=== PATIENT | female | born 1960 | race Caucasian/White ===

== ENCOUNTER 2025-04-26 12:29 | Emergency (ER) | payer MEDICARE, SELFPAY ==
[2025-04-26 12:43] VITALS: BP 111/76
--- NOTE | 2025-04-26 12:55 | ED.GENMED ---
History of Present Illness
General
Chief Complaint: Fall
Time Seen by Provider: 04/26/25 12:55
History of Present Illness
History of Present Illness:
REVIEW OF OLD RECORDS
The patient has a history of multiple sclerosis, A-fib, CHF, former smoker who denies COPD diagnosis despite what is listed in the chart and was admitted here in 2016 with MICHEAL
Note:
CHIEF COMPLAINT(S)
Fall with left arm pain and potential head injury.
HISTORY OF PRESENT ILLNESS
The patient is a 65-year-old female who presented to the emergency department following a fall at her residence in [facility]. Her reports she was found sitting on the bathroom floor after the safety rails outside the toilet gave way while
she was attempting to use them. At the time of discovery, she complained of left arm pain, specifically in the forearm and wrist area, and mentioned she may have hit her head. She denies current headache and shortness of breath and is on the
anticoagulant apixaban (Eliquis). Notably, the patient reports tenderness and mild swelling in the distal forearm. There was no mention of abdominal pain or pelvic injuries, and the patient did not sustain injuries to other parts of the body.
ADDITIONAL HISTORY OBTAINED FROM SOURCES OTHER THAN THE PATIENT
Per the patients , the patient was indeed found in the bathroom after returning from the grocery store. He notes the patient did not experience any headaches post-fall but expressed concern about a potential wrist fracture.
CHRONIC MEDICAL CONDITIONS SIGNIFICANTLY AFFECTING CARE
The patient has a notable history of multiple sclerosis (MS), for which she takes baclofen.
SOCIAL DETERMINANTS AFFECTING HEALTH
The patient resides in [facility] since December, with a potential mention of housing adjustment challenges.
SOCIAL HISTORY
The patient has a history of smoking but has since ceased. There is no current use of tobacco products.
REVIEW OF SYSTEMS
- Musculoskeletal: Left forearm and wrist pain with tenderness and mild swelling.
- Neurological: No current headaches; history of MS.
- Respiratory: Decreased breath sounds noted, but denies shortness of breath.
- Genitourinary: Reports feeling pressure or need to urinate, but no new abdominal pain.
- Integumentary: Physical exam reveals skin checks are implemented, and the patient currently uses a Purewick device for urinary collection.
PHYSICAL EXAM
- General: Appears somewhat generally weak and debilitated
- HEENT: Moist oral mucosa
- Cardiovascular: No chest wall tenderness
- Abdomen: Soft with no peritoneal signs, very mild diffuse tenderness however the patient states she has a sensation that she needs to void and denies abdominal trauma
- Neurologic: Excellent strength all extremities, no coordination deficits
- Psychiatric: Appropriate mental status, normal insight and judgement
- Extremities: Right BKA, no loss of range of motion of either hip
- Skin: No rash, no lesions
- Neurological: No acute neurological deficits noted.
- Respiratory: Slightly decreased breath sounds upon auscultation; related to past smoking history.
- Abdominal: No tenderness upon palpation.
Nursing notes reviewed and vital signs reviewed.
PROBLEM LIST
Acute:
- Fall with potential head injury.
- Left distal forearm and wrist pain with tenderness and mild swelling.
Chronic:
- Multiple Sclerosis (MS)
PLAN
- Obtain imaging: X-ray of the left wrist, chest X-ray, and computed tomography scan of the brain.
- Administer pain management: Offer acetaminophen or possible single dose of Percocet based on patients pain management preference.
- Discussed potential discharge from the emergency department, contingent upon normal imaging results.
DIFFERENTIAL DIAGNOSIS
The Differential Diagnosis includes, in no particular order and is not limited to:
- Wrist fracture
- Head injury with intracranial bleed
- Soft tissue injury of the left wrist
- Exacerbation of multiple sclerosis
- Neuronal injury due to fall
- Contusion from trauma
- Osteoporosis-related fracture
- Peripheral neuropathy due to fall
- Tendinitis of the wrist
- Subdural hematoma
RADIOLOGY
- Minimally displaced left distal radius fracture noted and no evidence for pneumonia
EKG
- Sinus 55, left axis deviation, poor R wave progression, no significant change from 10/18/2016
LABS
- None needed
UPDATE
The patient was given Percocet for pain. She was found to have a distal radius fracture but I do not feel that there is any significant amount of displacement to attempt reduction at this time. She was splinted. CT imaging also obtained.
04/26/25 - 16:[address] scan shows no evidence of intracranial bleeding. The patient has a confirmed broken wrist with a slight angulation, but there is no immediate need for reduction. The patient will be discharged with a prescription for Percocet for pain
management for a few days and is advised to follow up with an marketing operations specialist. Discharge paperwork is being prepared, and the prescription will be sent to the patients pharmacy. The patient�s will provide transportation.
Past History
Past History
ED Past Medical History: CVA, HTN, Hypercholesterolemia, NIDDM and Other (brain lesion, Fournge's gangrene)
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
Social History
Tobacco: Non-smoker
Alcohol: None
Drug: None
Personal:
Living: with family
Employment: Other
Family History
Family History: Other
Phy Exam
Physical Exam
Physical Exam:
See HPI
Course
Orders/Labs/Results
Orders:
Orders
04/26/25 13:05
Oxycodone/Acetaminophen [Percocet 5/325] 1 tablet PO NOW STA
CR Chest - 2 Views Urgent
Comment:
Reason For Exam: 90% RA former smoker
CR Forearm - Left 2 View Urgent
Comment:
Reason For Exam: distal trauma
04/26/25 13:07
CT Head W/o Iv Contrast Urgent
Comment:
Reason For Exam: head injury eliquis
04/26/25 13:09
Electrocardiogram (*1) Urgent
Reason for Study: Syncope
EKG- Treatment ONCE
04/26/25 13:58
Splints/Slings/Crut- Treatment ONCE
Location: Left
Type of Splint: Volar
Vital Signs
Initial and Last Documented VS:
Initial Vital Signs
Temp Pulse Resp BP Pulse Ox
36.8 C 54 16 111/76 92
04/26/25 12:43 04/26/25 12:43 04/26/25 12:43 04/26/25 12:43 04/26/25 12:43
Last Documented Vital Signs
Temp Pulse Resp BP Pulse Ox
36.8 C 81 16 125/78 91
04/26/25 12:43 04/26/25 16:05 04/26/25 16:05 04/26/25 16:05 04/26/25 16:05
*Pulse Oximetry
Patient hypoxic: yes (Borderline hypoxic at 92% on room air however the patient does have history of COPD)
*Critical Care Note
Total Time (30-74mins, 75-104mins- exclusive of procedures): Not Applicable
ED Attending Note
-
Portions of this chart may have been created with voice recognition software.� Occasional wrong word or��sound alike� substitutions may have occurred due to the inherent limitations of voice recognition software.
Discharge Plan
Departure
Patient Disposition: Home (Routine Discharge)
Date of Disposition: 04/26/25
Time of Disposition: 16:02
Patient with high blood pressure during this ER visit?: Yes
Discharge Problem:
Distal radius fracture, left
Instructions: Wrist fracture, BLOOD PRESSURE
Prescriptions:
New
oxycodone-acetaminophen [Percocet] 5-325 mg tablet
1 tab PO Q8H PRN (Reason: Pain) Qty: 14 0RF
No Action
amitriptyline 25 MG tablet
25 mg PO HS
glimepiride 2 MG tablet
2 mg PO DAILY
baclofen 10 MG tablet
10 mg PO BID
levothyroxine 150 MCG tablet
150 mcg PO DAILY
sertraline 50 MG tablet
50 mg PO DAILY
hydrochlorothiazide 12.5 MG tablet
12.5 mg PO DAILY
ranitidine HCl [Zantac] 150 MG tablet
150 mg PO DAILY
aspirin 81 MG tablet,delayed release (DR/EC)
81 mg PO DAILY
tramadol 50 MG tablet
100 mg PO Q6HPRN PRN (Reason: moderate pain)
metformin 1,000 MG tablet
1,000 mg PO BID@0800,1700
gabapentin 300 MG capsule
300 mg PO BID
ergocalciferol (vitamin D2) 50,000 UNITS capsule
50,000 units PO .EVERY TWO WEEKS
multivitamin with folic acid [Tab-A-Cata] 1 TABLET tablet
1 tab PO DAILY
glatiramer [Copaxone] 40 MG/ML syringe
40 mg SQ MOWEFR@0800
carvedilol 12.5 MG tablet
12.5 mg PO BID
lisinopril 20 MG tablet
20 mg PO DAILY
levocetirizine [Xyzal] 5 MG tablet
5 mg PO DAILY
Referrals:
Tera Perez DO [Family Provider, Internal Medicine]
Yosi Brannon MD [Active, Orthopedics]
Activity Restrictions/Additional Instructions:
You have a distal radius fracture at the left wrist. Follow-up Dr. Brannon or any orthopedic doctor that you would like. CAT scan of the brain shows no bleeding. CAT scan of the chest shows no sign of pneumonia. I am sending a prescription for
Percocet to your pharmacy. If you use Percocet, I recommend taking something like MiraLAX to prevent constipation.
Interventions
Interventions:
*Risk Screen - Suicide Last Done: 04/26/25 12:46
*General Assessment Last Done: 04/26/25 12:46
*Neglect/Abuse Screening Last Done: 04/26/25 12:46
*ED- Fall Risk Assessment Last Done: 04/26/25 12:43
*ED COVID-19 Vaccine History Last Done: 04/26/25 12:43
ED-Musculoskeletal Assessment Last Done: 04/26/25 12:46
ED- Neurological Assessment Last Done: 04/26/25 12:46
ED-Skin Assessment Last Done: 04/26/25 12:46
Discharge Date and Time
Print Language: BHUTANESE
[2025-04-26 13:00] VITALS: BP 119/74
[2025-04-26] MEDS: PERCOCET 5/325 1 TABLET PO (13:11)
[2025-04-26 14:00] VITALS: BP 106/71
[2025-04-26 14:24] VITALS: BP 121/71
[2025-04-26 16:05] VITALS: BP 125/78
== END 2025-04-26 16:39 | disposition home or self-care (01) ==
LOC: EMR 12:29
PROVIDERS: EMERGENCY PHYSICIAN Emergency Medicine; FAMILY PHYSICIAN Internal Medicine
DX: S52.572A Other intraarticular fracture of lower end of left radius, initial encounter for closed fracture (principal); W18.11XA Fall from or off toilet without subsequent striking against object, initial encounter; I11.0 Hypertensive heart disease with heart failure; I50.9 Heart failure, unspecified; Z87.891 Personal history of nicotine dependence; G35 Multiple sclerosis; I48.91 Unspecified atrial fibrillation
CPT/HCPCS: 99285; 29125; 70450; 71046; 73090; 93005

== ENCOUNTER 2025-05-21 15:42 | Inpatient (IN) | payer MEDICARE, SELFPAY ==
[2025-05-21] VITALS (33 sets, daily range): BP systolic 93–134; BP diastolic 50–101; BMI 32.3; BMI 32.2
--- NOTE | 2025-05-21 11:23 | CON.NEURO ---
Addendum entered and electronically signed by Damian Wilcox MD 05/21/25 14:22:
Studies reviewed.
I have personally examined the patient. I reviewed and agree with the [employer]ER's Note.
My addenda:
Awake, not alert, intermittently interactive. No acute distress.
Speech markedly reduced output with single words and stuttering.
Unable to follow single-step requests w/o difficulty. No tremor.
Extra-ocular movements grossly intact.
Facial movements full and symmetric. Hearing intact to normal conversational volume.
Normal UE movements bilaterally.
Neck: full ROM.
Chest: no dyspnea
Heart: no JVD
Ext: (-) Clubbing, (-) Cyanosis, (-) Edema
IMPRESSIONS/RECOMMENDATIONS:
Abrupt onset of change in mental status
Most likely metabolic in nature. Differential diagnosis includes acute ischemic stroke, the likelihood of an exacerbation of underlying previously diagnosed multiple sclerosis is unlikely as the patient's had a change in mental status
Seizure is a risk for this patient with a previously diagnosed temporal lesion and cystic encephalomalacia
Provided midazolam 2 mg IV x 1 without significant improvement of the patient's mentation, in fact the patient became more somnolent
Check MRI of brain with and without contrast
Check EEG
No clear indication patient would benefit from antiplatelet agents at this time
Would continue patient's usual anti-MS medications if utilizing same currently
Check for metabolic abnormalities producing symptomatology
Not clear patient would benefit from antiseizure medication this time
D/W patient / family / nursing
All questions answered.
Will continue to follow patient.
Original Note:
Documented by User: Anu Gonzalez NP 05/21/25 14:01
Neuro Assessment/Plan
Assessment
Patient is a right-handed 65 year old female with a past medical history of CVA, HTN, HLD, NIDDM, s/p L parietal brain resection who presents to [facility] on 05/21/2025 secondary to sudden onset of shaking behavior followed by confusion.
CT head 05/21/2025: No acute findings.
Brain MRI 09/07/2019:
1. Chronic connor and white matter abnormality, likely multifactorial etiology. Elements include:
-Moderate generalized brain volume loss.
-Focal encephalomalacia in the left parietal vertex and subjacent white matter, likely related to old ventriculostomy as there is an overlying sundeep hole.
-Linear hemosiderin-stained small focus in the left basal ganglia, pattern compatible with sequela of remote putaminal hemorrhage.
-Periventrical supratentorial white matter signal abnormality compatible with the provided history of multiple sclerosis, moderate in degree.
-Brainstem and cerebellum T2 hyperintensity and cystic encephalomalacia compatible with multiple sclerosis.
2. No new or enhancing foci. No change in the brain in the just over one year interval since the most recent comparison.
Brain MRI 06/14/2018:
Increased signal intensity seen previously in the posteromedial left cerebellum is not reproduced on the current examination. Otherwise, the volume and distribution of leukoaraiosis is stable compared to prior examination. No abnormal enhancement.
No new lesion or existing lesion progression.
Brain MRI 10/19/2016:
1. New 8mm focus of restricted diffusion high in the posterior LEFT parietal lobe with no evidence of T2 shine through and very minimal decreased signal intensity on the ADC map, findings are highly suspicious for an active/new MS plaque.
Differential includes possibility of a new area of nonhemorrhagic infarct. Contrast enhanced exam is recommended
2. Area of encephalomalacia posterior LEFT parietal lobe unchanged. Previous biopsy site.
3. Scattered foci of increased T2 signal intensity consistent with history of multiple sclerosis.
4. Previous lacunar infarct RIGHT parietal and LEFT cindy.
Brain MRI 12/03/2015:
New enhancing mass in the left occipital lobe. This is worrisome for neoplasm. Another possibility would be actively demyelinating plaque related to multiple sclerosis (particularly given the other white matter abnormalities). Further evaluation
recommended. This might include MR spectroscopy or biopsy.
Postsurgical findings in the left parietal white matter.
Redemonstration of scattered nonenhancing foci of increased inversion recovery signal in the parietal white matter bilaterally. One of the lesions on the right side is new. Redemonstration of left anterior pontine nonenhancing lesion. New
nonenhancing lesion of increased inversion recovery signal in the posterior left temporal white matter. Possible etiologies for these white matter abnormalities include demyelinating process such as multiple sclerosis, Lyme disease, vasculitis.
Please correlate with clinical and laboratory data.
Plan
Impressions: abrupt onset of shaking followed by confusion due to seizure vs CVA vs metabolic encephalopathy
-obtain EEG to monitor for seizure activity
-seizure precautions
-obtain brain MRI to look for stroke and/or new demyelinating lesions
-obtain blood work to rule out metabolic causes
-obtain previous records from [facility]
-DVT prophylaxis
-follow up with outpatient neurologist from [facility]
-continue anticoagulation and statin therapy for secondary stroke prevention
All questions encouraged and answered, plan of care discussed with Dr. Wilcox, hospitalist, nurse and family
Consultation
Order
Date of Consultation: 05/21/25
Requesting Provider: hospitalist
Reason for Consult: change in mental status
Subjective/Objective
Subjective Data
Date of Service: May 21, 2025
Patient is a right-handed 65 year old female with a past medical history of CVA, HTN, HLD, NIDDM, s/p L parietal brain resection who presents to [facility] on 05/21/2025 secondary to sudden onset of shaking behavior followed by confusion. Patient awake
but not responding to commands and mostly nonverbal, not able to contribute to history. History obtained by and chart. Per , she fell out of bed last night and he was able to put her back in bed. She then fell out of bed again this
morning after rocking back and forth around 11am. states he thinks she had a seizure and so he called EMS. Per paramedics, when arrived at patient's house, patient was found to be awake but not responsive to any commands. Upon arrival to ED,
patient is alert and awake, and able to provide her first name only.
Per , she recently was found to have UTI at [facility] and was hospitalized for 3 days. She was sent to rehab and discharged last . Of note, she had a stroke in December of 2009 when she was unable to move her limbs and received tPA at
[place]. Sees a neurologist at [facility] and is being treated for MS which was diagnosed in 2015 at [facility] by Dr. Tamayo. She was taking Copaxone as a disease modifying therapy, but states she is no longer taking this and does not know
what she is on.
She was recently seen here in April following a fall at her residence in [facility]. Head CT at that time was negative for acute intracranial abnormalities. She was found to have a left wrist fracture and was splinted.
She had her first episode of ataxia in 2013 was seen here and transferred to [facility] for brain biopsy due to new enhancing lesion in left parietal lobe. Her biopsy results were non-specific. She was seen here in November of 2015 for
abrupt change in gait with ataxia. She was transferred to [facility] for neurosurgical intervention given a new left temporal lesion.
In ED, she was hypotensive and bradycardic. She was afebrile. Labs so far unrevealing. She was awake but only stating her first name and no other information was obtained. She was not following commands. Her NIHSS was 4. She was not a candidate for
TNK given she is on Eliquis and onset of symptoms unknown. Her head CT showed no evidence of acute intracranial abnormality. Given minimal verbal output, minimal movement and blank stare, suspected seizure activity and was given 2mg Midazolam IV.
EEG was ordered.
Objective Data
Patient Allergies
Penicillins Allergy (Verified 10/18/16 12:14)
Hives
CVA Assessment
Onset of Stroke Symptoms
Onset of symptoms known: No
Date of onset of symptoms: 05/20/25
Time pt last seen normal is known: No
Date last time pt seen normal: 05/20/25
NIH Stroke Score
Level of Consciousness: 1 - Arousable
LOC Questions: 1-Answers one correctly
LOC Commands: 1-Performs one correctly
Best Horizontal Gaze: 1-Partial gaze palsy
Visual Cruz: 0=Normal, no visual loss
Facial Palsy: 0=Normal, symmetrical
Motor - Right Arm: UN=Amputation/jointfusion (STEPHEN, uncooperative)
Motor - Left Arm: UN=Amputation/jointfusion (cast to LUE)
Motor - Right Leg: UN-Amputation/jointfusion
Explanation of amputation/joint fusion: right BKA
Motor - Left Leg: UN-Amputation/jointfusion (uncooperative)
Limb Ataxia: UN-Amputation/jointfusion
Sensation: 0-Normal
Best Language: 0-No aphasia
Dysarthria: 0-Normal
Extinction and Inattention: 0-No abnormality
NIH Total Score:: 4
Tenecteplase Contraindications
Inclusion and Exclusion criteria reviewed: Yes
Reasons for NON-Tx with Thrombolytics ABSOLUTE Exclusions: Patient taking oral anticoagulant and last dose within 48 hours
IAT Contraindications: >6 hrs from onset/last seen normal and NIHSS < 6
Modified Gillespie Score (MRS)
-
Modified Gillespie Scale (mRS): Severe disability. Requires constant nursing care.
Score: 5
Review of Systems
-
Unable to obtain full review of systems at this time due to: Acuity
Physical Exam
-
General: Older than Stated Age
HEENT: Normocephalic, Atraumatic and Anicteric
Cardiac: JVD
GI: Non-distended
Skin: Other (cast to LUE)
Extremities: Other (R BKA)
Psych: Confused
Extended Neurological Exam
Attention Span & Concentration: Awake and Lethargic (Able to tell us her first name but nothing else)
Memory: Unable to Recall Personal History
Speech: Severely Reduced Output
Cranial Nerve II: Left Eye: Unable to Assess
Cranial Nerve II: Right Eye: Unable to Assess
Cranial Nerves III, IV, : Extraocular Movement: Unable to Assess
Cranial Nerve VII: Facial Symmetry: Normal Facial Symmetry
Cranial Nerve VIII: Hearing: Unable to Assess
Muscle Strength, Overall: Spontaneously Moves
Pronator Drift: Unable to Assess
Coordination: Unable to Assess
Data Reviewed
-
CT Head: Image Reviewed
EEG: Ordered
Labs: Ordered
Reviewed with: Physician, Nurse, Patient and Family
Old Records: Summarized
Medications
-
Home Medications
�Medication �Instructions �Recorded
amitriptyline 25 mg tablet 25 mg PO HS 12/27/15
baclofen 10 mg tablet 10 mg PO BID 03/05/16
glimepiride 2 mg tablet 2 mg PO DAILY 03/05/16
hydrochlorothiazide 12.5 mg tablet 12.5 mg PO DAILY 03/05/16
levothyroxine 150 mcg tablet 150 mcg PO DAILY 03/05/16
ranitidine HCl 150 mg tablet 150 mg PO DAILY 03/05/16
(Zantac)
sertraline 50 mg tablet 50 mg PO DAILY 03/05/16
aspirin 81 mg tablet,delayed 81 mg PO DAILY 10/18/16
release
carvedilol 12.5 mg tablet 12.5 mg PO BID 10/18/16
ergocalciferol (vitamin D2) 1,250 50,000 units PO .EVERY TWO WEEKS 10/18/16
mcg (50,000 unit) capsule
gabapentin 300 mg capsule 300 mg PO BID 10/18/16
glatiramer 40 mg/mL subcutaneous 40 mg SQ MOWEFR@0800 10/18/16
syringe (Copaxone)
levocetirizine 5 mg tablet (Xyzal) 5 mg PO DAILY 10/18/16
lisinopril 20 mg tablet 20 mg PO DAILY 10/18/16
metformin 1,000 mg tablet 1,000 mg PO BID@0800,1700 10/18/16
multivitamin with folic acid 400 1 tab PO DAILY 10/18/16
mcg tablet (Tab-A-Cata)
tramadol 50 mg tablet 100 mg PO Q6HPRN PRN moderate pain 10/18/16
oxycodone-acetaminophen 5 mg-325 1 tab PO Q8H PRN Pain #14 tabs 04/26/25
mg tablet (Percocet)
Past History
Past History
ED Past Medical History: CVA, HTN, Hypercholesterolemia, NIDDM and Other (brain lesion, Fournge's gangrene)
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
Family/Social History
Tobacco: Non-smoker
Alcohol: None
Drug: None
Personal:
Living: with family
Employment: Other
Family History: Other

Documented by User: Damian Wilcox MD 05/21/25 14:11
Neuro Assessment/Plan
Assessment
Patient is a right-handed 65 year old female with a past medical history of CVA, HTN, HLD, NIDDM, s/p L parietal brain resection who presents to [facility] on 05/21/2025 secondary to sudden onset of shaking behavior followed by confusion.
CT head 05/21/2025: No acute findings.
Brain MRI 09/07/2019:
1. Chronic connor and white matter abnormality, likely multifactorial etiology. Elements include:
-Moderate generalized brain volume loss.
-Focal encephalomalacia in the left parietal vertex and subjacent white matter, likely related to old ventriculostomy as there is an overlying sundeep hole.
-Linear hemosiderin-stained small focus in the left basal ganglia, pattern compatible with sequela of remote putaminal hemorrhage.
-Periventrical supratentorial white matter signal abnormality compatible with the provided history of multiple sclerosis, moderate in degree.
-Brainstem and cerebellum T2 hyperintensity and cystic encephalomalacia compatible with multiple sclerosis.
2. No new or enhancing foci. No change in the brain in the just over one year interval since the most recent comparison.
Brain MRI 06/14/2018:
Increased signal intensity seen previously in the posteromedial left cerebellum is not reproduced on the current examination. Otherwise, the volume and distribution of leukoaraiosis is stable compared to prior examination. No abnormal enhancement.
No new lesion or existing lesion progression.
Brain MRI 10/19/2016:
1. New 8mm focus of restricted diffusion high in the posterior LEFT parietal lobe with no evidence of T2 shine through and very minimal decreased signal intensity on the ADC map, findings are highly suspicious for an active/new MS plaque.
Differential includes possibility of a new area of nonhemorrhagic infarct. Contrast enhanced exam is recommended
2. Area of encephalomalacia posterior LEFT parietal lobe unchanged. Previous biopsy site.
3. Scattered foci of increased T2 signal intensity consistent with history of multiple sclerosis.
4. Previous lacunar infarct RIGHT parietal and LEFT cindy.
Brain MRI 12/03/2015:
New enhancing mass in the left occipital lobe. This is worrisome for neoplasm. Another possibility would be actively demyelinating plaque related to multiple sclerosis (particularly given the other white matter abnormalities). Further evaluation
recommended. This might include MR spectroscopy or biopsy.
Postsurgical findings in the left parietal white matter.
Redemonstration of scattered nonenhancing foci of increased inversion recovery signal in the parietal white matter bilaterally. One of the lesions on the right side is new. Redemonstration of left anterior pontine nonenhancing lesion. New
nonenhancing lesion of increased inversion recovery signal in the posterior left temporal white matter. Possible etiologies for these white matter abnormalities include demyelinating process such as multiple sclerosis, Lyme disease, vasculitis.
Please correlate with clinical and laboratory data.
Impressions: abrupt onset of shaking followed by confusion due to seizure vs CVA vs metabolic encephalopathy
Plan
-obtain EEG to monitor for seizure activity
-seizure precautions
-obtain brain MRI to look for stroke and/or new demyelinating lesions
-obtain blood work to rule out metabolic causes
-obtain previous records from [facility]
-DVT prophylaxis
-follow up with outpatient neurologist from [facility]
-continue anticoagulation and statin therapy for secondary stroke prevention
All questions encouraged and answered, plan of care discussed with Dr. Wilcox, hospitalist, nurse and family
CVA Assessment
NIH Stroke Score
NIH Total Score:: 4
Modified Gillespie Score (MRS)
-
Score: 5
--- NOTE | 2025-05-21 11:29 | ED.CVA ---
History of Present Illness
General
Chief Complaint: CVA/TIA Symptoms
Source: patient and ambulance crew
Exam Limitations: altered mental status
Time Seen by Provider: 05/21/25 11:26
Nursing documentation reviewed up to this point in time: agreed with
Onset of Stroke Symptoms
Onset of symptoms known: Yes
Date of onset of symptoms: 05/21/25
History of Present Illness
History of Present Illness:
Patient presents to ED secondary to sudden onset of shaking behavior followed by confusion. Per paramedics, when arrived at patient's house, patient was found to be awake but not responsive to any commands. Upon arrival to ED, patient is alert and
awake, and able to provide her name. However, patient unable to provide any further information at this time.
Past History
Past History
ED Past Medical History: CVA, HTN, Hypercholesterolemia, NIDDM and Other (brain lesion, Fournge's gangrene)
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
Social History
Tobacco: Non-smoker
Alcohol: None
Drug: None
Personal:
Living: with family
Employment: Other
Family History
Family History: Other
Review of Systems
Review of Systems
Allergies reviewed?: Yes
Unable to obtain full review of systems at this time due to: due to acuity
All Other Systems: Not applicable
Phy Exam
Physical Exam
Physical Exam:
Physical Exam
General: no apparent distress, not acutely ill. afebrile
Head: nc/at
Neck: supple. no jvd.
Heart: s1/s2 regular rate and rhythm,
Lungs: no acute respiratory distress. clear bilaterally
Abdomen: normal bowel sounds. not tender. no CVAT
Neuro: alert and awake. moving extremities spontaneously
Skin: cast noted over left forearm.
Extremities: no edema. R BKA
Course
Orders/Labs/Results
Orders:
Orders
05/21/25 11:23
Electrocardiogram (*1) Urgent
Reason for Study: Other
Other Reason for Exam: Possible Stroke
Cardiac Monitoring- Treatment ONCE
IV Insert/Care/Rem.- Treatment PRN
Vital Signs As Directed
Frequency: Other
Weight As Directed
Frequency: Once
Comment: ZERO STRETCHER SCALE FOR ACCURATE WEIGHT
O2 Therapy [RESP] Urgent
Titrate/Wean O2 to maintain O2 sat greater than (%): 93
Special Instructions: MAINTAIN CONTINUOUS O2 SATS > OR = 93%
05/21/25 11:24
EKG- Treatment ONCE
05/21/25 11:25
EEG Routine Routine
Reason for Exam: ? CPS
Neurology Consult:: DR. VOGEL
05/21/25 11:27
NEUROLOGY CONSULT Urgent
Consulting Provider: Damian Vogel
Was physician already notified: Yes
Reason for consult: mental status change
05/21/25 11:28
CT HEAD STROKE ALERT W/o Cont Stat
Comment:
Reason For Exam: stroke
05/21/25 11:29
Midazolam HCl [Versed] 2 mg IV NOW STA
05/21/25 11:40
Cardiovascular Evaluation Urgent
Complete Blood Count/With Diff Urgent
Comprehensive Metabolic Panel Urgent
Free T4 Urgent
Comment: ADD ON
Glycohemoglobin (HgbA1c) Urgent
PTT Urgent
Prothrombin Time Urgent
TSH Urgent
Comment: ADD ON
Troponin I Urgent
Vitamin B12 Urgent
Comment: ADD ON
Vitamin D, 25-Oh Urgent
05/21/25 13:47
Add On- LAB Routine
Tests Added?: TSH, free t4, B12, vitamin D, hgb A1C, lipid panel
05/21/25 15:13
Ammonia Routine
Comment: May add to blood in lab
05/21/25 15:25
Admit/Transfer Patient As Directed
Co-Sign Provider:
Level of Care: Inpatient admission
Assign to:: Telemetry
Physician / Group: Hospitalist
Diagnosis: TME
Reason for Telemetry: Medication for Arrhythmia
Date to Stop Telemetry: 05/23/25
Time to Stop Telemetry: 11:00
Reason for Hospitalization: Further workup and management of possible CVA vs. Seizure vs. TME
Expected length of stay greater than two midnights?: Yes
ELOS- Estimated Length of Stay in days: 3
I certify the patient meets the requirements for IP care: Yes
PRN Pain Medication Management As Directed
May give lesser potent ordered pain med per pt: Yes
preference::
Protocol:: Medication orders for pain may be administered in a
manner that supports deferring to patient preference
when the pt is:
- Requesting an ordered lesser potent pain medication.
Least to most potent pain medications are defined
as: acetaminophen < NSAID < tramadol < opioids
(morphine, oxycodone, hydromorphone).
- Requesting a lesser dose of the same medication IF
ORDERED.
- Requesting a less intrusive route of administration
if both routes are prescribed by the provider (PO <
IV).
05/21/25 16:31
Acetaminophen [Tylenol] 975 mg PO Q8HPRN PRN mild pain
Albuterol [ProAIR HFA INHALER] 2 puff INH R Q4HPRN PRN sob
Baclofen [Lioresal] 20 mg PO BIDPRN PRN spasms
Ferrous Sulfate [Feosol] 325 mg PO TID
Sennosides [Senokot] 17.2 mg PO DAILYPRN PRN constipation
05/21/25 18:00
Insulin Aspart Pen [Novolog Flexpen] 12 units SC QPM
05/21/25 20:00
Apixaban [Eliquis] 2.5 mg PO BID
Gabapentin [Neurontin] 300 mg PO BID
05/21/25 22:00
Atorvastatin [Lipitor] 20 mg PO HS
05/22/25 06:00
Levothyroxine [Synthroid] 150 mcg PO DAILY @ 0600
05/22/25 08:00
Amiodarone [Pacerone] 200 mg PO DAILY
Aspirin Low Dose EC [Aspir Low (Enteric Coated)] 81 mg PO DAILY
Bumetanide [Bumex] 2 mg PO DAILY
Insulin Aspart Pen [Novolog Flexpen] 14 units SC DAILY
Metoprolol Xl [Toprol Xl] 25 mg PO DAILY
Sertraline HCl [Zoloft] 50 mg PO DAILY
insulin glargine [Lantus Solostar U-100 Insulin] 8 unit SC DAILY
05/22/25 13:42
MR Brain W/o & With Contrast Routine
Reason For Exam: change in mental status, history of MS
Recent pill cam endoscopy?: No
05/23/25 11:00
DC Protocol for Telemetry ONCE
Abnormal Lab Results
05/21/25 05/21/25
11:40 15:13
MCHC 32.1 L g/dL
(33.0-37.0)
RDW 16.5 H %
(11.5-14.5)
Absolute Monos (auto) 0.7 H 10^3/uL
(0.1-0.6)
PT 14.7 H Sec
(11.4-14.6)
Chloride 110 H mmol/L
(98-107)
BUN 26 H mg/dl
(7-17)
Creatinine 1.5 H mg/dL
(0.6-1.0)
Glucose 138 H mg/dl
(70-99)
Hemoglobin A1c 7.7 H %
(4.0-5.6)
Ammonia < 9 L umol/L
(9-30)
Triglycerides 181 H mg/dl
(10-149)
VLDL Cholesterol, Calc 36 H mg/dl
(0-30)
TSH 6.64 H uIU/ml
(0.47-4.68)
05/21/25 11:40
05/21/25 11:40
Vital Signs
Initial and Last Documented VS:
Initial Vital Signs
BP
93/65
05/21/25 11:45
Last Documented Vital Signs
Temp Pulse Resp BP Pulse Ox
97.8 F 50 17 166/72 94
05/22/25 07:26 05/22/25 07:26 05/22/25 07:26 05/22/25 07:26 05/22/25 07:26
MDM/Problems Addressed
MDM/Problems Addressed:
Stroke alert activated upon arrival. Patient evaluated at bedside by Dr. Vogel, neurology. CT head without contrast ordered.
CT head: No acute findings.
Due to persistent mental status change, patient was admitted for further evaluation treatment. Seizure versus CVA versus toxic encephalopathy
*Pulse Oximetry
Patient hypoxic: no
*Critical Care Note
Total Time (30-74mins, 75-104mins- exclusive of procedures): Not Applicable
ED Attending Note
-
Portions of this chart may have been created with voice recognition software.� Occasional wrong word or��sound alike� substitutions may have occurred due to the inherent limitations of voice recognition software.
Discharge Plan
Departure
Patient Disposition: Admit
Date of Disposition: 05/21/25
Time of Disposition: 12:39
Admit to: Telemetry
Presentation/result/management discussed w/ accepting MD/DO: Hospitalist
Discharge Problem:
Altered mental status
Interventions
Interventions:
*Risk Screen - Suicide Last Done: 05/21/25 11:46
*General Assessment Last Done: 05/21/25 11:46
*Neglect/Abuse Screening Last Done: 05/21/25 11:46
*ED- Fall Risk Assessment Last Done: 05/21/25 11:46
*ED COVID-19 Vaccine History Last Done: 05/21/25 11:46
*Nursing Disposition Last Done: 05/21/25 19:26
ED- Pulmonary Assessment Last Done: 05/21/25 11:53
ED- Neurological Assessment Last Done: 05/21/25 11:53
ED- Cardiac Assessment Last Done: 05/21/25 11:53
ED Swallowing Screen Last Done: 05/21/25 16:46
Discharge Date and Time
Discharge Date/Time: 05/21/25 19:28
[2025-05-21] MEDS: VERSED 2 MG IV (11:30)
[2025-05-21 11:57] LABS: Hematocrit 40.5 % (37.0-47.0); Hemoglobin 13.0 g/dL (12.0-16.0); Mean Corp Hgb Conc. 32.1 g/dL (33.0-37.0); Mean Corpuscular Volume 84.2 fL (81.0-99.0); Nucleated Red Blood Cells % 0 %; Platelet Count 191 10^3/uL (130-400); Red Cell Dist. Width 16.5 % (11.5-14.5)
[2025-05-21 12:10] LABS: INR 1.12; PT 14.7 Sec (11.4-14.6)
[2025-05-21 12:11] LABS: ALT (SGPT) 16 U/L (0-35); APTT 32.0 Sec (23.4-35.0); AST (SGOT) 21 U/L (14-36); Albumin 4.4 g/dl (3.5-5.0); Alkaline Phosphatase 107 U/L (38-126); Blood Urea Nitrogen 26 mg/dl (7-17); Calcium 9.9 mg/dl (8.4-10.2); Carbon Dioxide 24 mmol/L (22-30); Chloride 110 mmol/L (98-107); Estimated Creatinine Clearance 43 ml/min; Glucose 138 mg/dl (70-99); Potassium 3.9 mmol/L (3.5-5.1); Sodium 144 mmol/L (135-145); Total Protein 7.6 g/dl (6.3-8.2); eGFR 37.96
--- NOTE | 2025-05-21 12:15 | PHANOTE ---
med rec note- patient just discharge from a shelter on 05/16/25 and sent home with those medication. spouse does not know patient medications, spouse also stated she took her evening medication at 4:30am today 05/21/25
[2025-05-21 12:19] LABS: Troponin I 0.012 ng/ml
[2025-05-21 14:26] LABS: HDL Cholesterol 49 mg/dl; LDL Cholesterol, Calculated 67 mg/dl; Very Low Density Lipoprotein 36 mg/dl (0-30)
[2025-05-21 14:36] LABS: Glycohemoglobin (HgbA1c) 7.7 % (4.0-5.6)
--- NOTE | 2025-05-21 14:42 | EEG.RPT ---
Electroencephalogram Report
Recording
Date of EE05/21/25
Type of EEG: Routine
Length of EEG recordin minutes
Done with Video Recording: Yes
Patient Status: Emergency Room
Recording Conditions: Awake and Drowsy
Hyperventilation Performed: No
Photic Stimulation Performed: Yes
Report
LESS THAN 1 HOUR EEG REPORT
EEG INTERPRETATION:
Moderately abnormal EEG for age in wakefulness through drowsiness due to diffuse bihemispheric slowing and occipitally-predominant triphasic waves.
CLINICAL CORRELATION:
This study was suggestive of diffuse cortical dysfunction without focal abnormality which may be metabolic in origin. No clear seizure activity was recorded.
Clinical correlation is advised.
METHODS:
A 21 channel digitized electroencephalogram (EEG) was performed in the emergency department. The 10/20 international system of electrode placement was used with ECG and lateral/vertical eye movements recorded. Video was recorded.
QUALITY OF STUDY:
Fair, limited by muscle artifact
ELECTROENCEPHALOGRAPHER IMPRESSION(S):
Background
There was a medium amplitude poorly organized anterior-posterior voltage gradient of theta activity at maximum
There were no significant asymmetries of background activity noted.
Sleep
Drowsiness present
Photic Stimulation
Failed to activate the record.
Abnormal EEG Activity
Intermittently seen were individual occipitally-predominant generalizing triphasic waves.
ECG
Normal sinus rhythm
[2025-05-21 15:04] LABS: Vitamin D, 25-OH*** 30.5 ng/mL (30-80)
[2025-05-21 15:18] LABS: TSH 6.64 uIU/ml (0.47-4.68)
--- NOTE | 2025-05-21 15:35 | HPS.HSE ---
Addendum entered and electronically signed by Galdino Quick MD 05/22/25 09:17:
Attending Addendum- seen and examined- 05/21/25
I performed a history and physical exam of the patient and discussed his management with the resident. I reviewed the resident's note and agree with the documented findings and plan of care CC/HPI- Patient presented from home with due to
unresponsive episode ?shaking and slurring speech after being found on ground last PM. Patient unable to provide history h/o records and bernabe. Full 12 point ROS unable to obtain. Patient had stroke alert due to unresponsive episode which
was called in ED and seen promptly bu neuro Versed given with no significant change except increased lethargy. Exam- vitals reviewed in EMR GEN-NAD heart RRR no MRG lungs clear abd soft Neuro intermittently following commands, slurred speech and
speaks in one word statements, MS 5/5 AAO x 1 Ext- LUE casted Right AKA
Plan:
# CIMS
- admit to tele
- r/o CVA vs seizure
- neuro c/s in ed
- check MRI, EEG
- unclear etiology- per not too far from baseline
- r/o infection
- repeat eletrolytes
# Recent left distal rad fx
- casted
- f/u with ortho as OP
# H/O MS
- PT OT f/u neuro
# IDDM
- cont lantus 8, novolog am 14/ pm 12
- check HBa1c
- accuchecks and SSI
# Paroxysmal A fib- cont amiodarone metoprolol and Eliquis
# Depression- cont sertraline
# CKD3b- avoid NT agents
# Hypothyroid- tsh mildly elevated - cont levothyroxine repeat in 4-6 weeks
# CHF- cont Lasix- no recent echo in system- t/c repeat during this hospitalization if warranted
# PN- cont gabapentin
# HLD- cont atorvastatin
DVTp- Eliquis
Code- Full d/w
Dispo Eventual DC to SNF likely
ACP
Patient unable to consent to discuss, was with , time spent explanation of advance directives, changes in health status, patient�s health care wishes if the patient becomes unable to make health decisions, goals of care, code status, and
prognosis- 16 minutes
Time spent coordinating care, review of plan of care with resident, personally reviewed previous records in EMR, med rec, labs, radiology, d/w nursing, family total time documented is exclusive of any additional time listed that was spent in advance
care planning discussion -� 75 minutes
Original Note:
Family Physician
-
Family Physician: Tera Perez
Chief Complaint
-
Shaking episode
History of Present Illness
Patient seen at the bedside in the ED, with her , Bernabe Malu, also at the bedside. Patient is unable to provide a history, so the history is taken via Bernabe. Patient was found by to be lying on the ground in her bedroom
around 11 PM last night. Patient was conscious, but she was not conversant. The patient remained laying on the floor until 4 AM, when the lifted her into her bed. Patient's found her shaking in bed and slurring her words around 10
AM today. describes the shaking as 'rolling [id number]', without rhythmic shaking. states patient did not lose consciousness during the episode. states the patient was 'sleepy' both before and after the shaking
episode. denies seeing urination during the episode. denies patient having recent alcohol consumption, drug use, or changes in medications.
Medical History
Past Medical History
Past Medical History: Reports Arrhythmia (Atrial fibrillation), CHF, CVA, HTN, Hypercholesterolemia, Hypothyroidism, IDDM and Other (CKD, Multiple sclerosis)
Past Surgical History: Reports Brain (Unspecified resection) and Other (R BKA; x1; Shoulder (unspecified))
Social History
Tobacco: Former Smoker (45 pack-years)
Alcohol: Former (No alcohol in 20+ years)
Drug: None
Personal:
Living: With Family
Family History
Family History: Cancer (unspecified) and Diabetes
Allergies / Home Medications
Allergies reflects when Allergies were last updated in [facility].
Home Medications with original date entered in [facility]
Allergy/Medication List:
Penicillins - Hives
Review of Systems
-
Constitutional: Denies Fever, Fatigue or Chills
EENT: Reports No Symptoms
Respiratory: Denies Cough or Trouble Breathing
Cardiac: Denies Chest Pain or Palpitations
Abdomen/GI: Denies Abdominal Pain, Nausea, Vomiting or Diarrhea
: Reports No Symptoms
Musculoskeletal: Denies Edema
Skin: Reports No Symptoms
Neurological: Denies Headache, Weakness or Numbness
Psych: Reports Other (Somnolent)
Physical Exam
Vital Signs
Vital Signs
Temp Pulse Resp BP Pulse Ox
98.2 F 52 20 133/84 92
05/21/25 15:23 05/21/25 15:23 05/21/25 15:23 05/21/25 15:00 05/21/25 15:23
Physical Exam
General: No Apparent Distress
HEENT: NormoCephalic and Atraumatic
Respiratory: Clear and Non Labored Respirations; No Wheezes or Crackles
Cardiac: S1/S2 and Bradycardia; No Murmur, Rub, Gallop or Peripheral Edema
GI: Soft, Non Tender and Normal Bowel Sounds
Musculoskeletal: No Edema
Skin: Warm and Dry
Neuro: Awake, Alert, Oriented (Oriented to person only), No Motor Deficits, Nonfocal/grossly intact and No Sensory Deficits
Psych: Other (Somnolent)
Laboratory Results
-
05/21/25 11:40
05/21/25 11:40
Laboratory Results
PT 14.7 Sec (11.4-14.6) H 05/21/25 11:40
INR 1.12 05/21/25 11:40
APTT 32.0 Sec (23.4-35.0) 05/21/25 11:40
Total Bilirubin 1.0 mg/dl (0.2-1.3) 05/21/25 11:40
AST 21 U/L (14-36) 05/21/25 11:40
ALT 16 U/L (0-35) 05/21/25 11:40
Alkaline Phosphatase 107 U/L (38-126) 05/21/25 11:40
Troponin I 0.012 ng/ml 05/21/25 11:40
Impression/Plan
-
#Shaking w/ confusion
- Etiology unclear�seizure vs CVA vs TME
- CTA head: NAIA
- Brain MRI pending
- EEG pending
- Trend CBC, BMP
- Urinalysis with reflex to culture pending
- Patient given midazolam 2 mg IV, no clinical improvement
- Per neuro, at this time there is no clear benefit for antiseizure or antiplatelet medications
# CKD stage IIIb
-Trend BMP
# Hypertension
� C/W amlodipine
#IDDM
� C/W home insulin regimen
# A-fib
-C/W apixaban, metoprolol
#HLD
� C/W atorvastatin
# Left distal radius fracture
-Currently in cast, monitor clinically
#DVT PPx
� C/W apixaban
CODE STATUS: Full code
[2025-05-21 15:37] LABS: Vitamin B12 242 pg/ml (239-931)
[2025-05-21 15:37] LABS: Ammonia < 9 umol/L (9-30)
[2025-05-21] MEDS: FEOSOL 325 MG PO ×2 (17:45→21:02)
[2025-05-21] MEDS: NOVOLOG FLEXPEN 6 UNITS SC (18:11)
[2025-05-21 18:12] LABS: Glucose - Point of Care 153 mg/dl (70-99)
--- NOTE | 2025-05-21 18:56 | PTCARENOTE ---
Rn clinic coordinator- admission completed with on the phone. Patient's Bernabe requesting patient not sign anything without him here. passed on to primary nurse.
[2025-05-21] MEDS: ELIQUIS 2.5 MG PO (21:01)
[2025-05-21] MEDS: NEURONTIN 300 MG PO (21:02)
[2025-05-21] MEDS: LIPITOR 20 MG PO (21:02)
[2025-05-21 21:05] LABS: Glucose - Point of Care 128 mg/dl (70-99)
--- NOTE | 2025-05-21 22:00 | PTCARENOTE ---
Patient received from ED via stretcher. Patient unable to stand r/t weakness and not having her prosthetic leg for a right BKA. Spouse at bedside and states he will bring in prosthetic tomorrow. Patient oriented to self only, pleasantly confused.
Call cazares left within reach, will continue to monitor.
[2025-05-22] VITALS (7 sets, daily range): BP systolic 104–170; BP diastolic 11–76; BMI 32.2; BMI 31.3
[2025-05-22 04:21] LABS: Urine Character Cloudy (Clear)
[2025-05-22 04:29] LABS: Urine Red Blood Cell 0-2 /HPF (0-2); Urine White Cell 16-20 /HPF (0-5)
[2025-05-22] MEDS: SYNTHROID PO (05:15)
[2025-05-22 07:02] LABS: Hematocrit 39.9 % (37.0-47.0); Hemoglobin 12.8 g/dL (12.0-16.0); Mean Corp Hgb Conc. 32.1 g/dL (33.0-37.0); Mean Corpuscular Volume 83.5 fL (81.0-99.0); Nucleated Red Blood Cells % 0 %; Platelet Count 166 10^3/uL (130-400); Red Cell Dist. Width 16.7 % (11.5-14.5)
[2025-05-22 07:26] LABS: Blood Urea Nitrogen 20 mg/dl (7-17); Calcium 9.6 mg/dl (8.4-10.2); Carbon Dioxide 24 mmol/L (22-30); Chloride 112 mmol/L (98-107); Estimated Creatinine Clearance 52 ml/min; Glucose 136 mg/dl (70-99); Potassium 3.7 mmol/L (3.5-5.1); Sodium 143 mmol/L (135-145); eGFR 49.61
[2025-05-22 07:51] LABS: Glucose - Point of Care 152 mg/dl (70-99)
[2025-05-22] MEDS: PACERONE 200 MG PO (08:34)
[2025-05-22] MEDS: FEOSOL 325 MG PO ×3 (08:34→20:46)
[2025-05-22] MEDS: ELIQUIS 2.5 MG PO ×2 (08:36→20:56)
[2025-05-22] MEDS: TYLENOL 975 MG PO ×2 (08:36→17:15)
[2025-05-22] MEDS: ASPIR LOW (ENTERIC COATED) 81 MG PO (08:37)
[2025-05-22] MEDS: ZOLOFT 50 MG PO (08:37)
[2025-05-22] MEDS: TOPROL XL 25 MG PO (08:37)
[2025-05-22] MEDS: BUMEX 2 MG PO (08:37)
[2025-05-22] MEDS: CYANOCOBALAMIN 1000 MCG IM (09:26)
[2025-05-22] MEDS: ROCEPHIN 1000 MG IV (09:32)
[2025-05-22] MEDS: STERILE WATER FOR INJECTION 10 ML IV (09:32)
[2025-05-22] MEDS: FLUSH (NSS) 2 FLUSH IV (09:32)
--- NOTE | 2025-05-22 10:08 | CM ---
Patient seen at bedside
IA completed
Dx: TME
PMH: R BKA, Arrhythmia (Atrial fibrillation), CHF, CVA, HTN, Hypercholesterolemia, Hypothyroidism, IDDM and Other CKD, Multiple sclerosis
Left distal radial fx 04/26/25
Lives at [facility] apartment with , elevator access
PLOF: walker, wheelchair
DME: Walker, wheelchair, commode, glucometer, home 02 states 2L HS (does not recall vendor)
Denies VN, states has been at [facility]
PCP: Tera Perez
Pharmacy: [facility]
PLAN: TBD, continue to follow hospital progress, CM to follow for needs
--- NOTE | 2025-05-22 10:12 | W.PN.NEURO.1 ---
Today's Communication / Plan
-
Continue to treat newly discovered urinary tract infection which may be the source of the patient's transient cognitive difficulties with a low threshold for developing same
Neuro Assessment/Plan
Assessment
Patient is a right-handed 65 year old female with a past medical history of CVA, HTN, HLD, NIDDM, s/p L parietal brain resection who presents to [facility] on 05/21/2025 secondary to sudden onset of shaking behavior followed by confusion.
CT head 05/21/2025: No acute findings.
Brain MRI 09/07/2019:
1. Chronic connor and white matter abnormality, likely multifactorial etiology. Elements include:
-Moderate generalized brain volume loss.
-Focal encephalomalacia in the left parietal vertex and subjacent white matter, likely related to old ventriculostomy as there is an overlying sundeep hole.
-Linear hemosiderin-stained small focus in the left basal ganglia, pattern compatible with sequela of remote putaminal hemorrhage.
-Periventrical supratentorial white matter signal abnormality compatible with the provided history of multiple sclerosis, moderate in degree.
-Brainstem and cerebellum T2 hyperintensity and cystic encephalomalacia compatible with multiple sclerosis.
2. No new or enhancing foci. No change in the brain in the just over one year interval since the most recent comparison.
Brain MRI 06/14/2018:
Increased signal intensity seen previously in the posteromedial left cerebellum is not reproduced on the current examination. Otherwise, the volume and distribution of leukoaraiosis is stable compared to prior examination. No abnormal enhancement.
No new lesion or existing lesion progression.
Brain MRI 10/19/2016:
1. New 8mm focus of restricted diffusion high in the posterior LEFT parietal lobe with no evidence of T2 shine through and very minimal decreased signal intensity on the ADC map, findings are highly suspicious for an active/new MS plaque.
Differential includes possibility of a new area of nonhemorrhagic infarct. Contrast enhanced exam is recommended
2. Area of encephalomalacia posterior LEFT parietal lobe unchanged. Previous biopsy site.
3. Scattered foci of increased T2 signal intensity consistent with history of multiple sclerosis.
4. Previous lacunar infarct RIGHT parietal and LEFT cindy.
Brain MRI 12/03/2015:
New enhancing mass in the left occipital lobe. This is worrisome for neoplasm. Another possibility would be actively demyelinating plaque related to multiple sclerosis (particularly given the other white matter abnormalities). Further evaluation
recommended. This might include MR spectroscopy or biopsy.
Postsurgical findings in the left parietal white matter.
Redemonstration of scattered nonenhancing foci of increased inversion recovery signal in the parietal white matter bilaterally. One of the lesions on the right side is new. Redemonstration of left anterior pontine nonenhancing lesion. New
nonenhancing lesion of increased inversion recovery signal in the posterior left temporal white matter. Possible etiologies for these white matter abnormalities include demyelinating process such as multiple sclerosis, Lyme disease, vasculitis.
Please correlate with clinical and laboratory data.
EEG was suggestive of metabolic abnormality producing symptoms
Impressions: abrupt onset of shaking followed by confusion due to metabolic encephalopathy
Plan
Continue to treat newly discovered urinary tract infection which may be the source of the patient's transient cognitive difficulties with a low threshold for developing same
continue anticoagulation and statin therapy for secondary stroke prevention
follow up with outpatient neurologist from [facility]
Subjective/Objective
Subjective Data
Date of Service: May 22, 2025
'My arm hurts.'
Objective Data
Vital Signs
Temp Pulse Resp BP Pulse Ox
36.6 C 50 17 166/72 94
05/22/25 07:26 05/22/25 08:34 05/22/25 07:26 05/22/25 08:34 05/22/25 07:26
Lab Results
05/22/25 06:27
05/22/25 06:27
PT 14.7 Sec (11.4-14.6) H 05/21/25 11:40
INR 1.12 05/21/25 11:40
APTT 32.0 Sec (23.4-35.0) 05/21/25 11:40
Sodium 143 mmol/L (135-145) 05/22/25 06:27
Potassium 3.7 mmol/L (3.5-5.1) 05/22/25 06:27
BUN 20 mg/dl (7-17) H 05/22/25 06:27
Glucose 136 mg/dl (70-99) H 05/22/25 06:27
Calcium 9.6 mg/dl (8.4-10.2) 05/22/25 06:27
LDL Cholesterol, Calc 67 mg/dl 05/21/25 11:40
Vitamin B12 242 pg/ml (239-931) 05/21/25 11:40
Patient Allergies
Penicillins Allergy (Verified 10/18/16 12:14)
Hives
Review of Systems
-
History Source: Patient
All other systems: Reviewed and negative
EENT: Negative Swallowing Difficulty
Respiratory: Negative Trouble Breathing
Cardiac: Negative Chest Pain
Abdomen/GI: Negative Incontinence of Stool
Genitourinary: Negative Incontinence
Musculoskeletal: Back Pain; Negative Neck Pain
Neuro: Negative Dizzy or Headache
Physical Exam
-
General: Older than Stated Age
Eyes: Round OU, [place] Conjunctivae and No Ptosis
HEENT: Normocephalic, Atraumatic and Anicteric
Neck: Full Range of Motion
Respiratory: No Dyspnea
Cardiac: JVD
GI: Non-distended
Skin: Other (cast to LUE)
Extremities: Other (R BKA)
Psych: Negative Intact Judgement/Insight
Extended Neurological Exam
Mood & Affect: Mood Unremarkable and Affect Unremarkable
Attention Span & Concentration: Awake, Alert, Interactive and Mild Difficulty with 2 Step Request
Tremor: Hand Tremor Absent and Head Tremor Absent
Speech: Quality Unremarkable and Quantity Unremarkable
Cranial Nerve II: Left Eye: Pupillary Size Unremarkable and Visual Cruz Grossly Intact
Cranial Nerve II: Right Eye: Pupillary Size Unremarkable and Visual Cruz Grossly Intact
Cranial Nerves III, IV, : Extraocular Movement: Extraocular Movement Full in all Directions
Cranial Nerve VII: Facial Symmetry: Normal Facial Symmetry
Cranial Nerve VIII: Hearing: Unremarkable Hearing to Normal Conversational Volume
Cranial Nerve XI: Shoulder Shrug: Unremarkable
Muscle Strength, Overall: Full in Upper Extremities
Muscle Bulk & Tone: Bulk Unremarkable and Tone Unremarkable
Pronator Drift: No Drift in Upper Extremities
Touch Sensation: Unremarkable
Coordination: Tvmngw-[id number]-[id number] Testing Unremarkable
Past History
Past History
ED Past Medical History: CVA, HTN, Hypercholesterolemia, NIDDM and Other (brain lesion, Fournge's gangrene)
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
Social History
Tobacco: Non-smoker
Alcohol: None
Drug: None
Personal:
Living: with family
Employment: Other
Family History
Family History: Other
Medications
-
Medications:
Generic Name Dose Route Start Last Admin
Trade Name Freq PRN Reason Stop Dose Admin
Acetaminophen 975 mg 05/21/25 16:31 05/22/25 08:36
Acetaminophen 325 Mg Tablet PO 06/18/25 16:30 975 mg
Q8HPRN PRN Administration
mild pain
Albuterol 2 puff 05/21/25 16:31
Albuterol Hfa [90 Mcg/Dose] Inhaler INH
R Q4HPRN PRN
sob
Protocol
Amiodarone HCl 200 mg 05/22/25 08:00 05/22/25 08:34
Amiodarone 200 Mg Tablet PO 06/19/25 07:59 200 mg
DAILY OH Administration
Apixaban 2.5 mg 05/21/25 20:00 05/22/25 08:36
Apixaban (Eliquis) 2.5 Mg Tablet PO 06/18/25 19:59 2.5 mg
BID OH Administration
Aspirin 81 mg 05/22/25 08:00 05/22/25 08:37
Aspirin 81 Mg (Enteric Coated) Tablet PO 06/19/25 07:59 81 mg
DAILY OH Administration
Atorvastatin Calcium 20 mg 05/21/25 22:00 05/21/25 21:02
Atorvastatin (Lipitor) 20 Mg Tablet PO 06/18/25 21:59 20 mg
HS OH Administration
Baclofen 20 mg 05/21/25 16:31
Baclofen 10 Mg Tablet PO 06/18/25 16:30
BIDPRN PRN
spasms
Bumetanide 2 mg 05/22/25 08:00 05/22/25 08:37
Bumetanide 2 Mg Tablet PO 06/19/25 07:59 2 mg
DAILY OH Administration
Ceftriaxone Sodium 1,000 mg 05/22/25 10:00 05/22/25 09:32
Ceftriaxone 1000 Mg / 10 Ml Vial IV 1,000 mg
Q24H OH Administration
Cyanocobalamin 1,000 mcg 05/22/25 09:00 05/22/25 09:26
Cyanocobalamin (1000 Mcg/Ml) 1 Ml Vial IM 06/19/25 08:59 1,000 mcg
DAILY OH Administration
Diphenhydramine HCl 6.25 mg 05/22/25 08:48
Diphenhydramine 50 Mg/Ml 1 Ml Vial IV 06/19/25 08:47
Q4HPRN PRN
Allergy
Ferrous Sulfate 325 mg 05/21/25 16:31 05/22/25 08:34
Ferrous Sulfate 325 Mg Tablet PO 06/18/25 16:30 325 mg
TID OH Administration
Gabapentin 300 mg 05/21/25 20:00 05/21/25 21:02
Gabapentin 300 Mg Capsule PO 06/18/25 19:59 300 mg
On Hold: 05/22/25 08:00 BID OH Administration
Resume: 05/23/25 08:00
Insulin Glargine 8 units/ 0.08 mls @ 0 mls/hr 05/22/25 08:00 05/22/25 09:23
Device SC 06/19/25 07:59 Not Given
On Hold: 05/22/25 08:48 DAILY OH
As Directed
Insulin Aspart 14 units 05/22/25 08:00 05/22/25 09:24
Insulin Aspart (Novolog) 100 Units/Ml 3 Ml Flexpen SC 06/19/25 07:59 Not Given
On Hold: 05/22/25 08:48 DAILY OH
Insulin Aspart 6 units 05/21/25 18:00 05/21/25 18:11
Insulin Aspart (Novolog) 100 Units/Ml 3 Ml Flexpen SC 06/18/25 17:59 6 units
QPM OH Administration
Levothyroxine Sodium 150 mcg 05/22/25 06:00 05/22/25 05:15
Levothyroxine 150 Mcg Tablet PO 06/19/25 05:59 Not Given
DAILY @ 0600 OH
Metoprolol Succinate 25 mg 05/22/25 08:00 05/22/25 08:37
Metoprolol 25 Mg Extended Release Tablet PO 06/19/25 07:59 25 mg
DAILY OH Administration
Sennosides 17.2 mg 05/21/25 16:31
Sennosides (Senokot) 8.6 Mg Tablet PO 06/18/25 16:30
DAILYPRN PRN
constipation
Sertraline HCl 50 mg 05/22/25 08:00 05/22/25 08:37
Sertraline 50 Mg Tablet PO 06/19/25 07:59 50 mg
DAILY HO Administration
Sodium Chloride 0 flush 05/21/25 17:00 05/22/25 09:32
Sodium Chloride 0.9% (Flush) Syringe IV 06/18/25 16:59 2 flush
PER PROTOCOL OH Administration
Sterile Water 10 ml 05/22/25 10:00 05/22/25 09:32
Sterile Water For Injection 10 Ml Vial IV 06/19/25 09:59 10 ml
Q24H OH Administration
[2025-05-22 12:02] LABS: Glucose - Point of Care 182 mg/dl (70-99)
[2025-05-22] MEDS: DESENEX/MITRAZOL/ZEASORB 1 APPLIC TOPICAL ×2 (12:06→20:59)
[2025-05-22] MEDS: LIDOCAINE 4% PATCH 1 PATCH TOPICAL (16:18)
[2025-05-22 16:52] LABS: Glucose - Point of Care 152 mg/dl (70-99)
--- NOTE | 2025-05-22 17:18 | W.PN.HOSP.TC ---
Addendum entered and electronically signed by Galdino Quick MD 05/22/25 21:28:
Attending Addendum-I saw and evaluated the patient. I reviewed the resident�s note and agree with findings and plan as documented in the resident�s note. Sub: Patient much more alert today. Answering questions freely. 'I have no idea what happened
yesterday!' States he left shoulder and arm hurts. No denies urniary sxs fevers chills NV abd pain cough. Full 12 point ROS reviewed and negative except as documented. Exam- vitals reviewed in EMR GEN-NAD heart RRR no MRG lungs clear abd soft Neuro
AAO x 3 following commands,MS 5 Ext- LUE casted pain to abduction > 90 degrees Right AKA
Plan:
# CIMS
- resolved- unclear etiology
- from seizure?
- CT head no acute abnormality
- neuro input appreciated
- EEG- no seizure activity noted
- MRI cancelled by neuro
- per not too far from baseline
- r/o infection
- PT OT speech
# Recent left distal rad fx
- casted
- f/u with ortho as OP in 4 weeks
# Left Arm/shoulder Pain
- r/o DVT - neg
- check x ray arm/shoulder
- start pain control and Lidoderm patch
# H/O MS
- PT OT speech
- f/u neuro as OP
# IDDM
- cont home lantus/novolog dosing
- [id number]
- accuchecks and SSI
# Asymptomatic Bacteruria
- sxs resolved prior to abx
- hold on abx for now
- follow cx
# Paroxysmal A fib- cont amiodarone metoprolol and Eliquis
# Depression- cont sertraline
# CKD3b- avoid NT agents
# Hypothyroid- tsh mildly elevated - cont levothyroxine repeat in 4-6 weeks
# CHF- cont Lasix- no recent echo in system- t/c repeat during this hospitalization if warranted
# PN- cont gabapentin
# HLD- cont atorvastatin
DVTp- Eliquis
Code- Full d/w
Dispo Eventual DC to SNF likely
Time spent coordinating care, review of plan of care with resident, personally reviewed records in EMR, med rec, consults, notes, labs, radiology, d/w nursing � 51 mins
Original Note:
Today's Communication/Plan
-
Patient improving clinically compared to yesterday. Continue to monitor clinical status.
Monitor urine culture and urinary symptoms. Administer antibiotics if cultures positive or symptoms develop.
Follow imaging studies related to left arm pain.
Assessment / Plan
Assessment / Plan
#Shaking w/ confusion
- Etiology unclear�seizure vs CVA vs TME
- CTA head: NAIA
- EEG: No seizure activity.
- Trend CBC, BMP
- UA: Sayda, + LE, + WBCs, + bacteria (many)
- UCX Pending
- Patient given midazolam 2 mg IV, no clinical improvement
- Per neuro, at this time there is no clear benefit for antiseizure or antiplatelet medications. Symptoms likely due to metabolic abnormality.
- Per neuro, follow-up outpatient with patient's neurologist at [facility]
#Bacteriuria
- Patient clinically improving today prior to antibiotic administration
- Patient given 1 dose of ceftriaxone, however these were subsequently discontinued due to unlikely urinary infection based on UA alone
- Monitor urine culture and clinical status to determine if antibiotic treatment is necessary
- Patient reports no current urinary symptoms
- Urine culture: Pending
#Left arm pain
- Patient reports progressive, constant, nonradiating pain in her left arm from forearm shoulder
- Left arm ultrasound: No evidence of LUE DVT
- Left elbow x-ray: Pending
- Left shoulder x-ray: Pending
# CKD stage IIIb
-Trend BMP
# Hypertension
� C/W amlodipine
#IDDM
-Currently n.p.o. pending speech eval
� C/W home insulin regimen if speech clears for eating
# A-fib
-C/W apixaban, metoprolol
#HLD
� C/W atorvastatin
# Left distal radius fracture
-Currently in cast, monitor clinically
- Per Ortho, immobilization for an additional 4 weeks. Follow-up outpatient with Dr. Bee
#DVT PPx
� C/W apixaban
CODE STATUS: Full code
Anticipated Discharge: > 48 hours
Subjective/Interval History
-
Date of Service: May 22, 2025
Patient seen at the bedside on hospital day #2. Patient is feeling a little better overall today. However she does report progressive, constant, nonradiating left arm and shoulder pain.
Objective Data
-
Labs:
Laboratory Results
05/22/25
06:27
WBC 6.5
Hgb 12.8
Hct 39.9
Plt Count 166
Sodium 143
Potassium 3.7
Chloride 112 H
Carbon Dioxide 24
BUN 20 H
Creatinine 1.2 H
Glucose 136 H
Calcium 9.6
Vital Signs:
Vital Signs
Temp Pulse Resp BP Pulse Ox
98.5 F 53 12 158/73 94
05/22/25 15:15 05/22/25 15:15 05/22/25 15:15 05/22/25 15:15 05/22/25 15:15
I&O
05/21/25 05/22/25 05/23/25
06:59 06:59 06:59
Output Total 450 / 450 700 / 700
Balance -450 / -450 -700 / -700
Review of Systems
-
History Source: Patient
Constitutional: Denies Fever, Fatigue or Chills
EENT: Reports No Symptoms Reported
Respiratory: Denies Trouble Breathing
Cardiac: Denies Chest Pain, Palpitations or Syncope
Abdomen/GI: Denies Abdominal Pain
Genitourinary: Denies Dysuria, Frequency, Difficulty Voiding or Urgency
Musculoskeletal: Reports Other (Left arm pain from forearm to shoulder)
Neuro: Denies Headache, Weakness or Numbness
Physical Exam
-
General: No Apparent Distress and Comfortable
HEENT: Normocephalic and Atraumatic
Respiratory: Clear to Auscultation and Non Labored Respirations; Negative Wheezes or Crackles
Cardiac: Regular Rhythm and S1/S2; Negative Murmur, Rub or Gallop
GI: Soft, Nontender and Normal Bowel Sounds
Musculoskeletal: No Edema
Skin: Warm and Dry
Neuro: AO x 3
Psych: Calm
[2025-05-22] MEDS: NOVOLOG FLEXPEN SC (17:45)
[2025-05-22] MEDS: REMOVE LIDOCAINE PATCH 1 PATCH REMOVE (20:56)
[2025-05-22] MEDS: LIPITOR 20 MG PO (20:59)
[2025-05-22 21:11] LABS: Glucose - Point of Care 165 mg/dl (70-99)
[2025-05-23] VITALS (7 sets, daily range): BP systolic 97–144; BP diastolic 62–76; PULSE 59; O2SAT 94
[2025-05-23] MEDS: SYNTHROID 150 MCG PO (05:52)
[2025-05-23 07:37] LABS: Glucose - Point of Care 155 mg/dl (70-99)
[2025-05-23 07:54] LABS: Hematocrit 43.1 % (37.0-47.0); Hemoglobin 13.8 g/dL (12.0-16.0); Mean Corp Hgb Conc. 32.0 g/dL (33.0-37.0); Mean Corpuscular Volume 83.5 fL (81.0-99.0); Nucleated Red Blood Cells % 0 %; Platelet Count 187 10^3/uL (130-400); Red Cell Dist. Width 16.7 % (11.5-14.5)
[2025-05-23 08:27] LABS: Blood Urea Nitrogen 23 mg/dl (7-17); Calcium 9.6 mg/dl (8.4-10.2); Carbon Dioxide 25 mmol/L (22-30); Chloride 107 mmol/L (98-107); Estimated Creatinine Clearance 47 ml/min; Glucose 165 mg/dl (70-99); Potassium 3.7 mmol/L (3.5-5.1); Sodium 141 mmol/L (135-145); eGFR 45.07
[2025-05-23] MEDS: DESENEX/MITRAZOL/ZEASORB 1 APPLIC TOPICAL ×2 (08:52→21:32)
[2025-05-23] MEDS: TOPROL XL 25 MG PO (08:53)
[2025-05-23] MEDS: TYLENOL 975 MG PO (08:53)
[2025-05-23] MEDS: CYANOCOBALAMIN 1000 MCG IM (08:53)
[2025-05-23] MEDS: BUMEX 2 MG PO (08:54)
[2025-05-23] MEDS: NEURONTIN 300 MG PO ×2 (08:54→21:18)
[2025-05-23] MEDS: ELIQUIS 2.5 MG PO ×2 (08:54→21:19)
[2025-05-23] MEDS: LIDOCAINE 4% PATCH 1 PATCH TOPICAL (08:54)
[2025-05-23] MEDS: ASPIR LOW (ENTERIC COATED) 81 MG PO (08:54)
[2025-05-23] MEDS: ZOLOFT 50 MG PO (08:54)
[2025-05-23] MEDS: PACERONE 200 MG PO (08:54)
[2025-05-23] MEDS: FEOSOL 325 MG PO (08:55)
--- NOTE | 2025-05-23 10:06 | CM ---
Patient seen at bedside
stated brought in prosthesis
PT/OT to eval
states does not wish to go to rehab
states she just was dc from [facility] 05/16 d/t her wist fx
PLAN: TBD, PT/OT to eval
[2025-05-23 11:34] LABS: Glucose - Point of Care 187 mg/dl (70-99)
--- NOTE | 2025-05-23 11:55 | W.PN.HOSP.TC ---
Addendum entered and electronically signed by Galdino Quick MD 05/24/25 08:14:
05/23/25
Attending Addendum-I saw and evaluated the patient. I reviewed the resident�s note and agree with findings and plan as documented in the resident�s note. Sub: seen with present. reported as having episodes of asymptomatic bradycardia. Pain
in left shoulder and arm greatly improved. No denies urinary sxs fevers chills NV abd pain cough. Full 12 point ROS reviewed and negative except as documented. Exam- vitals reviewed in EMR GEN-NAD heart RRR no MRG lungs clear abd soft Neuro AAO x 3
following commands,MS 5/ Ext- LUE casted, arm abduction > 90 degrees improved Right AKA
Plan:
# CIMS
- resolved- unclear etiology
- from seizure?
- CT head no acute abnormality
- neuro input appreciated
- EEG- no seizure activity noted
- MRI cancelled by neuro
- per @ baseline
- PT OT speech
# Recent left distal rad fx
- casted, cont pain control
- f/u with ortho as OP in 4 weeks
# Left Arm/shoulder Pain
- resolving
- r/o DVT - US neg
- x ray arm/shoulder-neg for fx shows djd
- contpain control and Lidoderm patch
# H/O MS
- PT OT speech
- f/u neuro as OP
# IDDM
- cont home lantus/novolog dosing
- TNi5w-4.7
- accuchecks and SSI
# Asymptomatic Bacteruria
- sxs resolved prior to abx
- hold on abx for now
- follow cx
- tx based on sxs
# Paroxysmal A fib- cont amiodarone metoprolol and Eliquis
# Depression- cont sertraline
# CKD3b- avoid NT agents
# Hypothyroid- tsh mildly elevated - cont levothyroxine repeat in 4-6 weeks
# CHF- cont Lasix- no recent echo in system- t/c repeat during this hospitalization if warranted
# PN- cont gabapentin
# HLD- cont atorvastatin
DVTp- Eliquis
Code- Full d/w
Dispo-Patient refusing SNF adamant about going home. DC in am
Time spent coordinating care, review of plan of care with resident, personally reviewed records in EMR, med rec, consults, notes, labs, radiology, d/w nursing and POA � 52 mins
Original Note:
Today's Communication/Plan
-
Monitor clinical status.
Mental status and left arm pain improved from yesterday.
Metoprolol holding parameters for HR <60 bpm due to bradycardia.
Assessment / Plan
Assessment / Plan
#Shaking w/ confusion
- Etiology unclear�seizure vs CVA vs TME
- Patient clinically improving relative to presentation
- CTA head: NAIA
- EEG: No seizure activity.
- Trend CBC, BMP
- UA: Sayda, + LE, + WBCs, + bacteria (many)
- UCX: Gram-negative bacilli (asymptomatic)
- Patient given midazolam 2 mg IV, no clinical improvement
- Per neuro, at this time there is no clear benefit for antiseizure or antiplatelet medications. Symptoms likely due to metabolic abnormality.
- Per neuro, follow-up outpatient with patient's neurologist at [facility]
# Asymptomatic bacteriuria
- UA: Sayda, + LE, + WBCs, + bacteria (many)
- Urine culture: Gram-negative bacilli
- Patient reports no current urinary symptoms
- At this point, we will hold off on antibiotics as patient reports no urinary symptoms
#Left arm pain
- Patient reports no pain in her left arm today, significantly improved from yesterday
- Left arm ultrasound: No evidence of LUE DVT
- Left elbow x-ray: No evidence of arthritis or joint effusion in L elbow
- Left shoulder x-ray: Tendinosis of L rotator cuff, mild OA of L AC joint
#Bradycardia
- Patient's heart rate in the high 40s this morning
- Metoprolol holding parameters for HR <60 bpm
# CKD stage IIIb
-Trend BMP
# Hypertension
� C/W metoprolol with holding parameters for HR <60 bpm due to bradycardia
#IDDM
� C/W home insulin regimen
# A-fib
-C/W apixaban, metoprolol with holding parameters for HR <60 bpm due to bradycardia
#HLD
� C/W atorvastatin
# Left distal radius fracture
- Currently in cast, monitor clinically
- Per Ortho, immobilization for an additional 4 weeks. Follow-up outpatient with Dr. Bee
#DVT PPx
� C/W apixaban
Disposition:
-PT: Home Health
-OT: Home Health
-CM: Placing referral for [facility] tomorrow (05/24)
CODE STATUS: Full code
Anticipated Discharge: Within 24 hours
Subjective/Interval History
-
Date of Service: May 23, 2025
Patient seen at the bedside on hospital day #3. Nursing reports no acute events overnight. Patient states she is feeling 'not that great.' Patient states she has not been eating, as she does not have her normal appetite.
Objective Data
-
Labs:
Laboratory Results
05/23/25
07:10
WBC 8.2
Hgb 13.8
Hct 43.1
Plt Count 187
Sodium 141
Potassium 3.7
Chloride 107
Carbon Dioxide 25
BUN 23 H
Creatinine 1.3 H
Glucose 165 H
Calcium 9.6
Vital Signs:
Vital Signs
Temp Pulse Resp BP Pulse Ox
97.5 F 54 14 102/64 96
05/23/25 11:05 05/23/25 11:05 05/23/25 11:05 05/23/25 11:05 05/23/25 11:05
I&O
05/22/25 05/23/25 05/24/25
06:59 06:59 06:59
Intake Total 480 / 480
Output Total 450 / 450 700 / 700
Balance -450 / -450 -220 / -220
Review of Systems
-
History Source: Patient
Constitutional: Denies Fever, Fatigue or Chills
EENT: Reports No Symptoms Reported
Respiratory: Denies Cough or Trouble Breathing
Cardiac: Denies Chest Pain, Syncope or Other (Denies lightheadedness)
Abdomen/GI: Reports Nausea; Denies Abdominal Pain, Vomiting or Diarrhea
Genitourinary: Reports No Symptoms
Musculoskeletal: Denies Edema or Other (Denies left arm pain today, improved from yesterday)
Neuro: Denies Headache
Physical Exam
-
General: No Apparent Distress and Comfortable
HEENT: Normocephalic and Atraumatic
Respiratory: Clear to Auscultation and Non Labored Respirations; Negative Wheezes or Crackles
Cardiac: Regular Rhythm and Bradycardic
GI: Soft, Nontender and Normal Bowel Sounds
Skin: Warm and Dry
Neuro: AO x 3, No Motor Deficits and No Sensory Deficits
Psych: Calm
[2025-05-23 17:20] LABS: Glucose - Point of Care 179 mg/dl (70-99)
[2025-05-23] MEDS: NOVOLOG FLEXPEN 6 UNITS SC (17:47)
[2025-05-23 21:12] LABS: Glucose - Point of Care 159 mg/dl (70-99)
[2025-05-23] MEDS: LIPITOR 20 MG PO (21:18)
[2025-05-23] MEDS: REMOVE LIDOCAINE PATCH 1 PATCH REMOVE (21:20)
[2025-05-23] MEDS: MELATONIN 5 MG PO (21:36)
[2025-05-24] MEDS: SYNTHROID 150 MCG PO (05:55)
[2025-05-24 06:46] LABS: Hematocrit 41.1 % (37.0-47.0); Hemoglobin 13.7 g/dL (12.0-16.0); Mean Corp Hgb Conc. 33.3 g/dL (33.0-37.0); Mean Corpuscular Volume 81.9 fL (81.0-99.0); Nucleated Red Blood Cells % 0 %; Platelet Count 169 10^3/uL (130-400); Red Cell Dist. Width 16.2 % (11.5-14.5)
[2025-05-24 07:16] LABS: Blood Urea Nitrogen 29 mg/dl (7-17); Calcium 9.0 mg/dl (8.4-10.2); Carbon Dioxide 25 mmol/L (22-30); Chloride 106 mmol/L (98-107); Estimated Creatinine Clearance 47 ml/min; Glucose 158 mg/dl (70-99); Potassium 3.4 mmol/L (3.5-5.1); Sodium 138 mmol/L (135-145); eGFR 45.07
[2025-05-24] MEDS: LIDOCAINE 4% PATCH 1 PATCH TOPICAL (07:35)
[2025-05-24] MEDS: ZOLOFT 50 MG PO (07:35)
[2025-05-24] MEDS: BUMEX 2 MG PO (07:35)
[2025-05-24] MEDS: ASPIR LOW (ENTERIC COATED) 81 MG PO (07:35)
[2025-05-24] MEDS: NEURONTIN 300 MG PO (07:36)
[2025-05-24] MEDS: CYANOCOBALAMIN 1000 MCG IM (07:36)
[2025-05-24] MEDS: PACERONE 200 MG PO (07:36)
[2025-05-24] MEDS: TOPROL XL PO (07:37)
[2025-05-24] MEDS: DESENEX/MITRAZOL/ZEASORB 1 APPLIC TOPICAL (07:37)
[2025-05-24] MEDS: ELIQUIS 2.5 MG PO (07:37)
[2025-05-24 07:47] VITALS: BP 117/66
[2025-05-24 07:56] LABS: Glucose - Point of Care 155 mg/dl (70-99)
--- NOTE | 2025-05-24 10:16 | CM ---
Patient seen at bedside
PT rec Home Health
CM consult completed for VN
patient declines VN, states she does outpatient therapy
IMM explained & signed
PLAN: Home, declines VN
to transport
[2025-05-24] MEDS: KCL 40 MEQ PO (10:42)
[2025-05-24 12:00] LABS: Glucose - Point of Care 213 mg/dl (70-99)
[2025-05-24] MEDS: KCL 20 MEQ PO (13:39)
[2025-05-24 15:41] VITALS: BP 94/66
--- NOTE | 2025-05-24 16:33 | W.PN.HOSP.TC ---
Addendum entered and electronically signed by Galdino Quick MD 05/24/25 22:33:
Attending Addendum-I saw and evaluated the patient. I reviewed the resident�s note and agree with findings and plan as documented in the resident�s note. Sub: seen with present. 'Im going home today' Pain in left shoulder and arm greatly
improved. No denies urinary sxs fevers chills NV abd pain cough. Full 12 point ROS reviewed and negative except as documented. Exam- vitals reviewed in EMR GEN-NAD heart RRR no MRG lungs clear abd soft Neuro AAO x 3 following commands,MS 5/ Ext-
LUE casted, arm abduction > 90 degrees improved Right AKA
Plan:
# TME
- resolved- unclear etiology
- CT head no acute abnormality
- neuro input appreciated
- EEG- no seizure activity noted
- MRI cancelled by neuro
- per @ baseline
# Recent left distal rad fx
- casted, cont pain control
- f/u with ortho as OP in 4 weeks
# Left Arm/shoulder Pain
- resolving
- r/o DVT - US neg
- x ray arm/shoulder-neg for fx shows djd
- cont pain control and Lidoderm patch
# H/O MS
- PT OT speech
- f/u neuro as OP
# IDDM
- cont home lantus/novolog dosing
- JPe8d-9.7
- accuchecks and SSI
# Asymptomatic Bacteruria
- sxs resolved prior to abx
- hold off abx
- tx based on sxs
# Paroxysmal A fib- cont amiodarone metoprolol and Eliquis
# Depression- cont sertraline
# CKD3b- avoid NT agents
# Hypothyroid- tsh mildly elevated - cont levothyroxine repeat in 4-6 weeks
# CHF- cont Lasix- no recent echo in system- t/c repeat during this hospitalization if warranted
# PN- cont gabapentin
# HLD- cont atorvastatin
DVTp- Eliquis
Code- Full d/w
Dispo-Patient refusing SNF adamant about going home. DC home with
Time spent coordinating care, DC planning, review of DC plan of care with resident, transition of care, review of records, med rec/scripts sent electronically, consults, notes, d/w consultants, nursing, family, and CM� 32 mins >50% of this time was
devoted to counseling and coordination of care
Original Note:
Today's Communication/Plan
-
Patient's metoprolol dosage reduced from 25 mg p.o. daily to 12.5 mg p.o. daily due to bradycardia.
Monitor patient clinically. Mental status and arm pain improved. Plan to discharge to home later today.
Assessment / Plan
Assessment / Plan
# Toxic metabolic encephalopathy
-Etiology unclear
- Patient clinically improving relative to presentation
- CTA head: NAIA
- EEG: No seizure activity.
- Trend CBC, BMP
- UA: Sayda, + LE, + WBCs, + bacteria (many)
- UCX: Gram-negative bacilli (asymptomatic)
- Per neuro, no clear benefit for antiseizure or antiplatelet medications. Symptoms likely due to metabolic abnormality.
- Per neuro, follow-up outpatient with patient's neurologist at [facility]
# Asymptomatic bacteriuria
- UA: Sayda, + LE, + WBCs, + bacteria (many)
- Urine culture: Gram-negative bacilli, Enterococcus
- Patient reports no current urinary symptoms
- At this point, we will hold off on antibiotics in the absence of urinary symptoms
#Left arm pain
- Resolved, patient reports no pain in her left arm today
- Left arm ultrasound: No evidence of LUE DVT
- Left elbow x-ray: No evidence of arthritis or joint effusion in L elbow
- Left shoulder x-ray: Tendinosis of L rotator cuff, mild OA of L AC joint
#Bradycardia
- Patient's heart rate in the high 40s this morning
- Metoprolol dosage decreased from 25 mg p.o. daily to 12.5 mg p.o. daily
- Metoprolol holding parameters for HR <60 bpm
#Hypokalemia
- K 3.4 this morning
- Repeated with 60 mEq KCl
- Follow-up BMP in 1 week and follow-up with PCP thereafter
# CKD stage IIIb
-Creatinine stable
-Trend BMP
# Hypertension
� C/W metoprolol with holding parameters for HR <60 bpm due to bradycardia
#IDDM
� C/W home insulin regimen
# A-fib
-C/W apixaban, metoprolol with holding parameters for HR <60 bpm due to bradycardia
#HLD
� C/W atorvastatin
# Left distal radius fracture
- Currently in cast, monitor clinically
- Per Ortho, immobilization for an additional 4 weeks. Follow-up outpatient with Dr. Bee
#DVT PPx
� C/W apixaban
Disposition:
-PT: Home Health
-OT: Home Health
-CM: Home; patient refused visiting nurse
CODE STATUS: Full code
Anticipated Discharge: Today
Subjective/Interval History
-
Date of Service: May 24, 2025
Patient seen at the bedside Hospital day #4. Nursing reports SANDRO patient states she is feeling 'better'. The pain in her left arm has improved since yesterday. She had a good night sleep no current complaints.
Objective Data
-
Labs:
Laboratory Results
05/24/25
06:08
WBC 7.3
Hgb 13.7
Hct 41.1
Plt Count 169
Sodium 138
Potassium 3.4 L
Chloride 106
Carbon Dioxide 25
BUN 29 H
Creatinine 1.3 H
Glucose 158 H
Calcium 9.0
Vital Signs:
Vital Signs
Temp Pulse Resp BP Pulse Ox
97 F 63 16 94/66 97
05/24/25 15:41 05/24/25 15:41 05/24/25 15:41 05/24/25 15:41 05/24/25 15:41
I&O
05/23/25 05/24/25 05/25/25
06:59 06:59 06:59
Intake Total 480 / 480 480 / 480
Output Total 700 / 700
Balance -220 / -220 480 / 480
Review of Systems
-
History Source: Patient
Constitutional: Denies Fever, Fatigue or Chills
EENT: Reports No Symptoms Reported
Respiratory: Denies Cough or Trouble Breathing
Cardiac: Denies Chest Pain, Palpitations or Syncope
Abdomen/GI: Denies Abdominal Pain, Nausea, Vomiting or Diarrhea
Genitourinary: Denies Dysuria, Frequency, Difficulty Voiding or Urgency
Musculoskeletal: Reports Other (Left arm pain improved since yesterday)
Skin: Reports No Symptoms
Neuro: Denies Headache, Weakness or Numbness
Physical Exam
-
General: No Apparent Distress, Comfortable and Conversant (Improved since yesterday)
HEENT: Normocephalic and Atraumatic
Respiratory: Clear to Auscultation and Non Labored Respirations; Negative Wheezes or Crackles
Cardiac: Regular Rhythm, S1/S2 and Bradycardic
GI: Soft, Nontender and Normal Bowel Sounds
Musculoskeletal: No Cyanosis and No Edema
Skin: Warm and Dry
Neuro: AO x 3, No Motor Deficits and No Sensory Deficits
--- NOTE | 2025-05-25 15:21 | W.DCSUMMARY ---
Addendum entered and electronically signed by Galdino Quick MD 05/25/25 19:10:
Read, reviewed, and agree.
Aristeo Quick MD
Original Note:
Documented by User: Chepe Choi MD, Resident 05/25/25 16:23
Discharge Summary
Discharge Data
Date of Admission: 05/21/25
Date of Discharge: 05/24/25
-
Pending Results: No
Hospital Course
Discharging Physician : Chepe Choi MD; Galdino Quick MD
Disposition : Home
Primary care physician : Tera Perez DO
Principal Discharge diagnosis : Toxic metabolic encephalopathy; left arm/shoulder pain; asymptomatic bacteriuria; bradycardia
Chronic Discharge diagnosis : Left distal radius fracture; multiple sclerosis; insulin-dependent diabetes mellitus; paroxysmal atrial fibrillation; depression; chronic kidney disease stage IIIb; hypothyroidism; congestive heart failure; peripheral
neuropathy; hyperlipidemia
Hospital Course : �
Ms. Toribio presented to the [facility] emergency department via EMS on May 21, 2025 after a shaking episode. Patient was found by while shaking in bed and slurring her words. Patient's described the shaking is
'rolling [id number]'. According to the , the patient was confused and 'sleepy' both before and after the shaking episode. In the ED, the patient was awake and oriented to person only. She was also bradycardic and hypotensive. Given
her altered state, minimal verbal output, minimal movement and blank stare, the patient was administered midazolam 2 mg IV for suspected seizure activity without significant improvement of the patient's mentation. The patient underwent a head CT,
which showed no evidence of acute intracranial abnormality. The patient did not require any antiplatelet or any additional antiseizure medications. The patient underwent an EEG, which lacked seizure activity and was suggestive of a metabolic
abnormality. The patient underwent a urinalysis and urine culture as part of the workup for her altered mental status and suspected metabolic abnormality. The patient's urine culture did grow Klebsiella pneumonia and Enterococcus faecalis, but the
patient remained without any urinary symptoms. The patient was administered 1 dose of ceftriaxone for the suspected UTI, but the antibiotics were subsequently discontinued, as the patient was asymptomatic and had improving mentation prior to the
administration of the antibiotic. The patient also experienced left arm pain during her hospital course, which was evaluated with an upper extremity venous ultrasound, elbow x-ray, and shoulder x-ray. None of the studies revealed an acute cause of
the left arm pain. The left arm pain subsided without intervention over the following days. Patient also experienced intermittent bradycardia into the 40s, which was managed with a decrease in her metoprolol dose from 25 p.o. daily to 12.5 mg p.o.
daily. A specific etiology for the patient's toxic metabolic encephalopathy was not identified during hospital stay. The patient improved clinically with supportive care, with greatly improved mental status over the course of 3 days. The patient
was cleared medical and discharged home.
In addition to the above, the patient's chronic conditions were managed as follows:
Left distal radius fracture: Arm is casted and patient received pain control as needed. Follow-up with orthopedics (Dr. Bee) in 4 weeks.
Multiple sclerosis: Patient was evaluated by physical therapy, occupational therapy, and speech therapy. Follow-up with patient's neurologist at [facility] as outpatient.
Insulin-dependent diabetes mellitus: Managed with home medications of Lantus and NovoLog, as well as insulin sliding scale with Accu-Cheks.
Paroxysmal atrial fibrillation: Managed with home medications of amiodarone, apixaban, and metoprolol. As mentioned above, patient's metoprolol dose was decreased from 25 p.o. daily to 12.5 mg p.o. daily due to bradycardia into the 40s.
Depression: Managed with home medication of sertraline.
Chronic kidney disease stage IIIb: Avoidance of nephrotoxic medications. Patient's kidney function remained stable during the hospital course.
Hypothyroidism: Managed with home medication of levothyroxine. Mild TSH elevation (6.64). Follow-up with PCP after repeat TSH in 4 to 6 weeks.
Congestive heart failure: Managed with Lasix. No clinical signs or symptoms of heart failure.
Peripheral neuropathy: Managed with home medication of gabapentin.
Hyperlipidemia: Managed with home medication of atorvastatin.
Important imaging findings : �
Head CT - Impression:
1. No evidence of acute intracranial abnormality.
Left upper extremity venous ultrasound - Impression:
1. No sonographic evidence for LEFT upper extremity deep venous thrombosis.
Left Elbow X-Ray - Impression:
1. Tiny medial and lateral epicondylar enthesophytes.
2. No radiographic evidence for arthritis or joint effusion in the left elbow.
3. Diffuse bone demineralization.
Left shoulder x-ray - Impression:
1. Chronic insertional tendinosis of the left rotator cuff.
2. Mild osteoarthritis of the left acromioclavicular joint.
3. Diffuse bone demineralization.
4. Severe elevation of the left hemidiaphragm.
Procedure findings : N/A
Discharge Plan
-
Patient Disposition: Home (Routine Discharge)
Discharge Diagnosis/Procedures: Toxic Metabolic Encephalopathy
Condition: Fair
Diet: As tolerated and Diabetic, Carb Controlled
Activity: As tolerated
Driving Restrictions: As prior to admission
Bathing Restrictions: None
Blood Work: Follow-up BMP in 1 week
Activity Restrictions/Additional Instructions:
Follow-up with primary care provider in 1 to 2 weeks following BMP
Follow-up with patient's neurologist at [facility]
Follow-up outpatient with orthopedic (Dr. Bee) for reassessment and removal of cast following left distal radius fracture
Referrals:
Tera Perez DO [Family Provider, Internal Medicine]
Prescriptions:
New
metoprolol succinate 25 mg Tablet Extended Release 24 Hr
12.5 mg PO DAILY 90 Days Qty: 45 2RF
Continued
baclofen 10 MG tablet
20 mg PO BIDPRN PRN (Reason: spasms)
levothyroxine 150 MCG tablet
150 mcg PO DAILY
sertraline 50 MG tablet
50 mg PO DAILY
aspirin 81 MG tablet,delayed release (DR/EC)
81 mg PO DAILY
gabapentin 300 MG capsule
300 mg PO BID
sennosides [senna] 8.6 mg Tablet
17.2 mg PO DAILYPRN PRN (Reason: constipation)
acetaminophen [Tylenol] 325 mg Tablet
975 mg PO Q8HPRN PRN (Reason: mild pain)
atorvastatin [Lipitor] 20 mg Tablet
20 mg PO HS
bumetanide 2 mg Tablet
2 mg PO DAILY
amiodarone 200 mg Tablet
200 mg PO DAILY
ferrous sulfate 325 mg (65 mg iron) Tablet
325 mg PO TID
albuterol sulfate 90 mcg/actuation Hfa Aerosol Inhaler
2 puff INHALATION R Q4HPRN PRN (Reason: sob)
insulin lispro [Humalog KwikPen Insulin] 100 unit/mL Insulin Pen
12 unit SC QPM
insulin lispro [Humalog KwikPen Insulin] 100 unit/mL Insulin Pen
14 unit SC DAILY
cholecalciferol (vitamin D3) [Vitamin D3] 25 mcg (1,000 unit) Tablet
25 mcg PO DAILY
insulin glargine [Lantus Solostar U-100 Insulin] 100 unit/mL (3 mL) Insulin Pen
8 unit SC DAILY
Eliquis 2.5 mg Tablet
2.5 mg PO BID
Discontinued
metoprolol succinate [Toprol XL] 25 mg Tablet Extended Release 24 Hr
25 mg PO DAILY
Discharge Orders:
Discharge Patient (As Directed); Ordered 05/24/25
Ordered By: Diaz Diaz
Discharge Date and Time
Discharge Date/Time: 05/24/25 19:56
Print Language: PORTUGUESE

Documented by User: Galdino Quick MD 05/25/25 19:09
Discharge Summary
Discharge Data
Date of Admission: 05/21/25
Date of Discharge: 05/25/25
Discharge Plan
-
Patient Disposition: Home (Routine Discharge)
Discharge Diagnosis/Procedures: Toxic Metabolic Encephalopathy
Condition: Fair
Diet: As tolerated and Diabetic, Carb Controlled
Activity: As tolerated
Driving Restrictions: As prior to admission
Bathing Restrictions: None
Blood Work: Follow-up BMP in 1 week
Activity Restrictions/Additional Instructions:
Follow-up with primary care provider in 1 to 2 weeks following BMP
Follow-up with patient's neurologist at [facility]
Follow-up outpatient with orthopedic (Dr. Bee) for reassessment and removal of cast following left distal radius fracture
Referrals:
Tera Perez DO [Family Provider, Internal Medicine]
Prescriptions:
New
metoprolol succinate 25 mg Tablet Extended Release 24 Hr
12.5 mg PO DAILY 90 Days Qty: 45 2RF
Continued
baclofen 10 MG tablet
20 mg PO BIDPRN PRN (Reason: spasms)
levothyroxine 150 MCG tablet
150 mcg PO DAILY
sertraline 50 MG tablet
50 mg PO DAILY
aspirin 81 MG tablet,delayed release (/EC)
81 mg PO DAILY
gabapentin 300 MG capsule
300 mg PO BID
sennosides [senna] 8.6 mg Tablet
17.2 mg PO DAILYPRN PRN (Reason: constipation)
acetaminophen [Tylenol] 325 mg Tablet
975 mg PO Q8HPRN PRN (Reason: mild pain)
atorvastatin [Lipitor] 20 mg Tablet
20 mg PO HS
bumetanide 2 mg Tablet
2 mg PO DAILY
amiodarone 200 mg Tablet
200 mg PO DAILY
ferrous sulfate 325 mg (65 mg iron) Tablet
325 mg PO TID
albuterol sulfate 90 mcg/actuation Hfa Aerosol Inhaler
2 puff INHALATION R Q4HPRN PRN (Reason: sob)
insulin lispro [Humalog KwikPen Insulin] 100 unit/mL Insulin Pen
12 unit SC QPM
insulin lispro [Humalog KwikPen Insulin] 100 unit/mL Insulin Pen
14 unit SC DAILY
cholecalciferol (vitamin D3) [Vitamin D3] 25 mcg (1,000 unit) Tablet
25 mcg PO DAILY
insulin glargine [Lantus Solostar U-100 Insulin] 100 unit/mL (3 mL) Insulin Pen
8 unit SC DAILY
Eliquis 2.5 mg Tablet
2.5 mg PO BID
Discontinued
metoprolol succinate [Toprol XL] 25 mg Tablet Extended Release 24 Hr
25 mg PO DAILY
Discharge Orders:
Discharge Patient (As Directed); Ordered 05/24/25
Ordered By: Diaz Diaz
Discharge Date and Time
Discharge Date/Time: 05/24/25 19:56
Print Language: PORTUGUESE
== END 2025-05-24 19:56 | disposition home or self-care (01) | DRG 92 ==
LOC: 3 WEST ACU 15:42
PROVIDERS: ADMITTING PHYSICIAN Family Medicine; CONSULT PHYSICIAN Psychiatry & Neurology Neurology; EMERGENCY PHYSICIAN Emergency Medicine; FAMILY PHYSICIAN Internal Medicine
DX: G92.8 Other toxic encephalopathy (principal); E11.52 Type 2 diabetes mellitus with diabetic peripheral angiopathy with gangrene; I13.0 Hypertensive heart and chronic kidney disease with heart failure and stage 1 through stage 4 chronic kidney disease, or unspecified chronic kidney disease; N18.32 Chronic kidney disease, stage 3b; E11.22 Type 2 diabetes mellitus with diabetic chronic kidney disease; Z79.4 Long term (current) use of insulin; E11.40 Type 2 diabetes mellitus with diabetic neuropathy, unspecified; F32.A Depression, unspecified; I48.0 Paroxysmal atrial fibrillation; E03.9 Hypothyroidism, unspecified; G35 Multiple sclerosis; R56.9 Unspecified convulsions
CPT/HCPCS: 51798; 70450; 73030; 73070; 80048; 80053; 80061; 81003; 81015; 82140; 82306; 82607; 82962; 83036; 84439; 84443; 84484; 85025; 85610; 85730; 87077; 87086; 87186; 93005; 93971; 95816; 96372; 97162; 97166; 99285

== ENCOUNTER 2025-06-13 19:49 | Inpatient (IN) | payer MEDICARE, SELFPAY ==
[2025-06-13] VITALS (9 sets, daily range): BP systolic 76–156; BP diastolic 46–105; BMI 32.3
[2025-06-13 15:27] LABS: Glucose - Point of Care 177 mg/dl (70-99)
--- NOTE | 2025-06-13 15:48 | ED.GENMED ---
History of Present Illness
<SCOT Walton Last Filed: 06/14/25 08:42>
General
Chief Complaint: Change in Mental Status
Source: patient
Exam Limitations: none
Time Seen by Provider: 06/13/25 15:39
History of Present Illness
History of Present Illness:
65-year-old female brought here by from home with generalized weakness and increased confusion. She was admitted 2 weeks ago for toxic metabolic encephalopathy. She has known bradycardia. Patient is a difficult historian but she does feel
short of breath. She denies specific pain. She is anticoagulated secondary to history of atrial fibrillation. She is an insulin-dependent diabetic.
Past History
<SCOT Walton Last Filed: 06/14/25 08:42>
Past History
ED Past Medical History: CVA, HTN, Hypercholesterolemia, NIDDM and Other (brain lesion, Fournge's gangrene)
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
Social History
Tobacco: Non-smoker
Alcohol: None
Drug: None
Personal:
Living: with family
Employment: Other
Family History
Family History: Other
Phy Exam
<SCOT Walton Last Filed: 06/14/25 08:42>
Physical Exam
Physical Exam:
General: Chronically ill-appearing female no acute respiratory distress
HEENT: Normocephalic mucosa dry neck is supple
Heart: Regular rate and rhythm
Lungs: Slight inspiratory wheeze
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
Neurologic exam: Alert and oriented to person and place no facial asymmetry
Course
<SCOT Walton Last Filed: 06/14/25 08:42>
Orders/Labs/Results
Orders:
Orders
06/13/25 Dinner
1800 calorie (15 carb) Diabetic
At Your Request: Non-Participating
06/13/25 15:31
CT Head W/o Iv Contrast Urgent
Comment:
Reason For Exam: confusion
06/13/25 15:42
Electrocardiogram (*1) Urgent
Reason for Study: Shortness of Breath
EKG- Treatment ONCE
06/13/25 15:43
O2 Therapy [RESP] Urgent
Titrate/Wean O2 to maintain O2 sat greater than (%): 94
06/13/25 15:52
CR Chest - 2 Views Urgent
Comment:
Reason For Exam: sob
06/13/25 15:53
Complete Blood Count/With Diff Urgent
Comprehensive Metabolic Panel Urgent
NT-proBNP Urgent
Troponin I Urgent
0.9% Sodium Chloride 1000 ml [Nss] 1,000 ml IV BOLUS
06/13/25 16:15
Lactic Acid Q4H
Comment: CANCEL 2nd LACTIC ACID IF 1st LACTIC ACID IS LESS THAN 2
Blood Culture Q30M
LIZZY Source: Blood/Venous
Specimen Description:
Blood Culture Q30M
LIZZY Source: Blood/Venous
Specimen Description:
06/13/25 16:25
Urine Culture Reflexed from UA [Urinalysis Reflex To Culture] Urgent
Date Specimen was Collected: 06/13/25
Time Specimen was Collected: 15:30
Urine Microscopic Reflex Cult Urgent
Urine Culture Urgent
LIZZY Source: U
Specimen Description:
Date Specimen was Collected: 06/13/25
Time Specimen was Collected: 15:30
06/13/25 16:58
Venous Blood Gas Urgent
%Oxygen/Room Air: 93
06/13/25 18:23
0.9% Sodium Chloride 500 ml [Nss] 500 ml IV BOLUS
CefTRIAXone [Rocephin] 1,000 mg IV NOW STA
06/13/25 19:14
Admit/Transfer Patient As Directed
Co-Sign Provider:
Level of Care: Inpatient admission
Assign to:: IMU- Intermediate Care
Physician / Group: Kana
Diagnosis: Altered mental status
Reason for Hospitalization: Altered mental status
Expected length of stay greater than two midnights?: Yes
ELOS- Estimated Length of Stay in days: 2
I certify the patient meets the requirements for IP care: Yes
PRN Pain Medication Management As Directed
May give lesser potent ordered pain med per pt: Yes
preference::
Protocol:: Medication orders for pain may be administered in a
manner that supports deferring to patient preference
when the pt is:
- Requesting an ordered lesser potent pain medication.
Least to most potent pain medications are defined
as: acetaminophen < NSAID < tramadol < opioids
(morphine, oxycodone, hydromorphone).
- Requesting a lesser dose of the same medication IF
ORDERED.
- Requesting a less intrusive route of administration
if both routes are prescribed by the provider (PO <
IV).
06/13/25 19:16
Code Status As Directed
Resuscitation Status: Full Code
06/13/25 21:37
Urine Creatinine Routine
Date Specimen was Collected: 06/13/25
Time Specimen was Collected: 23:17
Urine Sodium Routine
Date Specimen was Collected: 06/13/25
Time Specimen was Collected: 23:17
Acetaminophen [Tylenol] 975 mg PO Q8HPRN PRN mild pain
Albuterol [ProAIR HFA INHALER] 2 puff INH R Q4HPRN PRN sob
Apixaban [Eliquis] 2.5 mg PO BID
Bisacodyl [Dulcolax] 10 mg RECTAL [id number] PRN
Docusate W/Senna [Senokot-S] 1 tablet PO BIDPRN PRN
Gabapentin [Neurontin] 300 mg PO BID
NORepinephrine 4 MG/250 ML [Levophed] 4 mg in 250 ml IV PER PROTOCOL
Initial dose in mcg/min, then titrate:: 2
Titrate to keep:: MAP > 65 mmHg
Titrate by mcg/min:: 1-2 mcg/min
Frequency of titrations (minutes):: 5
Maximum dose in ICU in mcg/min:: 30
Maximum dose in IMU in mcg/min:: 8
Maximum dose in IVU in mcg/min:: 4
Begin to taper infusion when:: Remained at goal for 4hrs
Taper by mcg/min:: 1-2 mcg/min
Frequency of taper (minutes) if patient maintains goal:: 30
Taper to off?: Yes
If infusion off & no longer maintaining goal:: Contact Provider
Ondansetron Injectable [Zofran] 4 mg IV Q6HPRN PRN
Polyethylene Glycol Powder [Miralax] 17 grams PO DAILYPRN PRN
Sennosides [Senokot] 17.2 mg PO DAILYPRN PRN constipation
06/13/25 21:37
CARDIOLOGY CONSULT Routine
Consulting Provider: Edward Evans
Was physician already notified: Yes
Reason for consult: bradycardia, afib on amio
VTE Contraindication Routine
VTE Mechanical Device Contraindication: Medical Contraindication
Pharmocologic Contraindication: Medical Contraindication
Activity As Directed
Activity Level: With Assistance
Bedside Glucose Monitoring As Directed
Frequency: AC&HS
Bladder Scan As Directed
Follow Bladder Retention/Intermittent Cath Algorithm?: Yes
PRN if no void in __ hours: 6
Frequency: Per Retention Algorithm
If Bladder Scan Result >: 400
then:: Straight cath
Straight Cath As Directed
Frequency: Per Retention Algorithm
Additional Instructions: straight cath as needed per acute urinary retention algorithm for 24 hrs
Additional Instructions: for bladder scan greater than 400 mL
Vital Signs As Directed
Frequency: Per unit guidelines
Weight As Directed
Frequency: Daily
Oxygen Therapy [O2 Therapy] [RESP] Routine
Nasal Cannula Liter Flow: 2 LPM
Titrate/Wean O2 to maintain O2 sat greater than (%): 95
Pulse Ox/cont/shift [RESP] Routine
Quantity: 1
06/13/25 22:00
Atorvastatin [Lipitor] 20 mg PO HS
Ferrous Sulfate [Feosol] 325 mg PO TID
06/14/25 04:42
Basic Metabolic Panel IN AM
Cardiovascular Evaluation IN AM
Complete Blood Count/No Diff IN AM
Magnesium IN AM
TSH Reflex To Free T4 IN AM
Troponin I IN AM
06/14/25 06:00
Levothyroxine [Synthroid] 150 mcg PO DAILY @ 0600
06/14/25 07:30
Insulin Aspart Corrective Low [Novolog Flexpen-Low Resistance] See Protocol SC AC
06/14/25 08:00
Amiodarone [Pacerone] 200 mg PO DAILY
Aspirin Low Dose EC [Aspir Low (Enteric Coated)] 81 mg PO DAILY
Sertraline HCl [Zoloft] 50 mg PO DAILY
insulin glargine [Lantus Solostar U-100 Insulin] 8 unit SC DAILY
Abnormal Lab Results
06/13/25 06/13/25 06/13/25
15:25 15:53 16:25
Hgb 11.7 L g/dL
(12.0-16.0)
Hct 36.9 L %
(37.0-47.0)
MCHC 31.7 L g/dL
(33.0-37.0)
RDW 17.9 H %
(11.5-14.5)
Neutrophils % 76.2 H %
(42.2-75.2)
Lymphocytes % 14.6 L %
(20.5-51.1)
VBG pCO2
VBG pO2
VBG HCO3
Chloride 108 H mmol/L
(98-107)
BUN 28 H mg/dl
(7-17)
Creatinine 1.7 H mg/dL
(0.6-1.0)
Glucose 181 H mg/dl
(70-99)
Leukocyte Esterase Rfl 2+ A
(Negative)
Urine WBC (Reflex) 26-30 A /HPF
(0-5)
Urine Bacteria (Reflex) Moderate A
(Negative)
POC Glucose 177 H mg/dl
(70-99)
06/13/25
16:58
Hgb
Hct
MCHC
RDW
Neutrophils %
Lymphocytes %
VBG pCO2 49 H mmHg
(35-48)
VBG pO2 164 H mmHg
(30-50)
VBG HCO3 29.0 H mmol/L
(22-27)
Chloride
BUN
Creatinine
Glucose
Leukocyte Esterase Rfl
Urine WBC (Reflex)
Urine Bacteria (Reflex)
POC Glucose
06/13/25 15:53
06/13/25 15:53
Vital Signs
Initial and Last Documented VS:
Initial Vital Signs
Temp Pulse Resp BP Pulse Ox
98.4 F 55 16 76/56 93
06/13/25 15:19 06/13/25 15:19 06/13/25 15:19 06/13/25 15:19 06/13/25 15:19
Last Documented Vital Signs
Temp Pulse Resp BP Pulse Ox
98.0 F 49 13 116/74 94
06/14/25 06:39 06/14/25 08:30 06/14/25 08:30 06/14/25 08:00 06/14/25 08:30
<Dalton Britt MD - Last Filed: 06/13/25 18:27>
Orders/Labs/Results
Orders:
Orders
06/13/25 Dinner
1800 calorie (15 carb) Diabetic
At Your Request: Non-Participating
06/13/25 15:31
CT Head W/o Iv Contrast Urgent
Comment:
Reason For Exam: confusion
06/13/25 15:42
Electrocardiogram (*1) Urgent
Reason for Study: Shortness of Breath
EKG- Treatment ONCE
06/13/25 15:43
O2 Therapy [RESP] Urgent
Titrate/Wean O2 to maintain O2 sat greater than (%): 94
06/13/25 15:52
CR Chest - 2 Views Urgent
Comment:
Reason For Exam: sob
06/13/25 15:53
Complete Blood Count/With Diff Urgent
Comprehensive Metabolic Panel Urgent
NT-proBNP Urgent
Troponin I Urgent
0.9% Sodium Chloride 1000 ml [Nss] 1,000 ml IV BOLUS
06/13/25 16:15
Lactic Acid Q4H
Comment: CANCEL 2nd LACTIC ACID IF 1st LACTIC ACID IS LESS THAN 2
Blood Culture Q30M
LIZZY Source: Blood/Venous
Specimen Description:
Blood Culture Q30M
LIZZY Source: Blood/Venous
Specimen Description:
06/13/25 16:25
Urine Culture Reflexed from UA [Urinalysis Reflex To Culture] Urgent
Date Specimen was Collected: 06/13/25
Time Specimen was Collected: 15:30
Urine Microscopic Reflex Cult Urgent
Urine Culture Urgent
LIZZY Source: U
Specimen Description:
Date Specimen was Collected: 06/13/25
Time Specimen was Collected: 15:30
06/13/25 16:58
Venous Blood Gas Urgent
%Oxygen/Room Air: 93
06/13/25 18:23
0.9% Sodium Chloride 500 ml [Nss] 500 ml IV BOLUS
CefTRIAXone [Rocephin] 1,000 mg IV NOW STA
06/13/25 19:14
Admit/Transfer Patient As Directed
Co-Sign Provider:
Level of Care: Inpatient admission
Assign to:: IMU- Intermediate Care
Physician / Group: Kana
Diagnosis: Altered mental status
Reason for Hospitalization: Altered mental status
Expected length of stay greater than two midnights?: Yes
ELOS- Estimated Length of Stay in days: 2
I certify the patient meets the requirements for IP care: Yes
PRN Pain Medication Management As Directed
May give lesser potent ordered pain med per pt: Yes
preference::
Protocol:: Medication orders for pain may be administered in a
manner that supports deferring to patient preference
when the pt is:
- Requesting an ordered lesser potent pain medication.
Least to most potent pain medications are defined
as: acetaminophen < NSAID < tramadol < opioids
(morphine, oxycodone, hydromorphone).
- Requesting a lesser dose of the same medication IF
ORDERED.
- Requesting a less intrusive route of administration
if both routes are prescribed by the provider (PO <
IV).
06/13/25 19:16
Code Status As Directed
Resuscitation Status: Full Code
06/13/25 21:37
Urine Creatinine Routine
Date Specimen was Collected: 06/13/25
Time Specimen was Collected: 23:17
Urine Sodium Routine
Date Specimen was Collected: 06/13/25
Time Specimen was Collected: 23:17
Acetaminophen [Tylenol] 975 mg PO Q8HPRN PRN mild pain
Albuterol [ProAIR HFA INHALER] 2 puff INH R Q4HPRN PRN sob
Apixaban [Eliquis] 2.5 mg PO BID
Bisacodyl [Dulcolax] 10 mg RECTAL [id number] PRN
Docusate W/Senna [Senokot-S] 1 tablet PO BIDPRN PRN
Gabapentin [Neurontin] 300 mg PO BID
NORepinephrine 4 MG/250 ML [Levophed] 4 mg in 250 ml IV PER PROTOCOL
Initial dose in mcg/min, then titrate:: 2
Titrate to keep:: MAP > 65 mmHg
Titrate by mcg/min:: 1-2 mcg/min
Frequency of titrations (minutes):: 5
Maximum dose in ICU in mcg/min:: 30
Maximum dose in IMU in mcg/min:: 8
Maximum dose in IVU in mcg/min:: 4
Begin to taper infusion when:: Remained at goal for 4hrs
Taper by mcg/min:: 1-2 mcg/min
Frequency of taper (minutes) if patient maintains goal:: 30
Taper to off?: Yes
If infusion off & no longer maintaining goal:: Contact Provider
Ondansetron Injectable [Zofran] 4 mg IV Q6HPRN PRN
Polyethylene Glycol Powder [Miralax] 17 grams PO DAILYPRN PRN
Sennosides [Senokot] 17.2 mg PO DAILYPRN PRN constipation
06/13/25 21:37
CARDIOLOGY CONSULT Routine
Consulting Provider: Edward Evans
Was physician already notified: Yes
Reason for consult: bradycardia, afib on amio
VTE Contraindication Routine
VTE Mechanical Device Contraindication: Medical Contraindication
Pharmocologic Contraindication: Medical Contraindication
Activity As Directed
Activity Level: With Assistance
Bedside Glucose Monitoring As Directed
Frequency: AC&HS
Bladder Scan As Directed
Follow Bladder Retention/Intermittent Cath Algorithm?: Yes
PRN if no void in __ hours: 6
Frequency: Per Retention Algorithm
If Bladder Scan Result >: 400
then:: Straight cath
Straight Cath As Directed
Frequency: Per Retention Algorithm
Additional Instructions: straight cath as needed per acute urinary retention algorithm for 24 hrs
Additional Instructions: for bladder scan greater than 400 mL
Vital Signs As Directed
Frequency: Per unit guidelines
Weight As Directed
Frequency: Daily
Oxygen Therapy [O2 Therapy] [RESP] Routine
Nasal Cannula Liter Flow: 2 LPM
Titrate/Wean O2 to maintain O2 sat greater than (%): 95
Pulse Ox/cont/shift [RESP] Routine
Quantity: 1
06/13/25 22:00
Atorvastatin [Lipitor] 20 mg PO HS
Ferrous Sulfate [Feosol] 325 mg PO TID
06/14/25 04:42
Basic Metabolic Panel IN AM
Cardiovascular Evaluation IN AM
Complete Blood Count/No Diff IN AM
Magnesium IN AM
TSH Reflex To Free T4 IN AM
Troponin I IN AM
06/14/25 06:00
Levothyroxine [Synthroid] 150 mcg PO DAILY @ 0600
06/14/25 07:30
Insulin Aspart Corrective Low [Novolog Flexpen-Low Resistance] See Protocol SC AC
06/14/25 08:00
Amiodarone [Pacerone] 200 mg PO DAILY
Aspirin Low Dose EC [Aspir Low (Enteric Coated)] 81 mg PO DAILY
Sertraline HCl [Zoloft] 50 mg PO DAILY
insulin glargine [Lantus Solostar U-100 Insulin] 8 unit SC DAILY
Abnormal Lab Results
06/13/25 06/13/25 06/13/25
15:25 15:53 16:25
Hgb 11.7 L g/dL
(12.0-16.0)
Hct 36.9 L %
(37.0-47.0)
MCHC 31.7 L g/dL
(33.0-37.0)
RDW 17.9 H %
(11.5-14.5)
Neutrophils % 76.2 H %
(42.2-75.2)
Lymphocytes % 14.6 L %
(20.5-51.1)
VBG pCO2
VBG pO2
VBG HCO3
Chloride 108 H mmol/L
(98-107)
BUN 28 H mg/dl
(7-17)
Creatinine 1.7 H mg/dL
(0.6-1.0)
Glucose 181 H mg/dl
(70-99)
Leukocyte Esterase Rfl 2+ A
(Negative)
Urine WBC (Reflex) 26-30 A /HPF
(0-5)
Urine Bacteria (Reflex) Moderate A
(Negative)
POC Glucose 177 H mg/dl
(70-99)
06/13/25
16:58
Hgb
Hct
MCHC
RDW
Neutrophils %
Lymphocytes %
VBG pCO2 49 H mmHg
(35-48)
VBG pO2 164 H mmHg
(30-50)
VBG HCO3 29.0 H mmol/L
(22-27)
Chloride
BUN
Creatinine
Glucose
Leukocyte Esterase Rfl
Urine WBC (Reflex)
Urine Bacteria (Reflex)
POC Glucose
06/13/25 15:53
06/13/25 15:53
Vital Signs
Initial and Last Documented VS:
Initial Vital Signs
Temp Pulse Resp BP Pulse Ox
98.4 F 55 16 76/56 93
06/13/25 15:19 06/13/25 15:19 06/13/25 15:19 06/13/25 15:19 06/13/25 15:19
Last Documented Vital Signs
Temp Pulse Resp BP Pulse Ox
98.0 F 49 13 116/74 94
06/14/25 06:39 06/14/25 08:30 06/14/25 08:30 06/14/25 08:00 06/14/25 08:30
<Rigoberto Cid PA-C - Last Filed: 06/14/25 08:42>
MDM/Problems Addressed
Differential Diagnosis Includes:
Weakness, reported increased confusion. Recent admission for confusion. Blood sugar checked out front and is not low. Will check labs including blood cultures and lactic acid and urinalysis
<Rigoberto Cid PA-C - Last Filed: 06/14/25 08:42>
*Pulse Oximetry
SaO2: 93
Oxygen Mode of Delivery: Room air
Patient hypoxic: no
*Critical Care Note
Total Time (30-74mins, 75-104mins- exclusive of procedures): Not Applicable
ED Attending Note
<Rigoberto Cid PA-C - Last Filed: 06/14/25 08:42>
-
Portions of this chart may have been created with voice recognition software.� Occasional wrong word or��sound alike� substitutions may have occurred due to the inherent limitations of voice recognition software.
<Dalton Britt MD - Last Filed: 06/13/25 18:27>
ED Attending Note
Patient seen and examined by attending physician: Yes
I performed a history and physical exam of patient and discussed management with resident, I reviewed resident's note and agree with documented findings and plan of care.: Yes
ED Attending Note:
I have seen and evaluated the patient with a [id number] encounter. I have spoken to the advance practicer provider and involved in the medical history, the physical exam, medical decision making.
Evaluation and management service: agree unless noted differently below.
Results interpretation: agree unless noted differently below.
Focused HPI: 65-year-old female with extensive medical history including COPD, chronic respiratory failure on 2 L of home oxygen, hypertension, hyperlipidemia, atrial fibrillation on amiodarone and Eliquis, congestive heart failure, diabetes who
presents to the emergency room with for evaluation of change in mental status. reports that she was confused and restless all day today, became increasingly lethargic throughout the day. She was having trouble urinating. He
brought him to the emergency room for evaluation. Has not noticed any cough or respiratory issues. No fever noted. No vomiting or diarrhea. No recent falls although she did have a fall a little over a month ago and has a cast on her left wrist.
Physical exam: Patient is lethargic but arousable. She is hypotensive and bradycardic�bradycardia known and chronic. No tachypnea or hypoxia�she is currently on her normal 2 L of oxygen. She is afebrile. She has scattered wheezing on lung
auscultation. Abdomen nontender. She is status post right BKA. She has trace edema in the left ankle.
Medical Decision Makin-year-old female presents with change in mental status today as described above. Vitals and exam as above. Her initial bladder scan showed a 50 cc retained urine requiring straight cath. Labs were sent off including a
CBC which shows stable mild anemia. CMP showed mild MICHEAL with a creatinine of 1.7. Urinalysis was positive for infection. Chest x-ray showed some pulmonary vascular congestion. CT head negative for any acute pathology. She was given some IV
fluids slowly given her history of CHF and vascular congestion noted on chest x-ray�blood pressure slightly improved. Will continue cautious fluid resuscitation. Cover with antibiotics for UTI. Case discussed with hospitalist for admission.
Discharge Plan
Departure
Patient Disposition: Admit
Date of Disposition: 06/13/25
Time of Disposition: 18:26
Admit to doctor: Ovidio
Presentation/result/management discussed w/ accepting MD/DO: Hospitalist
Discharge Problem:
Altered mental status, Acute UTI
Interventions
Interventions:
*Risk Screen - Suicide Last Done: 06/13/25 15:19
*General Assessment Last Done: 06/13/25 15:19
*Neglect/Abuse Screening Last Done: 06/13/25 15:19
*ED- Fall Risk Assessment Last Done: 06/13/25 15:19
*ED COVID-19 Vaccine History Last Done: 06/13/25 15:19
*Nursing Disposition Last Done: 06/13/25 21:28
ED- Pulmonary Assessment Last Done: 06/13/25 21:28
ED-Psychological Assessment Last Done: 06/13/25 21:28
ED- Neurological Assessment Last Done: 06/13/25 15:51
ED- Cardiac Assessment Last Done: 06/13/25 21:28
ED Swallowing Screen Last Done: 06/13/25 17:10
Discharge Date and Time
Discharge Date/Time: 06/13/25 21:29
[2025-06-13] MEDS: NSS 1000 IV (16:13)
[2025-06-13 16:25] LABS: Hematocrit 36.9 % (37.0-47.0); Hemoglobin 11.7 g/dL (12.0-16.0); Mean Corp Hgb Conc. 31.7 g/dL (33.0-37.0); Mean Corpuscular Volume 85.4 fL (81.0-99.0); Nucleated Red Blood Cells % 0 %; Platelet Count 197 10^3/uL (130-400); Red Cell Dist. Width 17.9 % (11.5-14.5)
[2025-06-13 16:34] LABS: Urine Character Clear (Clear)
[2025-06-13 16:37] LABS: ALT (SGPT) 13 U/L (0-35); AST (SGOT) 18 U/L (14-36); Albumin 3.9 g/dl (3.5-5.0); Alkaline Phosphatase 92 U/L (38-126); Blood Urea Nitrogen 28 mg/dl (7-17); Calcium 9.4 mg/dl (8.4-10.2); Carbon Dioxide 29 mmol/L (22-30); Chloride 108 mmol/L (98-107); Glucose 181 mg/dl (70-99); Potassium 3.5 mmol/L (3.5-5.1); Sodium 144 mmol/L (135-145); Total Protein 7.1 g/dl (6.3-8.2); eGFR 32.66
[2025-06-13 16:49] LABS: Troponin I < 0.012 ng/ml
[2025-06-13 16:59] LABS: Urine Red Blood Cell 0-2 /HPF (0-2)
[2025-06-13 17:00] LABS: Urine White Cell 26-30 /HPF (0-5)
[2025-06-13 17:14] LABS: Venous Blood Gas B.E. 3.1 mmol/L (-4 to +4); Venous Blood Gas O2 Sat % 100.0 %
[2025-06-13] MEDS: ROCEPHIN 1000 MG IV (18:32)
[2025-06-13] MEDS: NSS 500 IV (18:32)
--- NOTE | 2025-06-13 18:37 | PHANOTE ---
med rec note- called spouse on file to go over patient med list and last dose. also 4 medication were filled after patient discharge 05/25/25 but were not mention in her paperwork
--- NOTE | 2025-06-13 18:51 | HPS.HSE ---
Family Physician
-
Family Physician: Tera Perez
Chief Complaint
-
Altered mental status
History of Present Illness
Patient is a 65-year-old with past medical history significant for atrial fibrillation on anticoagulation, CHF, insulin-dependent diabetes, anxiety/depression who presents to the emergency department today via her for generalized weakness
and confusion.
Patient was also admitted 2 weeks ago for toxic metabolic encephalopathy. He is a very poor historian but she denies any specific complaints. She denies any chest pain palpitations lightheadedness or dizziness. She denies any recurrent
hypoglycemic episodes at home. She denies dysuria hematuria or flank pain. She denies having any fevers or chills. It has been no known sick contacts at home. She denies orthopnea or PND. She is on 2 L home O2 and that has not changed recently.
She denies any lower extremity swelling or weight gain. She denies have any chest pain.
She was admitted a few weeks ago in May for toxic metabolic encephalopathy. At that time she reported confusion as well as sleepiness. Workup was notable for suspected UTI which also eventually ruled out. She was ruled out for a seizure with EEG
as well as a negative CT. She was found to have intermittent bradycardia to the mid to low 40s. Metoprolol was reduced to 12.5 mg daily. No other medication changes.
In the emergency department the patient remained afebrile with temp of 98.4, however her initial blood pressure was in the 70s systolic. After 1 L normal saline she had a blood pressure of 100/71, pulse rate was 41, respiratory rate was 11, pulse
ox was 95% on [address] of the head was unremarkable. ECG shows sinus bradycardia rate of 43 without any acute changes compared to prior. X-ray shows slight pulmonary edema. ABG was unremarkable at 7.3 .
CBC was unremarkable, electrolytes were in the normal range. BUN/creatinine slightly elevated at 28 and 1.7 compared to baseline creatinine of 1.3. Leukos was 181. UA was positive for leukocyte esterase WBCs and bacteria but no nitrites.
Medical History
Past Medical History
Past Medical History: Reports Arrhythmia (Atrial fibrillation), CHF, CVA, HTN, Hypercholesterolemia, Hypothyroidism, IDDM and Other (CKD, Multiple sclerosis)
Past Surgical History: Reports Brain (Unspecified resection) and Other (R BKA; x1; Shoulder (unspecified))
Social History
Tobacco: Former Smoker (45 pack-years)
Alcohol: Former (No alcohol in 20+ years)
Drug: None
Personal:
Living: With Family
Family History
Family History: Cancer (unspecified) and Diabetes
Allergies / Home Medications
Allergies reflects when Allergies were last updated in [facility].
Home Medications with original date entered in [facility]
Allergy/Medication List:
Penicillins - Hives
Review of Systems
-
Constitutional: Denies Fever, Fatigue or Chills
EENT: Reports No Symptoms
Respiratory: Denies Cough or Trouble Breathing
Cardiac: Denies Chest Pain or Palpitations
Abdomen/GI: Denies Abdominal Pain, Nausea, Vomiting or Diarrhea
: Reports No Symptoms
Musculoskeletal: Denies Edema
Skin: Reports No Symptoms
Neurological: Denies Headache, Weakness or Numbness
Psych: Reports Other (Somnolent)
Physical Exam
Vital Signs
Vital Signs
Temp Pulse Resp BP Pulse Ox
98.4 F 41 11 100/71 95
06/13/25 15:19 06/13/25 17:15 06/13/25 17:15 06/13/25 17:49 06/13/25 17:49
Physical Exam
General: No Apparent Distress
HEENT: NormoCephalic and Atraumatic
Respiratory: Clear and Non Labored Respirations; No Wheezes or Crackles
Cardiac: S1/S2 and Bradycardia; No Murmur, Rub, Gallop or Peripheral Edema
GI: Soft, Non Tender and Normal Bowel Sounds
Rectal: Deferred by Provider
Genito-urinary: No costovertebral tender
Musculoskeletal: No Edema
Skin: Warm and Dry
Neuro: Awake, Alert, Oriented (Oriented to person only), No Motor Deficits, Nonfocal/grossly intact and No Sensory Deficits
Psych: Other (Somnolent)
Laboratory Results
-
06/13/25 15:53
06/13/25 15:53
Laboratory Results
Lactic Acid Cancelled 06/13/25 20:00
Total Bilirubin 0.8 mg/dl (0.2-1.3) 06/13/25 15:53
AST 18 U/L (14-36) 06/13/25 15:53
ALT 13 U/L (0-35) 06/13/25 15:53
Alkaline Phosphatase 92 U/L (38-126) 06/13/25 15:53
Troponin I < 0.012 ng/ml 06/13/25 15:53
Data Reviewed
-
Diagnostic Radiology: Image Personally Visualized and interpreted
CT Scan: Report Reviewed by me
Medical Tests (Nuc Med, Echo, EKG etc): Image Personally Visualized and interpreted
Lab Data: Labs Reviewed by me
Old Records: Reviewed
Impression/Plan
-
IMPRESSION:
Clearly failure for history above patient presents confused and sleepy similar to prior presentation, found to be hypotensive and bradycardic. Patient has minimal pulmonary edema on x-ray, CT of the head was similarly negative. Rest of the labs
shows normal CBC normal electrolytes with a slight elevation in BUN and creatinine, UA was equivocal with positive leukocyte esterase WBCs and bacteria and can of similar to prior with negative nitrites. Prior culture was positive for Enterococcus
faecalis as well as Klebsiella that is resistant. Blood gas is unremarkable. Overall picture is consistent with toxic metabolic encephalopathy however cannot rule out symptomatic bradycardia. When patient is asleep bradycardia is down to the 30s
although when aroused heart rate improved to the mid 40s. Troponin negative. Lactate 1.8.
PLAN:
Toxic metabolic encephalopathy - Suspect UTI but given prior admission not entirely convinced. Cannot rule out hypothyroid entirely.
- admit to IMU
- blood cultures sent
- start meropenem for now
- ID consultation
- check tsh
Bradycardia - On amio 200 and metoprolol 12.5 daily. Sinus arden, no heart block. Suspect symptomatic arden to the 40s and 30s
- telemetry
- d/w cardiology, recommends levophed if hypotensive,
- atropine if unstable
- trend troponin, echo, tsh
- cardiology consultation
AFIB
- continue amio for now
- hold bb
- continue eliquis
CHF
- hold bumex unless symptomatic
DM II
- sliding scale insulin for now
DVT PPX - on eliquis
Code status - Full Code
[2025-06-13 20:47] LABS: COVID-19 Antigen Negative (Negative)
[2025-06-13] MEDS: LIPITOR 20 MG PO (22:25)
[2025-06-13] MEDS: ELIQUIS 2.5 MG PO (22:25)
[2025-06-13] MEDS: FEOSOL 325 MG PO (22:25)
[2025-06-13] MEDS: NEURONTIN 300 MG PO (22:25)
[2025-06-14] VITALS (14 sets, daily range): BP systolic 89–124; BP diastolic 51–81; BMI 32.3
--- NOTE | 2025-06-14 02:20 | PTCARENOTE ---
Pt received from ED RN. Pt orientated to self. NSR/ sinus arden on monitor 40-50 bpm. urine sample sent. Q2T. sacral foam applied to sacrum. took pills crushed in apple sauce. assessment as documented. safe environment maintained.
[2025-06-14] MEDS: STERILE WATER FOR INJECTION 10 ML IV ×3 (02:26→18:10)
[2025-06-14] MEDS: MERREM 500 MG IV ×3 (02:27→18:10)
[2025-06-14 04:55] LABS: Hematocrit 37.3 % (37.0-47.0); Hemoglobin 12.1 g/dL (12.0-16.0); Mean Corp Hgb Conc. 32.4 g/dL (33.0-37.0); Mean Corpuscular Volume 84.6 fL (81.0-99.0); Platelet Count 189 10^3/uL (130-400); Red Cell Dist. Width 17.8 % (11.5-14.5)
[2025-06-14 05:21] LABS: Blood Urea Nitrogen 22 mg/dl (7-17); Calcium 8.9 mg/dl (8.4-10.2); Carbon Dioxide 29 mmol/L (22-30); Chloride 109 mmol/L (98-107); Estimated Creatinine Clearance 49 ml/min; Glucose 153 mg/dl (70-99); HDL Cholesterol 44 mg/dl; LDL Cholesterol, Calculated 78 mg/dl; Magnesium 1.5 mg/dl (1.6-2.3); Potassium 3.6 mmol/L (3.5-5.1); Sodium 144 mmol/L (135-145); Very Low Density Lipoprotein 27 mg/dl (0-30); eGFR 45.07
[2025-06-14 05:33] LABS: Troponin I < 0.012 ng/ml
[2025-06-14] MEDS: SYNTHROID 150 MCG PO (05:55)
--- NOTE | 2025-06-14 07:00 | PTCARENOTE ---
Cannot verify VS captured from prior shift.
[2025-06-14] MEDS: PACERONE PO (07:35)
[2025-06-14 07:59] LABS: Glucose - Point of Care 134 mg/dl (70-99)
[2025-06-14] MEDS: NOVOLOG FLEXPEN-LOW RESISTANCE SC ×4 (08:00→17:16)
[2025-06-14] MEDS: FEOSOL 325 MG PO ×3 (08:29→21:20)
[2025-06-14] MEDS: ZOLOFT 50 MG PO (08:29)
[2025-06-14] MEDS: ASPIR LOW (ENTERIC COATED) 81 MG PO (08:29)
[2025-06-14] MEDS: ELIQUIS 2.5 MG PO (08:29)
[2025-06-14] MEDS: PACERONE 200 MG PO (08:29)
[2025-06-14] MEDS: NEURONTIN 300 MG PO ×2 (08:30→19:40)
[2025-06-14] MEDS: LANTUS 0.08 UNITS SC (08:30)
--- NOTE | 2025-06-14 08:37 | PTCARENOTE ---
Pt bradycardic in the 40's. Dr. Thompson at bedside. Advised to give Amio by .
--- NOTE | 2025-06-14 09:39 | CON.CAR ---
Consultation
Consultation Request
Date/Time Consultation Requested: June 14, 2025 7:45 AM
Date/Time Consultation Performed: June 14, 2025 9:40 AM
Requesting Provider: Hospitalist
Performing Provider: Alan Thompson
Reason for Consultation: Bradycardia
Medical History
-
Chief Complaint: Altered mental status
History of Present Illness:
65-year-old female with past medical history of AF on Amio and Eliquis, congestive heart failure, insulin-dependent diabetes, anxiety/depression who presented yesterday for weakness and confusion. She remains confused and is unable to tell me where
she is, what year it is, or the date. The majority of the interview was thus obtained from chart review.
Patient was also admitted 2 weeks ago for toxic metabolic encephalopathy. He is a very poor historian but she denies any specific complaints. She denies any chest pain palpitations lightheadedness or dizziness. She denies any syncopal episodes.
She is able to tell me she has a crab catcher but can't remember their name. Additionally, she knows she has a slow HR and tells me her crab catcher is aware.
She denies any symptoms related to bradycardia.
Past Medical History
Past Medical History: Arrhythmias (AF), CHF, CVA, HTN, Hypercholesterolemia, Hypothyroidism, IDDM and Other (CKD and multiple sclerosis )
Past Surgical History: Brain and Other (R BKA C sxn x1; shoulder surgery )
Social History
Tobacco: Former Smoker
Alcohol: None
Drug: None
Personal:
Living: With Family
Family History
Family History: Reviewed & Not Pertinent
Allergies / Home Medications
Allergy/AdvReac Type Severity Reaction Status Date / Time
Penicillins Allergy Hives Verified 10/18/16 12:14
�Medication �Instructions �Recorded �Confirmed �Type
baclofen 10 mg tablet 20 mg PO BIDPRN PRN spasms 03/05/16 06/13/25 History
levothyroxine 150 mcg tablet 150 mcg PO DAILY Thyroid 03/05/16 06/13/25 History
sertraline 50 mg tablet 50 mg PO DAILY depression/anxiety 03/05/16 06/13/25 History
aspirin 81 mg tablet,delayed 81 mg PO DAILY Blood Clot 10/18/16 06/13/25 History
release Prevention/Tx
gabapentin 300 mg capsule 300 mg PO BID Pain 10/18/16 06/13/25 History
acetaminophen 325 mg tablet 975 mg PO Q8HPRN PRN mild pain 05/21/25 06/13/25 History
(Tylenol)
albuterol sulfate 90 mcg/actuation 2 puff inhalation R Q4HPRN PRN sob 05/21/25 06/13/25 History
aerosol inhaler
amiodarone 200 mg tablet 200 mg PO DAILY Heart 05/21/25 06/13/25 History
Disease/Condition
apixaban 2.5 mg tablet (Eliquis) 2.5 mg PO BID Blood Clot 05/21/25 06/13/25 History
Prevention/Tx
atorvastatin 20 mg tablet (Lipitor) 20 mg PO HS High Cholesterol 05/21/25 06/13/25 History
bumetanide 2 mg tablet 2 mg PO DAILY Fluid 05/21/25 06/13/25 History
Retention/Swelling
cholecalciferol (vitamin D3) 25 25 mcg PO DAILY Supplement 05/21/25 06/13/25 History
mcg (1,000 unit) tablet (Vitamin
D3)
ferrous sulfate 325 mg (65 mg 325 mg PO TID Supplement 05/21/25 06/13/25 History
iron) tablet
insulin glargine 100 unit/mL (3 8 unit SC DAILY Diabetes 05/21/25 06/13/25 History
mL) subcutaneous pen (Lantus
Solostar U-100 Insulin)
insulin lispro 100 unit/mL 12 unit SC QPM Diabetes 05/21/25 06/13/25 History
subcutaneous pen (Humalog KwikPen
(U-100) Insulin)
insulin lispro 100 unit/mL 14 unit SC DAILY Diabetes 05/21/25 06/13/25 History
subcutaneous pen (Humalog KwikPen
(U-100) Insulin)
sennosides 8.6 mg tablet (senna) 17.2 mg PO DAILYPRN PRN 05/21/25 06/13/25 History
constipation
metoprolol succinate 25 mg 12.5 mg (1/2 x 25 mg) PO DAILY 05/24/25 06/13/25 Rx
tablet,extended release 24 hr Heart disease/condition 90 days
#45 tabs
amlodipine 5 mg tablet (Norvasc) 5 mg PO DAILY 06/13/25 06/13/25 History
clonazepam 0.5 mg tablet 0.5 mg PO DAILYPRN PRN anxiety 06/13/25 06/13/25 History
oxybutynin chloride 5 mg tablet 5 mg PO QPM 06/13/25 06/13/25 History
oxycodone 5 mg tablet 5 mg PO Q6HPRN PRN mild pain 06/13/25 06/13/25 History
Review of Systems
-
All other systems: Negative unless noted
Physical Exam
Vital Signs
Temp Pulse Resp BP Pulse Ox
98.0 F 49 13 116/74 94
06/14/25 06:39 06/14/25 08:30 06/14/25 08:30 06/14/25 08:00 06/14/25 08:39
Lab Results
06/14/25 04:42
06/14/25 04:42
Troponin I < 0.012 ng/ml 06/14/25 04:42
Xhu-D-Zobbceolwjw Pept 1660 pg/ml 06/13/25 15:53
Physical Exam
General: Well Developed and Well Nourished
HEENT: Normocephalic and Anicteric
Respiratory: Clear and Non Labored Respirations
Cardiac: S1/S2 and Regular Rhythm
GI: Soft
Musculoskeletal: No Edema
Skin: Warm and Dry
Neuro: Awake, Alert and Oriented (to person only )
Psych: Confused
Impression / Plan
-
A/P: 65-year-old female with past medical history of AF on Amio and Eliquis, congestive heart failure, insulin-dependent diabetes, anxiety/depression who presented yesterday for weakness and confusion. She remains confused and is unable to tell me
where she is, what year it is, or the date. We are consulted for bradycardia in setting of paroxysmal AF.
Sinus bradycardia
- reduce amio to 100 mg
- cont metoprolol
- it does not appear to be causing any issues at the moment and she does appear to know she has bradycardia
- she should f/u with home crab catcher
- no need for PPM
Paroxysmal AF
- no bleeding on Eliquis cont
- Decrease amio to 100 mg
- cont metop at 12.5 mg
We will sign off pls call with questions/concerns.
Data Reviewed
-
EKG: Tracing Personally Visualized and interpreted (sinus arden )
Labs: Labs Reviewed by me
--- NOTE | 2025-06-14 10:22 | CON.ID ---
Consultation
-
Date/Time Consultation Requested: June 14, 20252218
Date/Time Consultation Performed: June 14, 2025 1025
Requesting Provider: Dr. Bhavin Roger
Performing Provider: Dr. Cecy Ayala
Reason for Consultation: UTI with resistant Klebsiella
Chief Complaint / Past History
Chief Complaint
Change in mental status
History of Present Illness
History obtained predominantly from her at bedside since patient is somewhat confused. 65-year-old female with diabetes mellitus, atrial fibrillation, CVA, CHF, multiple sclerosis, right BKA who presented from home due to acute change in
mental status. Patient was recently hospitalized from May 21 to May 24 with confusion possible seizure activity. EEG was negative. Urine culture grew ESBL Klebsiella and Enterococcus considered as asymptomatic bacteriuria and therefore no
indication for treatment. Per patient was doing well until yesterday she became very agitated, confused, she did not recognize him. Also patient unable to void. No fever at home. He brought her to the ER yesterday. Initial blood
pressure 76/56 responded to IV fluids. Patient noted to be bradycardic. She is currently on meropenem. Per patient remains confused today. Patient reports urine urgency but unable to urinate. Had pain when she tried to urinate. No
flank pain. She denies fevers or chills. No abdominal pain. No diarrhea. No cough.
Past History
Additional Past Medical History:
Diabetes mellitus
Hypertension
Dyslipidemia
Hypothyroidism
CHF
CVA
Atrial fibrillation
Multiple sclerosis no longer on Copaxone
Anxiety/depression
CKD3b
hx John's gangrene s/p I+D right abd/perineum 2015
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
Left parietal brain resection/biopsy
Left wrist fracture
Allergy History:
Penicillins Allergy (Verified 10/18/16 12:14)
Hives
Medications Reviewed: Yes
Current Antibiotics:
Meropenem 500 mg IV every 8 hours
Social History
Tobacco: Former Smoker
Alcohol: Former
Personal:
Family History
Family History: Not Pertinent
Review of Systems
Review of Systems
General: Change in Appetite; Negative Fever or Chills
HEENT: Headache
Respiratory: Negative Dyspnea or Cough
Gasteroenterology: Negative Nausea, Vomiting or Diarrhea
Genital / Urological: Other (Urgency, difficulty voiding); Negative Dysuria
Endocrine: Weakness
All systems: All other systems were reviewed and were negative
Vital Signs
Temp Pulse Resp BP Pulse Ox
98.0 F 49 13 116/74 94
06/14/25 06:39 06/14/25 08:30 06/14/25 08:30 06/14/25 08:00 06/14/25 08:39
Physical Exam
Physical Exam
Constitutional: Acutely Ill
Head: Other (No frontal or max or sinus tenderness)
Eyes: No Conjunctival Hemorrhage and Sclera Anicteric
Cardiovascular: S1/S2 (Bradycardic)
Pulmonary: Clear
Gastrointestinal: Soft, Non Tender, Non Distended and Normal Bowel Sounds
Genito-Urinary: Ram and Clear Urine
Extremities: Negative Edema
Neurological: Other (Lethargic but arousable); Negative Meningeal Signs
Lab / Diagnostic Study Results
06/14/25 04:42
06/14/25 04:42
Abs Immat Gran (auto) 0.0 10^3/uL (0-0.05) 06/13/25 15:53
Absolute Neuts (auto) 6.0 10^3/uL (1.4-6.5) 06/13/25 15:53
Absolute Lymphs (auto) 1.2 10^3/uL (1.2-3.4) 06/13/25 15:53
Absolute Monos (auto) 0.6 10^3/uL (0.1-0.6) 06/13/25 15:53
Absolute Basos (auto) 0.0 10^3/uL (0-0.2) 06/13/25 15:53
Immature Gran % 0.4 % (0-0.5) 06/13/25 15:53
Neutrophils % 76.2 % (42.2-75.2) H 06/13/25 15:53
Lymphocytes % 14.6 % (20.5-51.1) L 06/13/25 15:53
Monocytes % 7.1 % (1.7-9.3) 06/13/25 15:53
Eosinophils % 1.3 % (0-6) 06/13/25 15:53
Basophils % 0.4 % (0-2) 06/13/25 15:53
Lactic Acid Cancelled 06/13/25 20:00
Ur Squamous Epith Cells 3-5 /LPF (Few) 06/13/25 16:25
Microbiology Results
Micro:
06/13/25 16:25 Urine Culture - Pending
Urine
06/13/25 16:15 Blood Culture - Pending
Blood/Venous
06/13/25 16:15 Blood Culture - Pending
Blood/Venous
06/13/25 CXR: Findings suggest mild interstitial pulmonary edema.
Assessment / Plan
# MDR-ESBL Klebsiella complicated UTI
# Urinary retention, ram placed 06/14
# Metabolic encephalopathy
-Await Bcx and Ucx
-Renal US
- Agree with meropenem
- Follow clinically
- Contact precaution
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
Diabetes mellitus
Hypertension
Dyslipidemia
Hypothyroidism
CHF
CVA
Atrial fibrillation
Multiple sclerosis, no longer on Copaxone
Anxiety/depression
CKD3b
hx John's gangrene s/p I+D right abd/perineum 2015
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
Left parietal brain resection/biopsy
Left wrist fracture
--- NOTE | 2025-06-14 11:40 | PTCARENOTE ---
Pt desatting to the 60's on 2L. Increased to 6L with sats recovering to mid 90's.
[2025-06-14] MEDS: MAGNESIUM SULFATE 50 IV (12:38)
[2025-06-14 12:54] LABS: Glucose - Point of Care 129 mg/dl (70-99)
--- NOTE | 2025-06-14 14:22 | W.PN.HOSP.TC ---
Today's Communication/Plan
-
see outlined plan below
Assessment / Plan
Assessment / Plan
Assessment:
TME in setting of complicated UTI - UTI is Multi-drug resistant ESBL Klebsiella
Urinary retention
- requiring Davis
- continue Meropenem, day 1 per ID pending cultures
- renal US: negative
- precautions
- follow mentation; CT head negative
Chronic Sinus bradycardia
Hx of Slow Parox A. Fib
- follows with Dr. Obando - [facility] - obtain records
- Evaluated by Cardiology
- holding BB
- Amiodarone decrease to 100mg daily
- TSH: 10.60 - see below
- continue Eliquis
Recent left distal rad fx early May 2025
- casted, with OP Ortho f/u 1 week
Hx of CHF - type unknown
- resume Bumex
type 2 DM
- SSI
- resume basal
Hypothyroidism - increase LT4 with TSH of 10.6
CKD stage 3b
- monitor BMP
Depression - on Zoloft
History of MS
DVT ppx: Eliquis
Code: Full
Anticipated Discharge: > 48 hours
Subjective/Interval History
-
Date of Service: June 14, 2025
resting comfortably, no complaints at present
Objective Data
-
Labs:
Laboratory Results
06/14/25
04:42
WBC 7.8
Hgb 12.1
Hct 37.3
Plt Count 189
Sodium 144
Potassium 3.6
Chloride 109 H
Carbon Dioxide 29
BUN 22 H
Creatinine 1.3 H
Glucose 153 H
Calcium 8.9
Vital Signs:
Vital Signs
Temp Pulse Resp BP Pulse Ox
98.4 F 47 17 100/58 95
06/14/25 14:00 06/14/25 12:15 06/14/25 12:15 06/14/25 12:00 06/14/25 12:15
I&O
06/13/25 06/14/25 06/15/25
06:59 06:59 06:59
Output Total 100 / 100
Balance -100 / -100
Physical Exam
-
General: No Apparent Distress
HEENT: Normocephalic and Atraumatic
Respiratory: Negative Wheezes
Cardiac: Regular Rhythm and Bradycardic
GI: Soft and Nontender
Genito-urinary: No Costovertebral Tender
Neuro: AO x 3
Psych: Calm
Data Reviewed
-
Total Time Spent with Patient (in minutes): 46
Labs: Labs Reviewed by me
--- NOTE | 2025-06-14 15:21 | PTCARENOTE ---
Pt's assessment as documented. Aox1. SB with first degree and prolonged QT on tele monitor. Sating mid 90's on 6L. Straight cath for 800cc. Pt with poor appetite. Q2T and bed alarm maintained.
--- NOTE | 2025-06-14 15:47 | PTOTSP ---
Speech Therapy Evaluation:
Pt with acute on chronic risk factors of dysphagia (Hx CVA, MS, compounded by TME with UTI and increased O2 requirements). Oral phase mildly prolonged, likely related to partially edentulous state over true oral dysphagia. No overt s/sx of
aspiration across session. CXR without pneumonia. WBC WNL. Increased risk of aspiration during periods of confusion.
Recommend:
1. Regular solids and thin liquids
2. Meds as tolerated
3. General aspiration precautions
4. Dentures in place for meals
5. BLACKSMITH HELPER to follow to monitor tolerance of diet and determine if pt would benefit from instrumental assessment
[2025-06-14] MEDS: BUMEX 2 MG PO (16:41)
--- NOTE | 2025-06-14 16:46 | WOUNDNOTE ---
WO RN NOTE: Reviewed chart and met with patient. RN, Almaz assisted with assessment. Patient noted to have DTI of left heel with small open area and surrounding ecchymotic skin. The evolving PI appears to be superficial. Patient also has a newly
healed PI to left heel that now has a scab. This teletypewriter installer explained to patient that heel wound was evolving and may worsen. No-sting barrier was applied to left ankle and heel wound was covered with adaptic and ABD. Fiber filled boot applied. Sacrum
is intact. Dr. Colón made aware of DTI POA. Orders updated, will follow as needed.
[2025-06-14 16:51] LABS: Glucose - Point of Care 139 mg/dl (70-99)
[2025-06-14] MEDS: ELIQUIS 5 MG PO (19:40)
[2025-06-14] MEDS: DESENEX/MITRAZOL/ZEASORB 1 APPLIC TOPICAL (21:20)
[2025-06-14] MEDS: LIPITOR 20 MG PO (21:20)
[2025-06-14 21:28] LABS: Glucose - Point of Care 197 mg/dl (70-99)
[2025-06-15] VITALS (15 sets, daily range): BP systolic 82–139; BP diastolic 57–83; PULSE 61; O2SAT 94; BMI 32.3
[2025-06-15] MEDS: MERREM 500 MG IV ×3 (01:52→17:10)
[2025-06-15] MEDS: STERILE WATER FOR INJECTION 10 ML IV ×3 (01:53→17:10)
[2025-06-15 04:46] LABS: Hematocrit 38.7 % (37.0-47.0); Hemoglobin 12.4 g/dL (12.0-16.0); Mean Corp Hgb Conc. 32.0 g/dL (33.0-37.0); Mean Corpuscular Volume 84.7 fL (81.0-99.0); Platelet Count 203 10^3/uL (130-400); Red Cell Dist. Width 18.1 % (11.5-14.5)
[2025-06-15 05:05] LABS: Blood Urea Nitrogen 17 mg/dl (7-17); Calcium 9.2 mg/dl (8.4-10.2); Carbon Dioxide 33 mmol/L (22-30); Chloride 105 mmol/L (98-107); Estimated Creatinine Clearance 53 ml/min; Glucose 178 mg/dl (70-99); Potassium 3.2 mmol/L (3.5-5.1); Sodium 143 mmol/L (135-145); eGFR 49.61
[2025-06-15 08:28] LABS: Glucose - Point of Care 160 mg/dl (70-99)
[2025-06-15] MEDS: FEOSOL 325 MG PO ×3 (09:28→19:55)
[2025-06-15] MEDS: ELIQUIS 5 MG PO ×2 (09:28→19:55)
[2025-06-15] MEDS: NOVOLOG FLEXPEN-LOW RESISTANCE 1 UNITS SC ×2 (09:28→18:48)
[2025-06-15] MEDS: BUMEX 2 MG PO (09:28)
[2025-06-15] MEDS: ZOLOFT 50 MG PO (09:29)
[2025-06-15] MEDS: DESENEX/MITRAZOL/ZEASORB 1 APPLIC TOPICAL ×2 (09:29→19:55)
[2025-06-15] MEDS: KCL 40 MEQ PO (09:29)
[2025-06-15] MEDS: ASPIR LOW (ENTERIC COATED) 81 MG PO (09:29)
[2025-06-15] MEDS: NEURONTIN 300 MG PO ×2 (09:29→19:55)
[2025-06-15] MEDS: FLUSH (NSS) 1 FLUSH IV ×2 (09:31→17:10)
[2025-06-15] MEDS: LANTUS 0.08 UNITS SC (09:32)
--- NOTE | 2025-06-15 10:04 | W.PN.HOSP.TC ---
Today's Communication/Plan
-
continue Merrem; follow ID recs
PT/OT/OOBTC
wean O2; IS
continue Bumex
Assessment / Plan
Assessment / Plan
Assessment:
TME in setting of complicated UTI - UTI is Multi-drug resistant ESBL Klebsiella
Urinary retention
- requiring Davis
- continue Meropenem, day 2 per ID pending cultures
- renal US: negative
- precautions
- follow mentation; CT head negative
Coag negative staph bacteremia
Chronic Sinus bradycardia
Hx of Slow Parox A. Fib
- follows with Dr. Obando [facility] - obtain records
- Evaluated by Cardiology
- holding BB
- Amiodarone decrease to 100mg daily
- TSH: 10.60 - see below
- continue Eliquis
Recent left distal rad fx early May 2025
- casted, with OP Ortho f/u 1 week
Hx of CHF - type unknown
- continue Bumex
type 2 DM
- SSI
- resume basal
Hypothyroidism - increase LT4 with TSH of 10.6
CKD stage 3b
- monitor BMP
Depression - on Zoloft
History of MS
Hypokalemia
- replete daily
Constipation
- bowel regimen added
DVT ppx: Eliquis
Code: Full
Anticipated Discharge: > 48 hours
Subjective/Interval History
-
Date of Service: June 15, 2025
denies any new complaints at present
remains on 5L NC (from 3L NC) - reports using nocturnal O2
Objective Data
-
Labs:
Laboratory Results
06/15/25 06/15/25
04:16 04:17
WBC 10.5
Hgb 12.4
Hct 38.7
Plt Count 203
Sodium 143
Potassium 3.2 L
Chloride 105
Carbon Dioxide 33 H
BUN 17
Creatinine 1.2 H
Glucose 178 H
Calcium 9.2
Vital Signs:
Vital Signs
Temp Pulse Resp BP Pulse Ox
98.3 F 51 20 93/64 93
06/15/25 07:17 06/15/25 08:00 06/15/25 08:00 06/15/25 08:00 06/15/25 08:00
I&O
06/14/25 06/15/25 06/16/25
06:59 06:59 06:59
Output Total 100 / 100 800 / 800
Balance -100 / -100 -800 / -800
Physical Exam
-
General: No Apparent Distress
HEENT: Normocephalic and Atraumatic
Respiratory: Negative Wheezes
Cardiac: Regular Rhythm, S1/S2 and Bradycardic
GI: Soft
Genito-urinary: No Costovertebral Tender
Neuro: AO x 3
Psych: Calm
Data Reviewed
-
Total Time Spent with Patient (in minutes): 42
Labs: Labs Reviewed by me
--- NOTE | 2025-06-15 11:58 | W.PN.ID1 ---
Date of Service
Date of Service: June 15, 2025
Today's Communication
Continue meropenem.
Assessment / Plan
# MDR-ESBL Klebsiella complicated UTI
# Transient Urinary retention
# Metabolic encephalopathy improving
- Ucx: Klebsiella pneumoniae
-Renal US: no right hydro; left kidney not visualized due to patient positioning
- Continue meropenem
- Follow clinically
- Contact precaution
# Coag-neg staph bacteremia 1 of 2 sets
- Contaminant
- Follow repeat blood cx's.
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
Diabetes mellitus
Hypertension
Dyslipidemia
Hypothyroidism
CHF
CVA
Atrial fibrillation
Multiple sclerosis, no longer on Copaxone
Anxiety/depression
CKD3b
hx John's gangrene s/p I+D right abd/perineum 2015
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
Left parietal brain resection/biopsy
Left wrist fracture
Chief Complaint
-: UTI
Subjective / Review of Systems
Mental state improving.
Vital Signs / Physical Exam
Vital Signs
Vital Signs
Temp Pulse Resp BP Pulse Ox
98.3 F 61 23 118/83 95
06/15/25 07:17 06/15/25 11:33 06/15/25 11:33 06/15/25 11:33 06/15/25 11:47
Physical Exam
Constitutional: Acutely Ill
Cardiovascular: Regular Rate and S1/S2
Pulmonary: Clear
Gastrointestinal: Soft, Non Tender and Non Distended
Genito-Urinary: Negative Davis or CVA Tenderness
Neurological: AO x 3
Objective Data
Lab Data
Lab Results
06/15/25 04:17
06/15/25 04:16
Estimated Creat Clear 53 ml/min 06/15/25 04:16
Lactic Acid Cancelled 06/13/25 20:00
Total Bilirubin 0.8 mg/dl (0.2-1.3) 06/13/25 15:53
AST 18 U/L (14-36) 06/13/25 15:53
ALT 13 U/L (0-35) 06/13/25 15:53
Alkaline Phosphatase 92 U/L (38-126) 06/13/25 15:53
Most recent labs reviewed.
Micro Results:
06/13/25 16:25 Urine Culture - Final
Urine Klebsiella pneumoniae
06/15/25 04:16 Blood Culture - Pending
Blood/Venous
06/15/25 04:25 Blood Culture - Pending
Blood/Venous
06/13/25 16:15 Blood Culture - Preliminary
Blood/Venous Positive culture in progress
Gram Stain - Preliminary
06/13/25 16:15 Blood Culture - Preliminary
Blood/Venous No Growth in 24 hours- Final report to follow
06/13/25 CXR: Findings suggest mild interstitial pulmonary edema.
[2025-06-15] MEDS: MIRALAX 17 GRAMS PO (12:10)
[2025-06-15] MEDS: SENOKOT-S 1 TABLET PO ×2 (12:10→19:55)
[2025-06-15] MEDS: NOVOLOG FLEXPEN-LOW RESISTANCE 2 UNITS SC (13:20)
[2025-06-15 13:36] LABS: Glucose - Point of Care 242 mg/dl (70-99)
[2025-06-15 18:21] LABS: Glucose - Point of Care 196 mg/dl (70-99)
--- NOTE | 2025-06-15 18:40 | PTCARENOTE ---
Patient o2 weaned down to 1L via n/c spo2 92-93%. Patient OOB with therapy today. Sat in chair for several hours. Had large BM, on commode. Heavy assist x2. VS stable. Patient can make her needs known. Uses call cazares appropriately.
[2025-06-15] MEDS: LIPITOR 20 MG PO (19:55)
[2025-06-15] MEDS: MELATONIN 5 MG PO (19:57)
[2025-06-15 21:37] LABS: Glucose - Point of Care 279 mg/dl (70-99)
[2025-06-16] VITALS (13 sets, daily range): BP systolic 111–165; BP diastolic 48–73; PULSE 71; O2SAT 95; BMI 31.6
[2025-06-16] MEDS: MERREM 500 MG IV ×3 (02:29→17:43)
[2025-06-16] MEDS: STERILE WATER FOR INJECTION 10 ML IV ×3 (02:29→17:43)
[2025-06-16] MEDS: SYNTHROID 175 MCG PO (05:07)
[2025-06-16 05:51] LABS: Hematocrit 40.7 % (37.0-47.0); Hemoglobin 12.7 g/dL (12.0-16.0); Mean Corp Hgb Conc. 31.2 g/dL (33.0-37.0); Mean Corpuscular Volume 86.6 fL (81.0-99.0); Platelet Count 187 10^3/uL (130-400); Red Cell Dist. Width 17.6 % (11.5-14.5)
[2025-06-16 06:00] LABS: Blood Urea Nitrogen 17 mg/dl (7-17); Calcium 9.2 mg/dl (8.4-10.2); Carbon Dioxide 34 mmol/L (22-30); Chloride 103 mmol/L (98-107); Estimated Creatinine Clearance 46 ml/min; Glucose 189 mg/dl (70-99); Potassium 3.3 mmol/L (3.5-5.1); Sodium 144 mmol/L (135-145); eGFR 41.24
--- NOTE | 2025-06-16 06:20 | PTCARENOTE ---
Pt incontinent of large amount of urine. Bladder scan showed 450 PVR. Straight cathed for 450ml of clear yellow urine at 0530
[2025-06-16] MEDS: ASPIR LOW (ENTERIC COATED) 81 MG PO (08:30)
[2025-06-16] MEDS: SENOKOT-S 1 TABLET PO (08:30)
[2025-06-16] MEDS: ELIQUIS 5 MG PO ×2 (08:30→20:13)
[2025-06-16] MEDS: KCL 40 MEQ PO (08:31)
[2025-06-16] MEDS: NEURONTIN 300 MG PO ×2 (08:31→20:13)
[2025-06-16] MEDS: FEOSOL 325 MG PO ×3 (08:31→22:36)
[2025-06-16] MEDS: BUMEX 2 MG PO (08:31)
[2025-06-16] MEDS: MAGNESIUM OXIDE 500 MG PO (08:31)
[2025-06-16] MEDS: ZOLOFT 50 MG PO (08:31)
[2025-06-16] MEDS: MIRALAX 17 GRAMS PO (08:32)
--- NOTE | 2025-06-16 08:40 | W.PN.HOSP.TC ---
Today's Communication/Plan
-
continue Merrem
continue to wean O2
ongoing PT/OT - to bring in RLE prosthesis
DC planning - SNF recommended, currently patient prefers home/VN option instead
Assessment / Plan
Assessment / Plan
Assessment:
TME in setting of complicated UTI - UTI is Multi-drug resistant ESBL Klebsiella
Urinary retention
- requiring Davis
- continue Meropenem, day 3 per ID pending cultures
- renal US: negative
- precautions
- follow mentation; CT head negative. Mentation improving.
Coag negative staph bacteremia
- contaminant
Chronic Sinus bradycardia
Hx of Slow Parox A. Fib
- follows with Dr. Obando - [facility] - obtain records
- Evaluated by Cardiology
- holding BB
- Amiodarone decrease to 100mg daily
- TSH: 10.60 - see below
- continue Eliquis
Recent left distal rad fx early May 2025
- casted, with OP Ortho f/u 1 week
Hx of CHF - type unknown
- continue Bumex
type 2 DM
- SSI
- resume basal
Hypothyroidism - increase LT4 with TSH of 10.6
CKD stage 3b
- monitor BMP
Depression - on Zoloft
History of MS
Hypokalemia
- replete daily
Constipation
- bowel regimen added
DVT ppx: Eliquis
Code: Full
Anticipated Discharge: > 48 hours
Subjective/Interval History
-
Date of Service: June 16, 2025
resting comfortably, no complaints
Objective Data
-
Labs:
Laboratory Results
06/16/25
05:10
WBC 7.8
Hgb 12.7
Hct 40.7
Plt Count 187
Sodium 144
Potassium 3.3 L
Chloride 103
Carbon Dioxide 34 H
BUN 17
Creatinine 1.4 H
Glucose 189 H
Calcium 9.2
Vital Signs:
Vital Signs
Temp Pulse Resp BP Pulse Ox
97.7 F 54 20 152/52 90
06/16/25 07:37 06/16/25 08:31 06/16/25 02:00 06/16/25 08:31 06/16/25 02:00
I&O
06/15/25 06/16/25 06/17/25
06:59 06:59 06:59
Intake Total 1000 / 1000
Output Total 800 / 800 450 / 450
Balance -800 / -800 550 / 550
Physical Exam
-
General: No Apparent Distress
HEENT: Normocephalic
Respiratory: Clear to Auscultation; Negative Wheezes
Cardiac: Regular Rhythm and S1/S2
GI: Soft
Neuro: AO x 3
Psych: Calm
Data Reviewed
-
Total Time Spent with Patient (in minutes): 45
Labs: Labs Reviewed by me
[2025-06-16] MEDS: LANTUS 0.08 UNITS SC (08:56)
[2025-06-16] MEDS: DESENEX/MITRAZOL/ZEASORB 1 APPLIC TOPICAL ×2 (08:56→20:14)
[2025-06-16] MEDS: NOVOLOG FLEXPEN-LOW RESISTANCE 2 UNITS SC (08:57)
[2025-06-16 09:04] LABS: Glucose - Point of Care 200 mg/dl (70-99)
--- NOTE | 2025-06-16 09:55 | W.PN.ID1 ---
Date of Service
Date of Service: June 16, 2025
Today's Communication
Continue meropenem.
Assessment / Plan
# MDR-ESBL Klebsiella complicated UTI
# Urinary retention resolving
# Metabolic encephalopathy improving
- Ucx: Klebsiella pneumoniae - treat as ESBL Klebsiella (+ 7/9 Ucx)
-Renal US: no right hydro; left kidney not visualized due to patient positioning
- Continue meropenem (d3)
- When close to dc, will transition to Ertapenem 1g IV q24 through 06/23.
- Contact precaution
# Coag-neg staph bacteremia 1 of 2 sets
- Contaminant
- repeat blood cx's negative
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
Diabetes mellitus
Hypertension
Dyslipidemia
Hypothyroidism
CHF
CVA
Atrial fibrillation
Multiple sclerosis, no longer on Copaxone
Anxiety/depression
CKD3b
hx John's gangrene s/p I+D right abd/perineum 2015
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
Left parietal brain resection/biopsy
Left wrist fracture
Chief Complaint
-: UTI
Subjective / Review of Systems
Feeling better.
Per nurse, straigh cath for 400cc urine last night.
Vital Signs / Physical Exam
Vital Signs
Vital Signs
Temp Pulse Resp BP Pulse Ox
97.7 F 54 20 152/52 90
06/16/25 07:37 06/16/25 08:31 06/16/25 02:00 06/16/25 08:31 06/16/25 02:00
Physical Exam
Constitutional: Comfortable
Cardiovascular: Regular Rate and S1/S2
Pulmonary: Clear
Gastrointestinal: Soft, Non Tender and Non Distended
Neurological: AO x 3
Objective Data
Lab Data
Lab Results
06/16/25 05:10
06/16/25 05:10
Estimated Creat Clear 46 ml/min 06/16/25 05:10
Lactic Acid Cancelled 06/13/25 20:00
Total Bilirubin 0.8 mg/dl (0.2-1.3) 06/13/25 15:53
AST 18 U/L (14-36) 06/13/25 15:53
ALT 13 U/L (0-35) 06/13/25 15:53
Alkaline Phosphatase 92 U/L (38-126) 06/13/25 15:53
Most recent labs reviewed.
Micro Results:
06/15/25 04:16 Blood Culture - Preliminary
Blood/Venous No Growth in 24 hours- Final report to follow
06/15/25 04:25 Blood Culture - Preliminary
Blood/Venous No Growth in 24 hours- Final report to follow
06/13/25 16:15 Blood Culture - Preliminary
Blood/Venous No Growth in 48 hours- Final report to follow
06/13/25 16:15 Blood Culture - Preliminary
Blood/Venous Coagulase neg. staphylococcus
Additional testing on request
Gram Stain - Preliminary
06/13/25 16:25 Urine Culture - Final
Urine Klebsiella pneumoniae
06/13/25 CXR: Findings suggest mild interstitial pulmonary edema.
Care Review
Plan reviewed with: Physician (Dr. Colón)
[2025-06-16 12:07] LABS: Glucose - Point of Care 199 mg/dl (70-99)
--- NOTE | 2025-06-16 12:34 | CM ---
Reviewed the chart notes and spoke with the patient at the bedside. Patient resides with her spouse in an apartment at [facility]. The patient has a rolling walker, wheelchair, home O2 (vendor unkn), and a le prosthetic. The patient reports no
VN, but has been to [facility]. The patient confirmed pharmacy of choice is [facility]. The patient is adamant about returning to home even though PT/OT recommending SNF. Patient unsure she will accept VN at discharge. Patient
stated 'if I need PT I will go to outpatient therapy in [place]'. CM continues to be available to patient/family and is monitoring medical plan for needs at discharge.
Plan: Discharge plan is for home with possible VN/PT/OT if patient will agree.
[2025-06-16] MEDS: NOVOLOG FLEXPEN-LOW RESISTANCE 1 UNITS SC (13:02)
--- NOTE | 2025-06-16 14:32 | PTCARENOTE ---
Care provided throughout the morning. Assessment and interventions documented. Pt transferred to 3rd floor after giving verbal report to RN
--- NOTE | 2025-06-16 14:37 | PTCARENOTE ---
Addendum entered by Marybel Mullen RN 06/16/25 14:39:
Pt denies any form of discomfort in this area. Denies any type of abuse. No discomfort noted when pt provided with analy care.
Original Note:
Linear open/crack in perineum skin area at pt's posterior vaginal, Dr. Colón notified and he assessed on morning rounds. Instructed to use Antifungal powder and barrier cream to area
--- NOTE | 2025-06-16 15:21 | PTCARENOTE ---
Pt transferred from IMU to [facility] in room 326. Pt alert and oriented, staff pulled her over to the bed from stretcher, all belongings came with her, telemetry placed on pt, vitals taken, call cazares with in reach.
[2025-06-16 17:39] LABS: Glucose - Point of Care 296 mg/dl (70-99)
[2025-06-16] MEDS: NOVOLOG FLEXPEN-LOW RESISTANCE 3 UNITS SC (17:40)
[2025-06-16] MEDS: FLUSH (NSS) 2 FLUSH IV (17:45)
[2025-06-16] MEDS: SENOKOT-S PO ×2 (20:13→20:27)
[2025-06-16 22:26] LABS: Glucose - Point of Care 150 mg/dl (70-99)
[2025-06-16] MEDS: MELATONIN 5 MG PO (22:36)
[2025-06-16] MEDS: LIPITOR 20 MG PO (22:36)
[2025-06-17] MEDS: STERILE WATER FOR INJECTION 10 ML IV ×2 (01:56→09:40)
[2025-06-17] MEDS: MERREM 500 MG IV ×2 (01:56→09:42)
[2025-06-17 03:00] VITALS: BP 136/52
[2025-06-17] MEDS: SYNTHROID 175 MCG PO (05:57)
[2025-06-17 06:00] VITALS: BMI 31.6
[2025-06-17 06:31] LABS: Hematocrit 40.8 % (37.0-47.0); Hemoglobin 12.9 g/dL (12.0-16.0); Mean Corp Hgb Conc. 31.6 g/dL (33.0-37.0); Mean Corpuscular Volume 86.3 fL (81.0-99.0); Platelet Count 191 10^3/uL (130-400); Red Cell Dist. Width 17.2 % (11.5-14.5)
[2025-06-17 06:45] LABS: Blood Urea Nitrogen 16 mg/dl (7-17); Calcium 9.3 mg/dl (8.4-10.2); Carbon Dioxide 37 mmol/L (22-30); Chloride 100 mmol/L (98-107); Estimated Creatinine Clearance 58 ml/min; Glucose 146 mg/dl (70-99); Potassium 3.4 mmol/L (3.5-5.1); Sodium 143 mmol/L (135-145); eGFR 55.07
[2025-06-17 07:29] VITALS: BP 107/73
[2025-06-17 08:09] LABS: Glucose - Point of Care 185 mg/dl (70-99)
[2025-06-17] MEDS: BUMEX 2 MG PO (09:35)
[2025-06-17] MEDS: MAGNESIUM OXIDE 500 MG PO (09:35)
[2025-06-17] MEDS: ZOLOFT 50 MG PO (09:36)
[2025-06-17] MEDS: NEURONTIN 300 MG PO ×2 (09:36→20:19)
[2025-06-17] MEDS: ELIQUIS 5 MG PO ×2 (09:36→20:19)
[2025-06-17] MEDS: SENOKOT-S PO ×3 (09:36→20:21)
[2025-06-17] MEDS: FEOSOL 325 MG PO ×3 (09:36→22:14)
[2025-06-17] MEDS: ASPIR LOW (ENTERIC COATED) 81 MG PO (09:36)
[2025-06-17] MEDS: MIRALAX PO ×2 (09:37→09:57)
[2025-06-17] MEDS: KCL 40 MEQ PO ×2 (09:39→12:50)
[2025-06-17] MEDS: DESENEX/MITRAZOL/ZEASORB 1 APPLIC TOPICAL ×2 (09:39→20:20)
[2025-06-17] MEDS: LANTUS 0.08 UNITS SC (09:47)
[2025-06-17] MEDS: NOVOLOG FLEXPEN-LOW RESISTANCE 1 UNITS SC (09:48)
[2025-06-17 11:54] VITALS: BP 145/70
[2025-06-17 12:03] LABS: Glucose - Point of Care 212 mg/dl (70-99)
[2025-06-17] MEDS: NOVOLOG FLEXPEN-LOW RESISTANCE 2 UNITS SC ×2 (12:52→20:19)
--- NOTE | 2025-06-17 13:42 | W.PN.ID1 ---
Date of Service
Date of Service: June 17, 2025
Today's Communication
Transition meropenem (d4) to Ertapenem 1g IV q24 through 06/23.
Infusion sheet submitted to case packer and sealer.
Assessment / Plan
# MDR-ESBL Klebsiella complicated UTI
# Urinary retention resolving
# Metabolic encephalopathy improving
- Ucx: Klebsiella pneumoniae - treat as ESBL Klebsiella (+ 05/22 Ucx)
-Renal US: no right hydro; left kidney not visualized due to patient positioning
- Transition meropenem (d4) to Ertapenem 1g IV q24 through 06/23.
- Place midline
- Infusion sheet submitted to case packer and sealer.
- Contact precaution
# Coag-neg staph bacteremia 1 of 2 sets
- Contaminant
- repeat blood cx's negative
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
Diabetes mellitus
Hypertension
Dyslipidemia
Hypothyroidism
CHF
CVA
Atrial fibrillation
Multiple sclerosis, no longer on Copaxone
Anxiety/depression
CKD3b
hx John's gangrene s/p I+D right abd/perineum 2016
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
Left parietal brain resection/biopsy
Left wrist fracture
Chief Complaint
-: UTI
Subjective / Review of Systems
Continues to feel better.
Vital Signs / Physical Exam
Vital Signs
Vital Signs
Temp Pulse Resp BP Pulse Ox
97.7 F 62 16 145/70 98
06/17/25 11:54 06/17/25 11:54 06/17/25 11:54 06/17/25 11:54 06/17/25 11:54
Physical Exam
Constitutional: Comfortable
Cardiovascular: Regular Rate and S1/S2
Pulmonary: Clear
Gastrointestinal: Soft, Non Tender and Non Distended
Neurological: AO x 3
Objective Data
Lab Data
Lab Results
06/17/25 05:47
06/17/25 05:47
Estimated Creat Clear 58 ml/min 06/17/25 05:47
Lactic Acid Cancelled 06/13/25 20:00
Total Bilirubin 0.8 mg/dl (0.2-1.3) 06/13/25 15:53
AST 18 U/L (14-36) 06/13/25 15:53
ALT 13 U/L (0-35) 06/13/25 15:53
Alkaline Phosphatase 92 U/L (38-126) 06/13/25 15:53
Most recent labs reviewed.
Micro Results:
06/15/25 04:16 Blood Culture - Preliminary
Blood/Venous No Growth in 48 hours- Final report to follow
06/15/25 04:25 Blood Culture - Preliminary
Blood/Venous No Growth in 48 hours- Final report to follow
06/13/25 16:15 Blood Culture - Preliminary
Blood/Venous No Growth in 72 hours- Final report to follow
06/13/25 16:15 Blood Culture - Preliminary
Blood/Venous Coagulase neg. staphylococcus
Additional testing on request
Gram Stain - Preliminary
06/13/25 16:25 Urine Culture - Final
Urine Klebsiella pneumoniae
06/13/25 CXR: Findings suggest mild interstitial pulmonary edema.
--- NOTE | 2025-06-17 14:16 | W.PN.HOSP.TC ---
Addendum entered and electronically signed by Khanh Ford MD 06/18/25 13:32:
Dont use billing under this note -Use discharge summary instead
Addendum entered and electronically signed by Khanh Ford MD 06/17/25 14:21:
SInce non-visualization of L kidney in pt with UTI and MICHEAL - re-atmpt US. If still neg - CT
Original Note:
Today's Communication/Plan
-
arrange home infusion and Dc - CM aware
Assessment / Plan
Assessment / Plan
65yo F with PMHx of COPD with chronic hypoxic respiratory failure on 2L hoem O2, Afib, CHF, DM, anxiety/depression came with weakness and confusion, managed for ESBL UTI
A/P:
#UTI with acute metabolic encephalopathy
Mentation much improving as per on 06/17/25
Mentation improve
ESBL Klebsiella
ID followed - Merrem while inpatient, Ertapenem until 06/23/25
Midline to be placed
CM for home infusions as patient declined SNF
#Coag.neg bactera in 1 set of Bcx
contaminant as per ID
repeated Bcx neg
#Hypothyroidism
TSH elevated- increased Synthroid to 175mcg daily
Repwat TFT in 3-4 weeks with PCP
#DM type 2 with neuropathy
Accuchecks, Insulin SS, DM diet
cont BAsal/bolus
#Chronic bradycardia
#Paroxysmal AFIB
Cardio followed: amio reduced
cont Eliquis
Telelemtry
she should f/u with home vp medical
No need for PPM as per card
#HLD
#Hx of CVA
#Hx of fornier gangrene
#L parietal brain resection
#Anxiety./depression
#MS not on meds
#Essential HTN
#Chronic hypokalemia
#Chronic HFpEF
cont home meds
DVT ppx ELiquis
FUll code
I have spent at least 57min reviewing chart, test results, communication with consultants and providing direct patient care
Anticipated Discharge: Within 24 hours
Subjective/Interval History
-
Date of Service: June 17, 2025
Objective Data
-
Labs:
Laboratory Results
06/17/25
05:47
WBC 8.1
Hgb 12.9
Hct 40.8
Plt Count 191
Sodium 143
Potassium 3.4 L
Chloride 100
Carbon Dioxide 37 H
BUN 16
Creatinine 1.1 H
Glucose 146 H
Calcium 9.3
Vital Signs:
Vital Signs
Temp Pulse Resp BP Pulse Ox
97.7 F 62 16 145/70 98
06/17/25 11:54 06/17/25 11:54 06/17/25 11:54 06/17/25 11:54 06/17/25 11:54
I&O
06/16/25 06/17/25 06/18/25
06:59 06:59 06:59
Intake Total 1000 / 1000 120 / 120
Output Total 450 / 450 200 / 200
Balance 550 / 550 -80 / -80
Review of Systems
-
History Source: Patient
All other systems: Reviewed and negative
Physical Exam
-
General: No Apparent Distress
Respiratory: Clear to Auscultation
GI: Soft, Nontender and Nondistended
Musculoskeletal: No Clubbing, No Cyanosis and No Edema
Neuro: Awake, Alert, Oriented and AO x 3
Psych: Calm
--- NOTE | 2025-06-17 14:26 | CM ---
Pt is refusing SNF despite therapy recommendation for same. Pt will need IV abx, Referral sent to [facility] and spoke with Issa who will review the clinical information and obtain the pricing from pt's insurance plan.
CM to follow up with patient once pricing is known. If cost is prohibitive, will further discuss SNF with IV abx.
Issa from [facility] will come to the hospital to provide teaching. Referral sent to [facility] for nursing support as well as PT/OT.
[2025-06-17 15:23] VITALS: BMI 31.6
[2025-06-17] MEDS: INVANZ 60 MG IV (15:34)
[2025-06-17 16:04] VITALS: BP 143/61
[2025-06-17 16:38] LABS: Glucose - Point of Care 162 mg/dl (70-99)
[2025-06-17 19:00] VITALS: BP 162/77
[2025-06-17 20:19] LABS: Glucose - Point of Care 202 mg/dl (70-99)
[2025-06-17 21:04] LABS: Glucose - Point of Care 176 mg/dl (70-99)
[2025-06-17] MEDS: MELATONIN 5 MG PO (22:14)
[2025-06-17] MEDS: LIPITOR 20 MG PO (22:14)
[2025-06-17 23:00] VITALS: BP 111/55
[2025-06-18 03:00] VITALS: BP 151/66
[2025-06-18 04:45] LABS: Hematocrit 38.9 % (37.0-47.0); Hemoglobin 12.2 g/dL (12.0-16.0); Mean Corp Hgb Conc. 31.4 g/dL (33.0-37.0); Mean Corpuscular Volume 85.7 fL (81.0-99.0); Platelet Count 206 10^3/uL (130-400); Red Cell Dist. Width 17.2 % (11.5-14.5)
[2025-06-18 05:08] LABS: Blood Urea Nitrogen 20 mg/dl (7-17); Calcium 9.5 mg/dl (8.4-10.2); Carbon Dioxide 37 mmol/L (22-30); Chloride 99 mmol/L (98-107); Estimated Creatinine Clearance 49 ml/min; Glucose 148 mg/dl (70-99); Potassium 3.9 mmol/L (3.5-5.1); Sodium 141 mmol/L (135-145); eGFR 45.07
[2025-06-18] MEDS: SYNTHROID 175 MCG PO (05:58)
[2025-06-18 06:00] VITALS: BMI 30.6
[2025-06-18 07:41] VITALS: BP 137/66
[2025-06-18 07:55] LABS: Glucose - Point of Care 185 mg/dl (70-99)
[2025-06-18] MEDS: MAGNESIUM OXIDE 500 MG PO (08:00)
[2025-06-18] MEDS: LANTUS 0.08 UNITS SC (08:00)
[2025-06-18] MEDS: BUMEX 2 MG PO (08:00)
[2025-06-18] MEDS: NEURONTIN 300 MG PO (08:01)
[2025-06-18] MEDS: FEOSOL 325 MG PO (08:01)
[2025-06-18] MEDS: ZOLOFT 50 MG PO (08:01)
[2025-06-18] MEDS: ASPIR LOW (ENTERIC COATED) 81 MG PO (08:01)
[2025-06-18] MEDS: KCL 40 MEQ PO (08:03)
[2025-06-18] MEDS: ELIQUIS 5 MG PO (08:03)
[2025-06-18] MEDS: SENOKOT-S PO (08:03)
[2025-06-18] MEDS: MIRALAX PO (08:03)
[2025-06-18] MEDS: DESENEX/MITRAZOL/ZEASORB 1 APPLIC TOPICAL (08:04)
[2025-06-18] MEDS: NOVOLOG FLEXPEN-LOW RESISTANCE 1 UNITS SC (09:52)
--- NOTE | 2025-06-18 10:05 | CM ---
CM spoke with Issa at [facility]. They are awaiting cost for IV abx.
[facility] referral accepted for services, as well.
Plan: Pt will return home with [facility] and [facility]. Awaiting pricing to further discuss with patient.
[2025-06-18 11:17] VITALS: BP 134/80
--- NOTE | 2025-06-18 11:40 | W.PN.HOSP.TC ---
Today's Communication/Plan
-
pending home infusion services arranged by CM
Assessment / Plan
Assessment / Plan
65yo F with PMHx of R BKA, COPD with chronic hypoxic respiratory failure on 2L hoem O2, Afib, CHF, DM, anxiety/depression came with weakness and confusion, managed for ESBL UTI. Recommended Ertapenem till 06/23/25, midline placed and CM working on
home infusions. and patient willing to be d/c home
A/P:
#UTI with acute metabolic encephalopathy
Mentation much improving as per on 06/17/25
Mentation improve
ESBL Klebsiella
ID followed - Merrem while inpatient, Ertapenem until 06/23/25
Midlineplaced,
CM is working on home infusions as patient declined SNF
#Coag.neg bactera in 1 set of Bcx
contaminant as per ID
repeated Bcx neg
#Hypothyroidism
TSH elevated- increased Synthroid to 175mcg daily
Repeat TFT in 3-4 weeks with PCP
#DM type 2 with neuropathy
Accuchecks, Insulin SS, DM diet
cont BAsal/bolus
#Chronic bradycardia
#Paroxysmal AFIB
Cardio followed: amio reduced
cont Eliquis
Telelemtry
she should f/u with home communications administrator
No need for PPM as per card
#HLD
#Hx of CVA
#Hx of fornier gangrene
#L parietal brain resection
#Anxiety./depression
#MS not on meds
#Essential HTN
#Chronic hypokalemia
#Chronic HFpEF
cont home meds
DVT ppx ELiquis
FUll code
I have spent at least 37min reviewing chart, test results, communication with consultants and providing direct patient care
Anticipated Discharge: Within 24 hours
Subjective/Interval History
-
Date of Service: June 18, 2025
Objective Data
-
Labs:
Laboratory Results
06/18/25
04:30
WBC 7.0
Hgb 12.2
Hct 38.9
Plt Count 206
Sodium 141
Potassium 3.9
Chloride 99
Carbon Dioxide 37 H
BUN 20 H
Creatinine 1.3 H
Glucose 148 H
Calcium 9.5
Vital Signs:
Vital Signs
Temp Pulse Resp BP Pulse Ox
98.3 F 67 16 134/80 96
06/18/25 11:17 06/18/25 11:17 06/18/25 11:17 06/18/25 11:17 06/18/25 11:17
I&O
06/17/25 06/18/25 06/19/25
06:59 06:59 06:59
Intake Total 120 / 120 120 / 120
Output Total 200 / 200
Balance -80 / -80 120 / 120
Review of Systems
-
History Source: Patient
All other systems: Reviewed and negative
Physical Exam
-
General: No Apparent Distress
HEENT: Normocephalic
Cardiac: Regular Rhythm
Musculoskeletal: No Clubbing, No Cyanosis and No Edema
Neuro: Awake, Alert, Oriented and AO x 3
Psych: Calm
[2025-06-18 11:47] VITALS: BP 148/77; PULSE 65; O2SAT 97
[2025-06-18 11:47] LABS: Glucose - Point of Care 201 mg/dl (70-99)
[2025-06-18 11:53] VITALS: BP 148/77; PULSE 66; O2SAT 96
--- NOTE | 2025-06-18 13:13 | CM ---
Cost for IV abx at home per [facility] is $100/per week. Pt and aware of same. [facility] leather stitcher has taught Melodie's how to administer the IV abx. Medication will be delivered to the home later today or tomorrow
morning. Xavier notified of plan for discharge to home today.
Plan: Discharge to home with [facility] for VN and PT/OT.
[facility]
[2025-06-18] MEDS: NOVOLOG FLEXPEN-LOW RESISTANCE 2 UNITS SC (13:26)
[2025-06-18] MEDS: INVANZ 60 MG IV (13:26)
--- NOTE | 2025-06-18 13:32 | W.DCSUMMARY ---
Addendum entered and electronically signed by Khanh Ford MD 06/18/25 17:38:
#sharyn on admission on CKD stagr 3a
Original Note:
Discharge Summary
Discharge Data
Date of Admission: 06/13/25
Date of Discharge: 06/18/25
-
Pending Results: No
Hospital Course
65yo F with PMHx of R BKA, COPD with chronic hypoxic respiratory failure on 2L hoem O2, Afib, CHF, DM, anxiety/depression came with weakness and confusion, managed for ESBL UTI. Recommended Ertapenem till 06/23/25, midline placed and CM established
home infusions. Manager [address] advised to decrease Amiodarone to 100mg daily. Eliquis increased to 5mg BID. Levothyroxine also increased and patient recommended to have TFT with PCP in 2 weeks. Medcially stable for d/c home
I have spent at least 37min reviewing chart, test results, communication with consultants and providing direct patient care
Patient was managed for:
#UTI with acute metabolic encephalopathy
#Coag.neg bactera in 1 set of Bcx
#Hypothyroidism
#DM type 2 with neuropathy
#Chronic bradycardia
#Paroxysmal AFIB
#HLD
#Hx of CVA
#Hx of fornier gangrene
#L parietal brain resection
#Anxiety./depression
#MS not on meds
#Essential HTN
#Chronic hypokalemia
#Chronic HFpEF
Discharge Plan
-
Patient Disposition: Home with Home Care
Discharge Diagnosis/Procedures: UTI
Diet: Diabetic, Carb Controlled
Activity: As tolerated
Driving Restrictions: As prior to admission
Blood Work: BMP and TFT in 2 weeks with family doctor
Activity Restrictions/Additional Instructions:
Wound Care Instructions Left heel and ankle Wounds- Left heel and ankle. Apply no-sting barrier to scabbed area on left ankle. To open wound on heel clean with saline, apply adaptic, ABD and wrap with ben
Air bed
Turning schedule
Fiber filled boot to left heel
Referrals:
Tera Perez DO [Family Provider, Internal Medicine]
Referral Note: repeat BMP and TFT
Prescriptions:
New
magnesium oxide 500 mg magnesium Tablet
500 mg PO DAILY Qty: 30 0RF
Eliquis 5 mg Tablet
5 mg PO BID Qty: 60 0RF
Ertapenem [Invanz] 1000 MG
0.9% Sodium Chloride [Nss] 50 ML
120 mls/hr IV Q24H
Ordered By: Khanh Ford MD
Last Taken: 06/17/25 15:34 60 mls
levothyroxine 175 mcg Tablet
175 mcg PO DAILY @ 0600 Qty: 30 0RF
amiodarone 100 mg tablet
100 mg PO DAILY Qty: 30 0RF
Continued
sertraline 50 MG tablet
50 mg PO DAILY
aspirin 81 MG tablet,delayed release (DR/EC)
81 mg PO DAILY
gabapentin 300 MG capsule
300 mg PO BID
sennosides [senna] 8.6 mg Tablet
17.2 mg PO DAILYPRN PRN (Reason: constipation)
acetaminophen [Tylenol] 325 mg Tablet
975 mg PO Q8HPRN PRN (Reason: mild pain)
atorvastatin [Lipitor] 20 mg Tablet
20 mg PO HS
bumetanide 2 mg Tablet
2 mg PO DAILY
ferrous sulfate 325 mg (65 mg iron) Tablet
325 mg PO TID
albuterol sulfate 90 mcg/actuation Hfa Aerosol Inhaler
2 puff INHALATION R Q4HPRN PRN (Reason: sob)
insulin lispro [Humalog KwikPen Insulin] 100 unit/mL Insulin Pen
12 unit SC QPM
insulin lispro [Humalog KwikPen Insulin] 100 unit/mL Insulin Pen
14 unit SC DAILY
cholecalciferol (vitamin D3) [Vitamin D3] 25 mcg (1,000 unit) Tablet
25 mcg PO DAILY
insulin glargine [Lantus Solostar U-100 Insulin] 100 unit/mL (3 mL) Insulin Pen
8 unit SC DAILY
metoprolol succinate 25 mg Tablet Extended Release 24 Hr
12.5 mg PO DAILY 90 Days Qty: 45 2RF
clonazepam 0.5 mg Tablet
0.5 mg PO DAILYPRN PRN (Reason: anxiety)
amlodipine [Norvasc] 5 mg Tablet
5 mg PO DAILY
oxybutynin chloride 5 mg Tablet
5 mg PO QPM
oxycodone 5 mg Tablet
5 mg PO Q6HPRN PRN (Reason: mild pain)
Discontinued
baclofen 10 MG tablet
20 mg PO BIDPRN PRN (Reason: spasms)
levothyroxine 150 MCG tablet
150 mcg PO DAILY
amiodarone 200 mg Tablet
200 mg PO DAILY
Eliquis 2.5 mg Tablet
2.5 mg PO BID
Discharge Orders:
Discharge Patient (As Directed); Ordered 06/18/25
Ordered By: Khanh Ford
Discharge Date and Time
Print Language: YORUBA
[2025-06-18 14:34] VITALS: BP 146/77
--- NOTE | 2025-06-18 15:34 | PN.CDI ---
CDI
- -
CDI:
Physician Documentation Request
Admit Date: 06/13/25 19:49
Dear Doctor Liliana,
Please review the following and provide your response in the progress notes.
Clinical Indicators:
The diagnosis of MICHEAL was documented in progress notes 06/17 , but is not consistently noted in subsequent documentation.
Laboratory Tests
06/13/25 06/14/25 06/15/25
15:53 04:42 04:16
Creatinine 1.7 H 1.3 H 1.2 H
06/16/25 06/17/25 06/18/25
05:10 05:47 04:30
Creatinine 1.4 H 1.1 H 1.3 H
Please clarify the following:
____ - MICHEAL was present on admission
____ - MICHEAL was ruled out
____ - Other
Use of terms such as suspected, likely, concern for, or probable (associated with a specific diagnosis that is being evaluated, monitored, or treated as if it exists) are acceptable and can be coded in the inpatient setting, when documented at the
time of discharge.
Thank you,
Nelly Gordon RN, BSN
CDI Specialist
tiger text
Please use your independent medical judgment in providing your response.
--- NOTE | 2025-06-18 15:39 | PN.CDI ---
CDI
- -
CDI:
Physician Documentation Request
Admit Date: 06/13/25 19:49
Dear Doctor Liliana,
Please review the following and provide your response in the progress notes.
Clinical Indicators:
The diagnosis of ckd 3b was documented in progress notes from 06/14-06/16 but is not consistently noted in subsequent documentation.
eGFR
Laboratory Tests
06/13/25 06/14/25 06/15/25
15:53 04:42 04:16
eGFR 32.66 45.07 49.61
06/16/25 06/17/25 06/18/25
05:10 05:47 04:30
eGFR 41.24 55.07 45.07
Please clarify the following:
____ - CKD 3b is valid diagnosis
____ - CKD 3b was ruled out
____ - Other
Stages of Chronic Kidney Disease*
Level Description GFR
G1 Normal or High >90
G2 Mildly decreased 60-89
G3a Mildly to moderately decreased 45-59
G3b Moderately to severely decreased 30-44
G4 Severely decreased 15-29
G5 Kidney failure <15
Use of terms such as suspected, likely, concern for, or probable (associated with a specific diagnosis that is being evaluated, monitored, or treated as if it exists) are acceptable and can be coded in the inpatient setting, when documented at the
time of discharge.
Thank you,
Nelly Gordon RN, BSN
CDI Specialist
tiger text
Please use your independent medical judgment in providing your response.
== END 2025-06-18 14:57 | disposition home health service (06) | DRG 682 ==
LOC: 3 WEST ACU 19:49
PROVIDERS: Emergency Medicine; Internal Medicine; Physician Assistant; ADMITTING PHYSICIAN Internal Medicine; ATTENDING PHYSICIAN Internal Medicine; CONSULT PHYSICIAN Internal Medicine Infectious Disease; EMERGENCY PHYSICIAN Emergency Medicine; FAMILY PHYSICIAN Internal Medicine; OTHER PHYSICIAN Internal Medicine Cardiovascular Disease
DX: N17.9 Acute kidney failure, unspecified (principal); G93.41 Metabolic encephalopathy; N39.0 Urinary tract infection, site not specified; I13.0 Hypertensive heart and chronic kidney disease with heart failure and stage 1 through stage 4 chronic kidney disease, or unspecified chronic kidney disease; I50.32 Chronic diastolic (congestive) heart failure; J96.11 Chronic respiratory failure with hypoxia; Z16.24 Resistance to multiple antibiotics; E03.9 Hypothyroidism, unspecified; E11.22 Type 2 diabetes mellitus with diabetic chronic kidney disease; E11.40 Type 2 diabetes mellitus with diabetic neuropathy, unspecified; E78.00 Pure hypercholesterolemia, unspecified; E87.6 Hypokalemia; F32.A Depression, unspecified; F41.9 Anxiety disorder, unspecified; G35 Multiple sclerosis; I48.0 Paroxysmal atrial fibrillation; R00.1 Bradycardia, unspecified; B96.1 Klebsiella pneumoniae [K. pneumoniae] as the cause of diseases classified elsewhere; R33.8 Other retention of urine; K59.00 Constipation, unspecified; J44.9 Chronic obstructive pulmonary disease, unspecified; N18.31 Chronic kidney disease, stage 3a; I70.0 Atherosclerosis of aorta; Z79.82 Long term (current) use of aspirin; Z86.73 Personal history of transient ischemic attack (TIA), and cerebral infarction without residual deficits; Z99.81 Dependence on supplemental oxygen; Z89.511 Acquired absence of right leg below knee; Z88.0 Allergy status to penicillin; Z87.891 Personal history of nicotine dependence; Z79.899 Other long term (current) drug therapy; Z79.890 Hormone replacement therapy; Z79.01 Long term (current) use of anticoagulants; Z79.4 Long term (current) use of insulin; Z11.52 Encounter for screening for COVID-19
CPT/HCPCS: 51701; 70450; 71046; 76775; 80048; 80053; 80061; 81003; 81015; 82570; 82805; 82962; 83605; 83735; 83880; 84300; 84439; 84443; 84484; 85025; 85027; 87040; 87077; 87086; 87150; 87186; 87205; 87811; 92610; 93005; 93306; 96361; 96374; 97116; 97163; 97167; 97530; 97535; 99285; J1335

== ENCOUNTER 2025-06-26 02:48 | Inpatient (IN) | payer MEDICARE, SELFPAY ==
[2025-06-25 22:37] VITALS: BP 83/59
[2025-06-25 22:41] VITALS: BP 83/64
[2025-06-25 22:46] VITALS: BMI 34.7
[2025-06-25 22:59] LABS: Hematocrit 36.3 % (37.0-47.0); Hemoglobin 11.7 g/dL (12.0-16.0); Mean Corp Hgb Conc. 32.2 g/dL (33.0-37.0); Mean Corpuscular Volume 84.4 fL (81.0-99.0); Nucleated Red Blood Cells % 0 %; Platelet Count 250 10^3/uL (130-400); Red Cell Dist. Width 16.6 % (11.5-14.5)
[2025-06-25 23:13] LABS: ALT (SGPT) 18 U/L (0-35); AST (SGOT) 27 U/L (14-36); Albumin 3.8 g/dl (3.5-5.0); Alkaline Phosphatase 92 U/L (38-126); Blood Urea Nitrogen 20 mg/dl (7-17); Calcium 9.2 mg/dl (8.4-10.2); Carbon Dioxide 26 mmol/L (22-30); Chloride 105 mmol/L (98-107); Estimated Creatinine Clearance 46 ml/min; Glucose 170 mg/dl (70-99); Potassium 3.3 mmol/L (3.5-5.1); Sodium 142 mmol/L (135-145); Total Protein 6.8 g/dl (6.3-8.2); eGFR 41.24
[2025-06-25 23:16] VITALS: BP 80/58
[2025-06-25 23:30] VITALS: BP 90/61
[2025-06-25 23:31] VITALS: BP 84/58
[2025-06-25 23:45] VITALS: BP 93/64
[2025-06-26] VITALS (30 sets, daily range): BP systolic 81–160; BP diastolic 59–99; PULSE 62–64; O2SAT 95; BMI 34.7; BMI 33.4
[2025-06-26 00:27] LABS: Urine Character Clear (Clear)
--- NOTE | 2025-06-26 01:12 | ED.GENMED ---
History of Present Illness
General
Chief Complaint: Fall
Source: patient and family
Exam Limitations: none
Time Seen by Provider: 06/25/25 22:45
Nursing documentation reviewed up to this point in time: agreed with
History of Present Illness
History of Present Illness:
Note:
CHIEF COMPLAINT(S)
Fall with subsequent change in mental status.
HISTORY OF PRESENT ILLNESS
The patient is a 65-year-old female with a recent discharge from the hospital after being treated for a urinary tract infection. She was previously in the intensive care unit. The patients reported a fall from bed, where blood was noticed on
the bed. She is typically oriented to person, place, time, and situation, but currently presents with altered mental status, being only oriented to person. The patient described hitting her head. Her blood pressure was noted to be slightly low.
Oxygen saturation levels required assessment and possible supplemental oxygen due to the recent fall and current health status.
PAST SURGICAL HISTORY
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
PHYSICAL EXAM
General: Alert, mild hypotension present.
Eyes, Ears, Nose, Mouth, and Throat: Oral mucosa moist.
Neck: Reports pain, supple, trachea midline.
Musculoskeletal: Abrasion on toes, below knee amputation on the right leg.
Neurological: Alert and oriented to person, unable to orientate to other contexts as usual.
Psychiatric:alert oriented
PROBLEM LIST
Acute problems: Fall with neck pain, altered mental status, mild hypotension.
PLAN
A computed tomography (CT) scan will be performed to assess potential injuries from the fall. Blood tests will be drawn to evaluate her current medical condition and to check for possible causes of her altered mental status. Supplemental oxygen
administration may be initiated if deemed necessary.
DIFFERENTIAL DIAGNOSIS
The Differential Diagnosis includes, in no particular order and is not limited to:
1. Traumatic head injury
2. Postural hypotension
3. Cerebrovascular accident
4. Sepsis
5. Urinary tract infection leading to altered mental status
6. Electrolyte imbalance
7. Dehydration
8. Medication effect
9. Pulmonary embolism
10. Myocardial infarction
CARE-UPDATE
06/26/25 - 01:15
Patient remains hemodynamically unstable with persisting hypotension and lactic acidosis. Further evaluation still required to clarify etiology. Imaging results: CT head showed no acute findings and chest x-ray revealed mild interstitial edema but
no acute changes or focal infection. Continue monitoring cardiovascular status and consider potential metabolic causes.
EKG
My independent EKG interpretation is:
- Time of EKG: Not specified
- Rhythm: Sinus bradycardia
- Heart rate: 49 bpm
- [place] interval: First-degree AV block
- [place]: Left axis deviation
No Heading
[object Object]
Disposition:
SUMMARY OF ENCOUNTER
The patient, a 65-year-old female, was seen in the emergency department due to a fall from bed resulting in a subsequent change in mental status. She presented with altered mental status, being oriented only to person, and mild hypotension. The
patient has a history of urinary tract infection for which she was recently hospitalized, and noted changes in mental orientation. Imaging showed no acute findings, but there were signs of mild interstitial edema with no acute changes or focal
infection. Management in the emergency department included a CT scan to assess potential injuries, and blood tests to evaluate possible causes for altered mental status.
PLAN
A computed tomography (CT) scan was performed to assess potential injuries from the fall. A series of blood tests will be drawn to evaluate her current medical condition and to check for possible causes of her altered mental status. Supplemental
oxygen administration may be initiated if deemed necessary.
INDEPENDENT REVIEW OF LABS AND INTERPRETATION OF TESTS
- My independent interpretation of the CT scan showed no acute findings.
- My independent interpretation of the chest x-ray revealed mild interstitial edema but no acute changes or focal infection.
- My independent EKG interpretation is sinus bradycardia with a heart rate of 49 bpm, first-degree AV block, and left axis deviation. There is a non-specific intraventricular conduction block and left ventricular hypertrophy noted. Comparison with a
prior EKG showed no changes.
MEDICAL DECISION MAKING
-Complexity of Data Reviewed: Chronic conditions affecting care, including recent urinary tract infection and right leg amputation. Differential Diagnoses include traumatic head injury, postural hypotension, cerebrovascular accident, sepsis, urinary
tract infection leading to altered mental status, electrolyte imbalance, dehydration, medication effect, pulmonary embolism, and myocardial infarction.
-Data:
Category 1
- Clinical information obtained from the patients as an independent historian.
- My independent interpretation of CT imaging, chest x-ray, and EKG.
DIAGNOSIS
1. Fall
2. Altered mental status (ICD-10: R41.82)
3. Hypotension (ICD-10: I95.9)
4. Lactic acidosis (ICD-10: E87.2)
Past History
Past History
ED Past Medical History: CVA, HTN, Hypercholesterolemia, NIDDM and Other (brain lesion, Fournge's gangrene)
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
Social History
Tobacco: Non-smoker
Alcohol: None
Drug: None
Personal:
Living: with family
Employment: Other
Family History
Family History: Other
Phy Exam
Physical Exam
Physical Exam:
.
Course
Orders/Labs/Results
Orders:
Orders
06/25/25 22:47
CT Head W/o Iv Contrast Urgent
Comment:
Reason For Exam: fall, hit head
Urinalysis Reflex To Culture Urgent
Date Specimen was Collected: 06/26/25
Time Specimen was Collected: 00:05
06/25/25 22:51
Complete Blood Count/With Diff Urgent
Comprehensive Metabolic Panel Urgent
Lactic Acid Q4H
Comment: CANCEL 2nd LACTIC ACID IF 1st LACTIC ACID IS LESS THAN 2
06/25/25 23:00
Blood Culture Q30M
LIZZY Source: Blood/Venous
Specimen Description:
06/25/25 23:28
Electrocardiogram (*1) Urgent
Reason for Study: Bradycardia / Tachycardia
EKG- Treatment ONCE
06/25/25 23:30
Blood Culture Q30M
LIZZY Source: Blood/Venous
Specimen Description:
06/25/25 23:48
0.9% Sodium Chloride 1000 ml [Nss] 1,000 ml IV BOLUS
06/26/25 00:08
Urine Microscopic Reflex Cult Urgent
06/26/25 00:45
CR Chest Portable - 1 View Urgent
Comment:
Reason For Exam: hypotension, elevated lactate
Reason Study Needs to be Portable: Patient Unstable
06/26/25 03:00
Lactic Acid Q4H
Comment: CANCEL 2nd LACTIC ACID IF 1st LACTIC ACID IS LESS THAN 2
Abnormal Lab Results
06/25/25 06/26/25
22:51 00:08
Hgb 11.7 L g/dL
(12.0-16.0)
Hct 36.3 L %
(37.0-47.0)
MCHC 32.2 L g/dL
(33.0-37.0)
RDW 16.6 H %
(11.5-14.5)
Absolute Monos (auto) 0.7 H 10^3/uL
(0.1-0.6)
Potassium 3.3 L mmol/L
(3.5-5.1)
BUN 20 H mg/dl
(7-17)
Creatinine 1.4 H mg/dL
(0.6-1.0)
Glucose 170 H mg/dl
(70-99)
Lactic Acid 3.8 H mmol/L
(0.7-2.0)
Urine Albumin (Reflex) 2+ A
(Neg - Trace)
06/25/25 22:51
06/25/25 22:51
Vital Signs
Initial and Last Documented VS:
Initial Vital Signs
Temp Pulse Resp BP Pulse Ox
98.7 F 60 12 83/59 91
06/25/25 22:37 06/25/25 22:37 06/25/25 22:37 06/25/25 22:37 06/25/25 22:37
Last Documented Vital Signs
Temp Pulse Resp BP Pulse Ox
98.7 F 50 15 107/69 89
06/25/25 22:37 06/26/25 00:45 06/26/25 00:45 06/26/25 00:45 06/26/25 00:45
*Pulse Oximetry
SaO2: 89
Oxygen Mode of Delivery: Room air
Patient hypoxic: yes
*Critical Care Note
Total Time (30-74mins, 75-104mins- exclusive of procedures): 35 (Critical care statement: A total of 35 minutes of critical care time was provided for this patient. This includes management of unstable vital signs, evaluation of the patient at
bedside, reviewing the patient's pertinent medical records, discussion with consultants, review of old EKGs and review of)
ED Attending Note
-
Portions of this chart may have been created with voice recognition software.� Occasional wrong word or��sound alike� substitutions may have occurred due to the inherent limitations of voice recognition software.
Discharge Plan
Departure
Patient Disposition: Admit
Date of Disposition: 06/26/25
Time of Disposition: 01:19
Admit to: IMU
Presentation/result/management discussed w/ accepting MD/DO: Hospitalist
Patient with high blood pressure during this ER visit?: No
Condition: Fair
Discharge Problem:
Fall, Hypotension, Acidosis, lactic
Prescriptions:
No Action
sertraline 50 MG tablet
50 mg PO DAILY
aspirin 81 MG tablet,delayed release (DR/EC)
81 mg PO DAILY
gabapentin 300 MG capsule
300 mg PO BID
sennosides [senna] 8.6 mg Tablet
17.2 mg PO DAILYPRN PRN (Reason: constipation)
acetaminophen [Tylenol] 325 mg Tablet
975 mg PO Q8HPRN PRN (Reason: mild pain)
atorvastatin [Lipitor] 20 mg Tablet
20 mg PO HS
bumetanide 2 mg Tablet
2 mg PO DAILY
ferrous sulfate 325 mg (65 mg iron) Tablet
325 mg PO TID
albuterol sulfate 90 mcg/actuation Hfa Aerosol Inhaler
2 puff INHALATION R Q4HPRN PRN (Reason: sob)
insulin lispro [Humalog KwikPen Insulin] 100 unit/mL Insulin Pen
12 unit SC QPM
insulin lispro [Humalog KwikPen Insulin] 100 unit/mL Insulin Pen
14 unit SC DAILY
cholecalciferol (vitamin D3) [Vitamin D3] 25 mcg (1,000 unit) Tablet
25 mcg PO DAILY
insulin glargine [Lantus Solostar U-100 Insulin] 100 unit/mL (3 mL) Insulin Pen
8 unit SC DAILY
metoprolol succinate 25 mg Tablet Extended Release 24 Hr
12.5 mg PO DAILY 90 Days Qty: 45 2RF
clonazepam 0.5 mg Tablet
0.5 mg PO DAILYPRN PRN (Reason: anxiety)
amlodipine [Norvasc] 5 mg Tablet
5 mg PO DAILY
oxybutynin chloride 5 mg Tablet
5 mg PO QPM
oxycodone 5 mg Tablet
5 mg PO Q6HPRN PRN (Reason: mild pain)
magnesium oxide 500 mg magnesium Tablet
500 mg PO DAILY Qty: 30 0RF
Eliquis 5 mg Tablet
5 mg PO BID Qty: 60 0RF
levothyroxine 175 mcg Tablet
175 mcg PO DAILY @ 0600 Qty: 30 0RF
amiodarone 100 mg tablet
100 mg PO DAILY Qty: 30 0RF
Referrals:
Tera Perez DO [Family Provider, Internal Medicine]
Interventions
Interventions:
*Risk Screen - Suicide Last Done: 06/25/25 22:43
*General Assessment Last Done: 06/25/25 22:43
*Neglect/Abuse Screening Last Done: 06/25/25 22:43
*ED- Fall Risk Assessment Last Done: 06/25/25 22:43
*ED COVID-19 Vaccine History Last Done: 06/25/25 22:43
ED-Musculoskeletal Assessment Last Done: 06/25/25 22:43
ED- Neurological Assessment Last Done: 06/25/25 22:43
ED-Skin Assessment Last Done: 06/25/25 22:43
Discharge Date and Time
Print Language: TURKISH
[2025-06-26] MEDS: LR 2000 IV (01:24)
--- NOTE | 2025-06-26 02:30 | HPS.HSE ---
Family Physician
-
Family Physician: Tera Perez
Chief Complaint
-
Fall at Home
History of Present Illness
Patient is a 65y F with PMH significant for A-Fib, CHF, DM-II and recent hospitalization for UTI / encephalopathy who presents to ED complaining of fall at home. reportedly found patient on the floor next to the bed. Patient states that
she has felt very weak for the past 2-3 days. She states that she did strike her head on the floor upon falling from bed. She denies any LOC. She denies any chest pain, palpitations, SOB. No N/V/D.
Patient completed course of ertapenem on 06/23/25 for Klebsiella UTI. Her midline has since been removed. She states that she has had no issues with urination.
No other focal complaints / concerns.
At the time of my examination patient is pale-appearing and complains of feeling extremely tired.
She denies any new medications since her recent discharge.
Medical History
Past Medical History
Past Medical History: Reports Other
Additional Past Medical History:
Hypothyroidism
DM-II
Paroxysmal A-Fib with Chronically Slow Rates
ASCVD / Prior CVA
Chronic HFpEF
Hypertension
Multiple Sclerosis (not currently on medication)
Anxiety / Depression
COPD with Chronic Hypoxemic Respiratory Failure
Obesity
John's Gangrene
Past Surgical History: Reports Other
Additional Past Surgical History:
Right BKA
Shoulder Surgery
Perineum I&D
Left Parietal Biopsy
Social History
Tobacco: Former Smoker (45 pack-years)
Alcohol: Former (No alcohol in 20+ years)
Drug: None
Personal:
Living: With Family
Family History
Family History: Cancer (unspecified) and Diabetes
Allergies / Home Medications
Allergies reflects when Allergies were last updated in [facility].
Home Medications with original date entered in [facility]
Allergy/Medication List:
Allergies
Allergy/AdvReac Type Severity Reaction Status Date / Time
Penicillins Allergy Hives Verified 06/25/25 22:36
Home Medications
sertraline 50 mg tablet 50 mg PO DAILY depression/anxiety 03/05/16
acetaminophen 325 mg tablet (Tylenol) 975 mg PO Q8HPRN PRN mild pain 05/21/25
albuterol sulfate 90 mcg/actuation aerosol inhaler 2 puff inhalation R Q4HPRN PRN sob 05/21/25
atorvastatin 20 mg tablet (Lipitor) 20 mg PO HS High Cholesterol 05/21/25
bumetanide 2 mg tablet 2 mg PO DAILY Fluid Retention/Swelling 05/21/25
cholecalciferol (vitamin D3) 25 mcg (1,000 unit) tablet (Vitamin D3) 25 mcg PO DAILY Supplement 05/21/25
ferrous sulfate 325 mg (65 mg iron) tablet 325 mg PO TID Supplement 05/21/25
insulin glargine 100 unit/mL (3 mL) subcutaneous pen (Lantus Solostar U-100 Insulin) 8 unit SC DAILY Diabetes 05/21/25
insulin lispro 100 unit/mL subcutaneous pen (Humalog KwikPen (U-100) Insulin) 12 unit SC QPM Diabetes 05/21/25
insulin lispro 100 unit/mL subcutaneous pen (Humalog KwikPen (U-100) Insulin) 14 unit SC DAILY Diabetes 05/21/25
sennosides 8.6 mg tablet (senna) 17.2 mg PO DAILYPRN PRN constipation 05/21/25
metoprolol succinate 25 mg tablet,extended release 24 hr 12.5 mg (1/2 x 25 mg) PO DAILY Heart disease/condition 90 days #45 tabs 05/24/25
amlodipine 5 mg tablet (Norvasc) 5 mg PO DAILY Blood Pressure 06/13/25
clonazepam 0.5 mg tablet 0.5 mg PO DAILYPRN PRN anxiety 06/13/25
oxybutynin chloride 5 mg tablet 5 mg PO QPM Urinary Issue 06/13/25
oxycodone 5 mg tablet 5 mg PO Q6HPRN PRN mild pain 06/13/25
amiodarone 100 mg tablet 100 mg PO DAILY #30 tabs 06/18/25
apixaban 5 mg tablet (Eliquis) 5 mg PO BID #60 tabs 06/18/25
levothyroxine 175 mcg tablet 175 mcg PO DAILY @ 0600 #30 tabs 06/18/25
magnesium oxide 500 mg PO DAILY #30 tabs 06/18/25
Review of Systems
-
History Source: Patient
A 12 point ROS was completed and negative except as noted: Yes
Constitutional: Reports Fatigue; Denies Fever or Chills
EENT: Denies Sore Throat
Respiratory: Denies Cough or Trouble Breathing
Cardiac: Denies Chest Pain or Palpitations
Abdomen/GI: Denies Abdominal Pain, Nausea, Vomiting or Diarrhea
: Denies Dysuria, Frequency or Flank Pain
Musculoskeletal: Denies Joint Pain or Edema
Neurological: Reports Dizzy and Weakness; Denies Headache or Numbness
Psych: Denies Depression or Anxiety
Physical Exam
Vital Signs
Vital Signs
Temp Pulse Resp BP Pulse Ox
98.7 F 52 18 111/68 91
06/25/25 22:37 06/26/25 01:45 06/26/25 01:45 06/26/25 01:45 06/26/25 01:45
Physical Exam
General: Other (Pale-appearing 65y F in no acute distress. Answers questions / follows commands but falls quickly back to sleep.)
HEENT: Moist mucous membranes and PERRLA
Respiratory: Other (Decreased at bases - L > R. Few basilar rales. No wheeze / rhonchi.)
Cardiac: S1/S2 and Regular Rhythm; No Murmur
GI: Soft, Non Tender, Non Distended and Normal Bowel Sounds
Musculoskeletal: No Clubbing, No Cyanosis and No Edema
Neuro: AO x 3 and Nonfocal/grossly intact
Laboratory Results
-
06/25/25 22:51
06/25/25:
Laboratory Results
Lactic Acid 3.8 mmol/L (0.7-2.0) H 06/25/25 22:51
Total Bilirubin 0.7 mg/dl (0.2-1.3) 06/25/25:
AST 27 U/L (14-36) 06/25/25:51
ALT 18 U/L (0-35) 06/25/25:51
Alkaline Phosphatase 92 U/L (38-126) 06/25/25:
Impression/Plan
-
A/P: Patient is a 65y F with PMH significant for hypothyroidism, A-Fib, CHF and COPD on chronic home O2 who presents to ED for evaluation s/p fall at home.
Generalized Weakness / Fall at Home
Hypotension
Bradycardia
Lactic Acidosis
Hypothyroidism
- Admit for further evaluation and treatment.
- Repeat TFTs. TSH elevated on recent admission and dose increased slightly at that time.
- Check AM cortisol.
- Hold amiodarone, amlodipine, diuretics, etc for now.
- Avoid sedating medications (clonazepam, etc)
- Monitor on telemetry.
- IVF support.
- CT head done in the ED today with no acute changes.
- Follow for clinical improvement, improvement in lactate / hemodynamics, etc.
Recent Klebsiella UTI
- Completed course of abx.
- Afebrile at present without leukocytosis, etc.
- Follow temp curve / monitor for any new symptoms or complaints.
COPD
Acute on Chronic Hypoxemic Respiratory Failure
Chronically Elevated Left Hemidiaphragm
- CXR with L hemidiaphragm elevation. No acute infiltrate, cough, fever, etc.
- Incentive spirometry, supplemental O2, nebs, etc.
Paroxysmal Atrial Fibrillation
Chronic HFpEF
- Hold chronotropic medications given bradycardia / hypotension.
- Hold diuretic regimen and follow I/Os, daily weights, etc.
- Continue Eliquis for stroke risk reduction.
CKD III
- Stable. Renal function is at / near known baseline.
- Follow for changes.
- IVF +/- pressors to avoid hypotension.
DM-II
- Stable. Continue basal insulin.
- Follow glucose and cover with SSI as needed.
History of CVA
Multiple Sclerosis - not on treatment
- No focal neurologic deficits.
DVT Prophylaxis: On Eliquis
Code Status: Full
[2025-06-26 02:41] LABS: Urine Squamous Cell 16-20 /LPF (Few)
[2025-06-26 02:42] LABS: Urine Red Blood Cell None Seen /HPF (0-2)
--- NOTE | 2025-06-26 04:30 | PTCARENOTE ---
Patient arrived from ER into room 3355. Oriented to room and use of call cazares. Pt forgetful to situation, pleasant. Bed alarm set for safety. pt is from home with and recently admitted to for UTI. appears to be able to reposition and turn
self in bed. Wound care consult placed d/t multiple areas of skin breakdown. Pt with Right BKA. Left heel/lateral ankle skin breakdown. gluteal cleft is split and open. Pt denies any pain. SB on telemetry. on 3L NC. Able to swallow Synthroid whole
with water w/o issues. Desenex powder ordered for MASD to groin/breasts. Pt on contact precautions for history of ESBL. BP WNL. Afebrile. AM labs drawn and sent. Admission questions complete. Call cazares and tray table within reach. bed alarm set.
[2025-06-26] MEDS: SYNTHROID 175 MCG PO (05:15)
[2025-06-26 05:29] LABS: Hematocrit 37.9 % (37.0-47.0); Hemoglobin 12.1 g/dL (12.0-16.0); Mean Corp Hgb Conc. 31.9 g/dL (33.0-37.0); Mean Corpuscular Volume 85.6 fL (81.0-99.0); Platelet Count 230 10^3/uL (130-400); Red Cell Dist. Width 16.7 % (11.5-14.5)
[2025-06-26 05:55] LABS: Blood Urea Nitrogen 17 mg/dl (7-17); Calcium 9.4 mg/dl (8.4-10.2); Carbon Dioxide 28 mmol/L (22-30); Chloride 105 mmol/L (98-107); Estimated Creatinine Clearance 51 ml/min; Glucose 111 mg/dl (70-99); Magnesium 1.9 mg/dl (1.6-2.3); Potassium 3.5 mmol/L (3.5-5.1); Sodium 139 mmol/L (135-145); eGFR 49.61
[2025-06-26 06:24] LABS: Cortisol, Random 12.9 ug/dl
[2025-06-26 08:00] LABS: Glucose - Point of Care 155 mg/dl (70-99)
[2025-06-26] MEDS: NOVOLOG FLEXPEN-LOW RESISTANCE 1 UNITS SC ×3 (09:50→17:58)
[2025-06-26] MEDS: ELIQUIS 5 MG PO ×2 (09:51→20:30)
[2025-06-26] MEDS: LANTUS 0.08 UNITS SC (09:51)
[2025-06-26] MEDS: DESENEX/MITRAZOL/ZEASORB 1 APPLIC TOPICAL ×2 (09:51→20:30)
--- NOTE | 2025-06-26 12:01 | PTCARENOTE ---
Pt's assessment as documented. Aox3, but confused and forgetful. SB with 1st degree heart block and prolonged QT on tele monitor. Medications administered as ordered, see JAN. Voiding on bedpan. at bedside, updated on plan of care. Pt
ringing appropriately, call cazares within reach. Bed alarm in place for safety.
[2025-06-26 12:10] LABS: Glucose - Point of Care 179 mg/dl (70-99)
[2025-06-26] MEDS: TYLENOL 650 MG PO (12:26)
--- NOTE | 2025-06-26 12:32 | W.PN.HOSP.TC ---
Today's Communication/Plan
-
Assessment / Plan
Assessment / Plan
General: No Apparent Distress, Comfortable and Conversant
HEENT: NormoCephalic, Moist mucous membranes, Atraumatic
Respiratory: Clear and Non Labored Respirations
Cardiac: S1/S2 and Regular Rhythm; No Rub or Gallop
GI: Soft, Non Tender, Non Distended and Normal Bowel Sounds
Musculoskeletal: No Edema, right BKA
Skin: Warm and dry
: NO [place]
Neuro: Awake, Alert, Nonfocal/grossly intact
Psych: Calm and cooperative, depressed affect
Ms. Toribio is a 65-year-old female with a history of HFpEF, cerebrovascular disease (prior CVA), paroxysmal A-fib, CKD stage IIIa, left parietal lobe resection, multiple sclerosis (not currently on medication, regular follow-up with her
neurologist at [facility]), COPD with chronic hypoxic respiratory failure (2 L at baseline), insulin-dependent diabetes mellitus, hypothyroidism (home Synthroid dose recently increased), and recent admission for treatment of ANN secondary to UTI (on
IV ertapenem through 06/23/2025 via midline, completed) who presented after a fall from home with head strike. She denied losing consciousness. Says she did not feel dizzy just felt generally weak and a complete lack of strength in her legs causing
her to fall. CT brain showed no acute abnormality.
Generalized weakness and fall:
- This is a recurrent problem for, apparently resistant to inpatient or home rehab which would definitely be beneficial for her
- No evidence of recurrent infection, initially had an elevated lactic acid of 3.4 which resolved within normal limits with IV fluids alone, no antibiotics, not uremic
- Electrolytes within normal limits, mild hypokalemia of 3.3 on admission now resolved
- Sensorium appears clear currently
- Was mildly bradycardic at time of admission, will hold amiodarone and metoprolol succinate
- TSH elevated with normal free T4, home Synthroid dose was recently increased during her prior admission
- AM cortisol within normal limits
- Discussed with patient this morning the importance of her participating with PT/OT and pursuing rehab after discharge if she qualifies
- Suspect there may be an element of neurodegenerative disease here, discussed with the need to pursue further evaluation for this at her next neurology appointment on July 22, 2025
- Case management consulted for assistance in arranging safe discharge considering her multiple comorbidities and recurrent falls
- Avoid overuse of sedating medications such as clonazepam although would not discontinue abruptly
- Hold oxybutynin
Hypothyroidism:
- Home Synthroid recently increased to 175 mcg daily during prior admission
- TSH still elevated at 33.9, free T4 within normal limits
- Will check T3
Paroxysmal A-fib:
- Continue anticoagulation with full-strength Eliquis
- Holding metoprolol succinate 12.5 mg daily and amiodarone 100 mg daily due to presenting bradycardia
- Continue telemetry monitoring
COPD with chronic hypoxic respiratory failure:
- No evidence of acute exacerbation
- On baseline 2 L supplemental oxygen via nasal cannula
- Albuterol nebulizers as needed
- If mental status deteriorates would check ABG
IDDM:
- At home patient uses Lantus 8 units daily, and lispro 14 units in the a.m. and 12 units at night
- Will continue Lantus 8 units daily and additional sliding scale insulin as needed
- Accu-Cheks
HFpEF:
- Chronic, currently compensated
- Holding beta-blockade due to presenting bradycardia
- She is on amlodipine 5 mg daily for blood pressure control which we will continue with holding parameters
- Continue home bumetanide 2 mg daily
DVT prophylaxis: Eliquis
CODE STATUS: Full code
Total time spent on today's encounter was 58 minutes
Anticipated Discharge: 24 - 48 hours
Subjective/Interval History
-
Date of Service: June 26, 2025
Patient was seen and examined at bedside this morning. Depressed affect, seems down and resistant to multiple care options offered including physical therapy. Patient has had multiple recent falls and her is having increasing difficulty
caring for her at home.
Objective Data
-
Labs:
Laboratory Results
06/26/25
05:10
WBC 7.8
Hgb 12.1
Hct 37.9
Plt Count 230
Sodium 139
Potassium 3.5
Chloride 105
Carbon Dioxide 28
BUN 17
Creatinine 1.2 H
Glucose 111 H
Calcium 9.4
Vital Signs:
Vital Signs
Temp Pulse Resp BP Pulse Ox
98.7 F 64 18 160/65 95
06/26/25 11:16 06/26/25 10:45 06/26/25 10:45 06/26/25 10:00 06/26/25 10:48
Review of Systems
-
History Source: Patient
All other systems: Reviewed and negative
Constitutional: Reports Weakness
Physical Exam
-
General: No Apparent Distress
--- NOTE | 2025-06-26 13:46 | WOUNDNOTE ---
GLUTEAL CLEFT 1960, [id number]
--- NOTE | 2025-06-26 13:47 | WOUNDNOTE ---
LEFT TOES 1960, [id number]
--- NOTE | 2025-06-26 13:54 | WOUNDNOTE ---
[facility] RN NOTE: Reviewed chart and met with patient. Patient known from recent admission. present during assessment and said patient follows at [facility] for left heel, left ankle and toe wounds. Please see worklist for more details and
measurements. Left heel now appears healed. Will recommend covering with silicone foam dressing for protection. Left ankle with loose fibrin, scan drainage. Left toe wounds are dry. Patient and would like to keep toe wounds open to air as
recommended by [facility]. MASD/fungal appearing noted on perineum and under breasts. Desenex powder is in use. MASD noted in gluteal cleft, will recommend use of Calazime. Patient stated she is incontinent at times. PT and OT visited for assessment after
wound assessment. Updated RN Almaz who will perform wound care. Turning schedule added to care plan. Fiber filled boot ordered for left heel. Right stump intact. Air cushion to chair. Will confirm orders with hospitalist and will follow as needed.
[2025-06-26 17:11] LABS: Glucose - Point of Care 170 mg/dl (70-99)
[2025-06-26] MEDS: LIPITOR 20 MG PO (20:31)
[2025-06-26 21:26] LABS: Glucose - Point of Care 187 mg/dl (70-99)
[2025-06-26] MEDS: KLONOPIN 0.5 MG PO (22:03)
--- NOTE | 2025-06-26 22:46 | PTCARENOTE ---
Addendum entered by Tita Love RN 06/27/25 05:29:
Pt voiding using the bedpan this AM.
Original Note:
Patient is AAOx3, although forgetful at times. SB on the monitor with prolonged QT and first degree block. HR 48. Pt 96% on 3L NC. Will attempt to wean. Pt grossly incontinent of urine, pt placed on the purewick. Generously applied moisture barrier
cream to perineum. Perineum is reddened and appears to have MASD. Desenex powder applied to groin and under b/l breasts. R BKA. L heel elevated with the green fiber filled boots. Dressings clean dry and intact. Pt tolerating frequent turning and
repositioning. Call cazares within reach. Bed alarm on.
[2025-06-27] VITALS (11 sets, daily range): BP systolic 122–162; BP diastolic 48–108; BMI 33.1
[2025-06-27] MEDS: SYNTHROID 175 MCG PO (05:15)
[2025-06-27 05:17] LABS: Hematocrit 36.3 % (37.0-47.0); Hemoglobin 11.7 g/dL (12.0-16.0); Mean Corp Hgb Conc. 32.2 g/dL (33.0-37.0); Mean Corpuscular Volume 86.4 fL (81.0-99.0); Nucleated Red Blood Cells % 0 %; Platelet Count 220 10^3/uL (130-400); Red Cell Dist. Width 16.4 % (11.5-14.5)
[2025-06-27 05:38] LABS: Blood Urea Nitrogen 14 mg/dl (7-17); Calcium 9.4 mg/dl (8.4-10.2); Carbon Dioxide 30 mmol/L (22-30); Chloride 106 mmol/L (98-107); Estimated Creatinine Clearance 55 ml/min; Glucose 110 mg/dl (70-99); Magnesium 1.8 mg/dl (1.6-2.3); Potassium 3.3 mmol/L (3.5-5.1); Sodium 139 mmol/L (135-145); eGFR 55.07
[2025-06-27 05:53] LABS: Free T3 2.02 pg/ml (2.77-5.27)
[2025-06-27 07:49] LABS: Glucose - Point of Care 204 mg/dl (70-99)
[2025-06-27] MEDS: LANTUS 0.08 UNITS SC (09:52)
[2025-06-27] MEDS: NOVOLOG FLEXPEN-LOW RESISTANCE 2 UNITS SC (09:53)
[2025-06-27] MEDS: DESENEX/MITRAZOL/ZEASORB 1 APPLIC TOPICAL ×2 (09:53→20:23)
[2025-06-27] MEDS: NORVASC 5 MG PO (09:54)
[2025-06-27] MEDS: ZOLOFT 50 MG PO (09:54)
[2025-06-27] MEDS: ELIQUIS 5 MG PO ×2 (09:54→20:23)
[2025-06-27] MEDS: KCL 40 MEQ PO (09:54)
[2025-06-27] MEDS: BUMEX 2 MG PO (11:17)
--- NOTE | 2025-06-27 11:42 | CM ---
Received referral for discharge planning. Patient's spouse expressed that patient's care has surpassed the amount of care he feels can be provided by him at home. This is her third admission in the past few months. Placed a call to patient's spouse
and he answered and was able to talk. He spoke for a while about how she requires a log of support, care, and attention. He stated that he feels that he is not able to run errands or go to appointments as she tells him that she needs him to be with
her 24 hrs. Patient's spouse stated that he is overwhelmed and frustrated and feels that she will need SNF as it has been indicated in the past during admissions. He [facility] and has stayed there before
as he is a jose.
Patient and his are from [facility]. Patient's spouse stated that patient uses a walker, w/c and needs assistance with all ADLs. He does all of the cooking, cleaning and insurance special agent as well as taking care of her. He confirmed that he has
in the past met with the elementary school social worker at [place] due to some financial concerns and has mentioned to her that he feels that patient needs rehab.
Plan: Case management will continue to follow and assist with discharge planning. Patient's spouse hopeful for [facility]. Referral sent.
[2025-06-27 12:01] LABS: Glucose - Point of Care 189 mg/dl (70-99)
[2025-06-27] MEDS: NOVOLOG FLEXPEN-LOW RESISTANCE 1 UNITS SC ×2 (13:03→17:51)
--- NOTE | 2025-06-27 14:54 | W.PN.HOSP.TC ---
Today's Communication/Plan
-
Assessment / Plan
Assessment / Plan
General: No Apparent Distress, Comfortable and Conversant
HEENT: NormoCephalic, Moist mucous membranes, Atraumatic
Respiratory: Clear and Non Labored Respirations
Cardiac: S1/S2 and Regular Rhythm; No Rub or Gallop
GI: Soft, Non Tender, Non Distended and Normal Bowel Sounds
Musculoskeletal: No Edema, right BKA
Skin: Warm and dry
: NO Davis
Neuro: Awake, Alert, Nonfocal/grossly intact
Psych: Calm and cooperative
Ms. Toribio is a 65-year-old female with a history of HFpEF, cerebrovascular disease (prior CVA), paroxysmal A-fib, CKD stage IIIa, left parietal lobe resection, multiple sclerosis (not currently on medication, regular follow-up with her
neurologist at [facility]), COPD with chronic hypoxic respiratory failure (2 L at baseline), insulin-dependent diabetes mellitus, hypothyroidism (home Synthroid dose recently increased), and recent admission for treatment of ANN secondary to UTI (on
IV ertapenem through 06/23/2025 via midline, completed) who presented after a fall from home with head strike. She denied losing consciousness. Says she did not feel dizzy just felt generally weak and a complete lack of strength in her legs causing
her to fall. CT brain showed no acute abnormality.
Generalized weakness and fall:
- This is a recurrent problem for her
- PT/OT recommending SNF which I strongly agree with, however patient is very resistant to this idea, I do not feel her is adequately equipped to care for at home by himself although he is motivated to do so
- No evidence of recurrent infection, initially had an elevated lactic acid of 3.4 which resolved within normal limits with IV fluids alone, no antibiotics, not uremic
- Electrolytes within normal limits, mild hypokalemia of 3.3 which has been repleted
- Sensorium appears clear currently
- Presenting symptoms could possibly to be due to bradycardia, she was mildly bradycardic at time of admission, held amiodarone and metoprolol succinate, heart rate and fatigue appear to have improved
- TSH elevated with normal free T4, home Synthroid dose was recently increased during her prior admission, will continue current Synthroid dose of 175 mcg daily
- AM cortisol within normal limits
- Suspect there may be an element of neurodegenerative disease here, discussed with the need to pursue further evaluation for this at her next neurology appointment on July 22, 2025
- Case management consulted for assistance in arranging safe discharge considering her multiple comorbidities and recurrent falls
- Avoid overuse of sedating medications such as clonazepam although would not discontinue abruptly
- Hold oxybutynin
Bradycardia:
- Heart rate improved, now around 60, sinus rhythm
- Continue holding home amiodarone and metoprolol succinate for now
- Would potentially restart 1 of these medications cautiously but not both
- Continue telemetry monitoring
Hypothyroidism:
- Home Synthroid recently increased to 175 mcg daily during prior admission
- TSH still elevated at 33.9, free T4 within normal limits
- Free T3 slightly low at 2.02 but suspect this will improve over time with recently increased dose of Synthroid
Paroxysmal A-fib:
- Continue anticoagulation with full-strength Eliquis
- Holding metoprolol succinate 12.5 mg daily and amiodarone 100 mg daily due to presenting bradycardia
- Heart rate improved to around 60, sinus rhythm
- Continue telemetry monitoring
COPD with chronic hypoxic respiratory failure:
- No evidence of acute exacerbation
- On baseline 2 L supplemental oxygen via nasal cannula
- Albuterol nebulizers as needed
- If mental status deteriorates would check ABG
IDDM:
- At home patient uses Lantus 8 units daily, and lispro 14 units in the a.m. and 12 units at night
- Will continue Lantus 8 units daily and additional sliding scale insulin as needed
- Accu-Cheks
HFpEF:
- Chronic, currently compensated
- Holding beta-blockade due to presenting bradycardia
- She is on amlodipine 5 mg daily for blood pressure control which we will continue with holding parameters
- Continue home bumetanide 2 mg daily
DVT prophylaxis: Eliquis
CODE STATUS: Full code
Total time spent on today's encounter was 58 minutes
Anticipated Discharge: 24 - 48 hours
Subjective/Interval History
-
Date of Service: June 27, 2025
Patient was seen and examined at bedside this morning. He reports feeling stronger today, appears more clearheaded than yesterday. Heart rate has improved after holding home Toprol and amiodarone. PT/OT recommending SNF which I strongly agree
with however patient is resistant to this idea.
Objective Data
-
Labs:
Laboratory Results
06/27/25
05:02
WBC 6.4
Hgb 11.7 L
Hct 36.3 L
Plt Count 220
Sodium 139
Potassium 3.3 L
Chloride 106
Carbon Dioxide 30
BUN 14
Creatinine 1.1 H
Glucose 110 H
Calcium 9.4
Vital Signs:
Vital Signs
Temp Pulse Resp BP Pulse Ox
98.4 F 64 15 141/74 95
06/27/25 11:13 06/27/25 14:00 06/27/25 14:00 06/27/25 14:00 06/27/25 14:00
I&O
06/26/25 06/27/25 06/28/25
06:59 06:59 06:59
Output Total 600 / 600
Balance -600 / -600
Review of Systems
-
History Source: Patient
All other systems: Reviewed and negative
Constitutional: Reports Weakness
Physical Exam
-
General: No Apparent Distress
--- NOTE | 2025-06-27 16:18 | PTCARENOTE ---
Pt's assessment as documented. Aox3, but confused and forgetful. SB with 1st degree heart block and prolonged QT on tele monitor. Medications administered as ordered, see MAR. Voiding on bedpan and becoming incontinent of urine, analy care completed.
updated via phone and at bedside. Pt ringing appropriately, call cazares within reach. Bed alarm in place for safety.
[2025-06-27 16:56] LABS: Glucose - Point of Care 150 mg/dl (70-99)
[2025-06-27] MEDS: LIPITOR 20 MG PO (20:23)
[2025-06-27 21:44] LABS: Glucose - Point of Care 138 mg/dl (70-99)
--- NOTE | 2025-06-27 22:12 | PTCARENOTE ---
Patient's assessment and care as documented. Pt AAOx3, able to answer all orientation questions appropriately, but confused and forgetful at times. SB with first degree and prolonged QT on the monitor. Pt on 3L NC SpO2 95%. Pt incontinent of urine.
Purewick in place. Full linen change and bed bath given. Calazime placed generously to analy area. Desenex applied to groin and b/l breasts. Pt at the bedside at change of shift. Pt ringing the call cazares appropriately. Call cazares within reach.
Pt tolerating frequent turning and repositioning. Bed alarm on for safety.
[2025-06-28] VITALS (12 sets, daily range): BP systolic 121–149; BP diastolic 58–73; BMI 32.5
[2025-06-28] MEDS: SYNTHROID 175 MCG PO (05:32)
[2025-06-28 05:45] LABS: Hematocrit 38.5 % (37.0-47.0); Hemoglobin 12.4 g/dL (12.0-16.0); Mean Corp Hgb Conc. 32.2 g/dL (33.0-37.0); Mean Corpuscular Volume 85.2 fL (81.0-99.0); Platelet Count 233 10^3/uL (130-400); Red Cell Dist. Width 16.5 % (11.5-14.5)
[2025-06-28 06:03] LABS: Blood Urea Nitrogen 12 mg/dl (7-17); Calcium 9.2 mg/dl (8.4-10.2); Carbon Dioxide 31 mmol/L (22-30); Chloride 102 mmol/L (98-107); Estimated Creatinine Clearance 55 ml/min; Glucose 120 mg/dl (70-99); Magnesium 1.8 mg/dl (1.6-2.3); Potassium 4.0 mmol/L (3.5-5.1); Sodium 140 mmol/L (135-145); eGFR 55.07
[2025-06-28 07:33] LABS: Glucose - Point of Care 128 mg/dl (70-99)
[2025-06-28] MEDS: NOVOLOG FLEXPEN-LOW RESISTANCE SC (08:55)
[2025-06-28] MEDS: LANTUS 0.08 UNITS SC (08:56)
[2025-06-28] MEDS: DESENEX/MITRAZOL/ZEASORB 1 APPLIC TOPICAL ×2 (08:56→20:23)
[2025-06-28] MEDS: BUMEX 2 MG PO (08:57)
[2025-06-28] MEDS: ELIQUIS 5 MG PO ×2 (08:58→20:23)
[2025-06-28] MEDS: ZOLOFT 50 MG PO (08:58)
[2025-06-28] MEDS: NORVASC 5 MG PO (08:58)
--- NOTE | 2025-06-28 09:59 | PTCARENOTE ---
Pt drowsy today took pills . breakfast arrived. Pt has RBKA. 3L O2 at this timme. PTt is incont has a pure wick
[2025-06-28 11:55] LABS: Glucose - Point of Care 227 mg/dl (70-99)
[2025-06-28] MEDS: NOVOLOG FLEXPEN-LOW RESISTANCE 2 UNITS SC ×2 (12:03→17:21)
--- NOTE | 2025-06-28 15:10 | W.PN.HOSP.TC ---
Today's Communication/Plan
-
Assessment / Plan
Assessment / Plan
General: No Apparent Distress, Comfortable and Conversant
HEENT: NormoCephalic, Moist mucous membranes, Atraumatic
Respiratory: Clear and Non Labored Respirations
Cardiac: S1/S2 and Regular Rhythm; No Rub or Gallop
GI: Soft, Non Tender, Non Distended and Normal Bowel Sounds
Musculoskeletal: No Edema, right BKA
Skin: Warm and dry
: NO Davis
Neuro: Awake, Alert, Nonfocal/grossly intact
Psych: Calm and cooperative
Ms. Toribio is a 65-year-old female with a history of HFpEF, cerebrovascular disease (prior CVA), paroxysmal A-fib, CKD stage IIIa, left parietal lobe resection, multiple sclerosis (not currently on medication, regular follow-up with her
neurologist at [facility]), COPD with chronic hypoxic respiratory failure (2 L at baseline), insulin-dependent diabetes mellitus, hypothyroidism (home Synthroid dose recently increased), and recent admission for treatment of ANN secondary to UTI (on
IV ertapenem through 06/23/2025 via midline, completed) who presented after a fall from home with head strike. She denied losing consciousness. Says she did not feel dizzy just felt generally weak and a complete lack of strength in her legs causing
her to fall. CT brain showed no acute abnormality.
Generalized weakness and fall:
- This is a recurrent problem for her
- PT/OT recommending SNF which I strongly agree with, however patient is very resistant to this idea, I do not feel her is adequately equipped to care for at home by himself although he is motivated to do so
- No evidence of recurrent infection
- Electrolytes within normal limits
- Sensorium appears clear currently
- Presenting symptoms could possibly to be due to bradycardia, she was mildly bradycardic at time of admission, continue holding amiodarone and metoprolol succinate, heart rate and fatigue have improved
- TSH elevated with normal free T4, home Synthroid dose was recently increased during her prior admission, will continue current Synthroid dose of 175 mcg daily
- AM cortisol within normal limits
- Suspect there may be an element of neurodegenerative disease here, discussed with the need to pursue further evaluation for this at her next neurology appointment on July 22, 2025
- Case management consulted for assistance in arranging safe discharge considering her multiple comorbidities and recurrent falls
- Avoid overuse of sedating medications such as clonazepam although would not discontinue abruptly
- Hold oxybutynin
- Medically stable for discharge
Bradycardia:
- Heart rate improved, now around 60, sinus rhythm
- Continue holding home amiodarone and metoprolol succinate, she should follow-up with her primary covering machine tender
- Continue telemetry monitoring
Hypothyroidism:
- Home Synthroid recently increased to 175 mcg daily during prior admission
- TSH still elevated at 33.9, free T4 within normal limits
- Free T3 slightly low at 2.02 but suspect this will improve over time with recently increased dose of Synthroid
Paroxysmal A-fib:
- Continue anticoagulation with full-strength Eliquis
- Holding metoprolol succinate 12.5 mg daily and amiodarone 100 mg daily due to presenting bradycardia, will need to follow-up with her primary covering machine tender
- Heart rate improved to around 60, sinus rhythm, remained stable
- Continue telemetry monitoring
COPD with chronic hypoxic respiratory failure:
- No evidence of acute exacerbation
- On baseline 2 L supplemental oxygen via nasal cannula
- Albuterol nebulizers as needed
IDDM:
- At home patient uses Lantus 8 units daily, and lispro 14 units in the a.m. and 12 units at night
- Will continue Lantus 8 units daily and additional sliding scale insulin as needed
- Accu-Cheks
HFpEF:
- Chronic, currently compensated
- Holding beta-blockade due to presenting bradycardia
- She is on amlodipine 5 mg daily for blood pressure control which we will continue with holding parameters
- Continue home bumetanide 2 mg daily
DVT prophylaxis: Eliquis
CODE STATUS: Full code
Total time spent on today's encounter was 54 minutes
Anticipated Discharge: 24 - 48 hours
Subjective/Interval History
-
Date of Service: June 28, 2025
Patient was seen and examined at bedside this morning. Generalized weakness has significantly improved. Her bradycardia has also resolved now that her amiodarone and Toprol have been on hold for the past few days.
Objective Data
-
Labs:
Laboratory Results
06/28/25
05:27
WBC 6.8
Hgb 12.4
Hct 38.5
Plt Count 233
Sodium 140
Potassium 4.0
Chloride 102
Carbon Dioxide 31 H
BUN 12
Creatinine 1.1 H
Glucose 120 H
Calcium 9.2
Vital Signs:
Vital Signs
Temp Pulse Resp BP Pulse Ox
98.6 F 57 12 121/60 94
06/28/25 15:04 06/28/25 10:00 06/28/25 10:00 06/28/25 10:00 06/28/25 10:00
I&O
06/27/25 06/28/25 06/29/25
06:59 06:59 06:59
Intake Total 540 / 540
Output Total 600 / 600 1000 / 1000 350 / 350
Balance -600 / -600 -460 / -460 -350 / -350
Review of Systems
-
History Source: Patient
All other systems: Reviewed and negative
Physical Exam
-
General: No Apparent Distress
[2025-06-28 17:10] LABS: Glucose - Point of Care 209 mg/dl (70-99)
[2025-06-28] MEDS: KLONOPIN 0.5 MG PO (17:50)
--- NOTE | 2025-06-28 17:52 | PTCARENOTE ---
Pt asked me to talk with pt because she is upset over not going home. Talked with pt that she needs to be safe togohome. Pt more upset. she does not think she needs rehab and feels the sfest place for her is home. Asked pt if i could give
her a med that would help relieve her anxiety she agreed.Konopin given as ordered. Encouraged pt to eat and to try and sleep tonight and talk with in am.
--- NOTE | 2025-06-28 20:00 | PTCARENOTE ---
Received pt from previous shift. Systems reviewed, see flowsheets. Pt is AAOx3 with no complaints of pain at this time. SaO2 94% on 3L NC. NSR with 1st degree heart block on heart monitor. Purewick in place. LLE SCD applied. L fiber boot in place.
Q2 turns maintained. Will continue to monitor.
[2025-06-28] MEDS: LIPITOR 20 MG PO (20:23)
[2025-06-28 21:48] LABS: Glucose - Point of Care 206 mg/dl (70-99)
[2025-06-29] VITALS: BP 119/57
[2025-06-29 02:00] VITALS: BP 122/61
[2025-06-29 03:02] VITALS: BMI 32.1
[2025-06-29 04:00] VITALS: BP 130/72
[2025-06-29] MEDS: SYNTHROID 175 MCG PO (05:11)
[2025-06-29 06:00] VITALS: BP 114/79
[2025-06-29 07:41] LABS: Glucose - Point of Care 125 mg/dl (70-99)
[2025-06-29] MEDS: ZOLOFT 50 MG PO (08:00)
[2025-06-29] MEDS: NOVOLOG FLEXPEN-LOW RESISTANCE SC (08:00)
[2025-06-29] MEDS: BUMEX 2 MG PO (08:00)
[2025-06-29] MEDS: NORVASC 5 MG PO (08:00)
[2025-06-29] MEDS: ELIQUIS 5 MG PO (08:00)
[2025-06-29 08:01] VITALS: BP 141/58
[2025-06-29] MEDS: DESENEX/MITRAZOL/ZEASORB 1 APPLIC TOPICAL (08:07)
[2025-06-29] MEDS: LANTUS 0.08 UNITS SC (08:07)
--- NOTE | 2025-06-29 09:51 | W.DCSUMMARY ---
Discharge Summary
Discharge Data
Date of Admission: 06/26/25
Date of Discharge: 06/29/25
Total time spent discharging patient (in min): 46
-
Pending Results: No
Hospital Course
Ms. Toribio is a 65-year-old female with a history of HFpEF, cerebrovascular disease (prior CVA), paroxysmal A-fib, CKD stage IIIa, left parietal lobe resection, multiple sclerosis (not currently on medication, regular follow-up with her
neurologist at [facility]), COPD with chronic hypoxic respiratory failure (2 L at baseline), insulin-dependent diabetes mellitus, hypothyroidism (home Synthroid dose recently increased), and recent admission for treatment of ANN secondary to UTI (on
IV ertapenem through 06/23/2025 via midline, completed) who presented after a fall from home with head strike. She denied losing consciousness. Says she did not feel dizzy just felt generally weak and a complete lack of strength in her legs causing
her to fall. CT brain showed no acute abnormality. She was admitted for further evaluation and management.
Her electrolytes were within normal limits other than a mild hypokalemia of 3.3 which was repleted. Her TSH was elevated although this is not surprising considering her home Synthroid dose was only recently increased to 175 mcg daily. Her a.m.
cortisol level was within normal limits. Her blood glucose was well-controlled. She was mildly bradycardic and so her home metoprolol succinate and amiodarone were held. Her home oxybutynin was also held as it may have contributed to her
presenting symptoms. Her heart rate and weakness improved. She should avoid overuse of sedating medications such as oxycodone and clonazepam which she uses at home, although she should not discontinue these abruptly. She has outpatient follow-up
with her primary neurologist scheduled for 07/22/2025, at which time they should discuss potential neuropsychiatric testing. She would benefit from SNF placement for rehab. However, patient is resistant to the idea of placement in a half-way
facility. Currently she is cared for at home mostly by her . Case management has been closely involved for assistance in arranging additional resources. Patient and her would like her to be discharged to home. At time of hospital
discharge she was medically stable. Her home amiodarone and metoprolol succinate will continue to be held at discharge. She will need to follow-up with her primary elementary summer school teacher regarding ongoing heart rate monitoring and adjustments to her
medication regimen as needed.
General: No Apparent Distress, Comfortable and Conversant
HEENT: NormoCephalic, Moist mucous membranes, Atraumatic
Respiratory: Clear and Non Labored Respirations
Cardiac: S1/S2 and Regular Rhythm; No Rub or Gallop
GI: Soft, Non Tender, Non Distended and Normal Bowel Sounds
Musculoskeletal: No Edema, right BKA
Skin: Warm and dry
: NO Davis
Neuro: Awake, Alert, Nonfocal/grossly intact
Psych: Calm and cooperative
Discharge Plan
-
Patient Disposition: Home (Routine Discharge)
Discharge Diagnosis/Procedures: Generalized weakness and fall
Activity: As tolerated
Activity Restrictions/Additional Instructions:
Wound Care Instructions Left Lateral Ankle- Clean with normal saline, apply Xeroform and silicone foam dressing. Change daily and PRN.
Left heel- Cover with silicone foam border foam. Change Q48 hours and PRN.
Antifungal powder to perineum, abdominal skin folds and under breasts as directed by Physician
Gluteal Cleft- Apply Calazime BID and PRN
Turning schedule
Air mattress
Air filled boot to left LE
Ms. Toribio is a 65-year-old female with a history of HFpEF, cerebrovascular disease (prior CVA), paroxysmal A-fib, CKD stage IIIa, left parietal lobe resection, multiple sclerosis (not currently on medication, regular follow-up with her
neurologist at [facility]), COPD with chronic hypoxic respiratory failure (2 L at baseline), insulin-dependent diabetes mellitus, hypothyroidism (home Synthroid dose recently increased), and recent admission for treatment of ANN secondary to UTI (on
IV ertapenem through 06/23/2025 via midline, completed) who presented after a fall from home with head strike. She denied losing consciousness. Says she did not feel dizzy just felt generally weak and a complete lack of strength in her legs causing
her to fall. CT brain showed no acute abnormality. She was admitted for further evaluation and management.
Her electrolytes were within normal limits other than a mild hypokalemia of 3.3 which was repleted. Her TSH was elevated although this is not surprising considering her home Synthroid dose was only recently increased to 175 mcg daily. Her a.m.
cortisol level was within normal limits. Her blood glucose was well-controlled. She was mildly bradycardic and so her home metoprolol succinate and amiodarone were held. Her home oxybutynin was also held as it may have contributed to her
presenting symptoms. Her heart rate and weakness improved. She should avoid overuse of sedating medications such as oxycodone and clonazepam which she uses at home, although she should not discontinue these abruptly. She has outpatient follow-up
with her primary neurologist scheduled for 07/22/2025, at which time they should discuss potential neuropsychiatric testing. She would benefit from SNF placement for rehab. However, patient is resistant to the idea of placement in a half-way
facility. Currently she is cared for at home mostly by her . Case management has been closely involved for assistance in arranging additional resources. Patient and her would like her to be discharged to home. At time of hospital
discharge she was medically stable. Her home amiodarone and metoprolol succinate will continue to be held at discharge. She will need to follow-up with her primary elementary summer school teacher regarding ongoing heart rate monitoring and adjustments to her
medication regimen as needed.
Referrals:
Tera Perez DO [Family Provider, Internal Medicine]
Prescriptions:
Continued
sertraline 50 MG tablet
50 mg PO DAILY
sennosides [senna] 8.6 mg Tablet
17.2 mg PO DAILYPRN PRN (Reason: constipation)
acetaminophen [Tylenol] 325 mg Tablet
975 mg PO Q8HPRN PRN (Reason: mild pain)
atorvastatin [Lipitor] 20 mg Tablet
20 mg PO HS
bumetanide 2 mg Tablet
2 mg PO DAILY
ferrous sulfate 325 mg (65 mg iron) Tablet
325 mg PO TID
albuterol sulfate 90 mcg/actuation Hfa Aerosol Inhaler
2 puff INHALATION R Q4HPRN PRN (Reason: sob)
insulin lispro [Humalog KwikPen Insulin] 100 unit/mL Insulin Pen
12 unit SC QPM
insulin lispro [Humalog KwikPen Insulin] 100 unit/mL Insulin Pen
14 unit SC DAILY
cholecalciferol (vitamin D3) [Vitamin D3] 25 mcg (1,000 unit) Tablet
25 mcg PO DAILY
insulin glargine [Lantus Solostar U-100 Insulin] 100 unit/mL (3 mL) Insulin Pen
8 unit SC DAILY
clonazepam 0.5 mg Tablet
0.5 mg PO DAILYPRN PRN (Reason: anxiety)
amlodipine [Norvasc] 5 mg Tablet
5 mg PO DAILY
oxycodone 5 mg Tablet
5 mg PO Q6HPRN PRN (Reason: mild pain)
magnesium oxide 500 mg magnesium Tablet
500 mg PO DAILY Qty: 30 0RF
Eliquis 5 mg Tablet
5 mg PO BID Qty: 60 0RF
levothyroxine 175 mcg Tablet
175 mcg PO DAILY @ 0600 Qty: 30 0RF
Held
metoprolol succinate 25 mg Tablet Extended Release 24 Hr
12.5 mg PO DAILY 90 Days Qty: 45 2RF
Hold Instructions: Hold for now until follow-up with cardiology, was initially bradycardic during admission, heart rate well-controlled around 60 at time of discharge
oxybutynin chloride 5 mg Tablet
5 mg PO QPM
Hold Instructions: Held due to presenting weakness and fatigue with multiple falls
amiodarone 100 mg tablet
100 mg PO DAILY Qty: 30 0RF
Hold Instructions: Hold for now until follow-up with cardiology, was initially bradycardic during admission, heart rate well-controlled around 60 at time of discharge
Discharge Orders:
Discharge Patient (As Directed); Ordered 06/29/25
Ordered By: Ghassan Cobb
Discharge Date and Time
Print Language: PORTUGUESE
--- NOTE | 2025-06-29 09:56 | CM ---
Addendum entered by Sabrina Dumont 06/29/25 10:40:
consumer affairs manager met with patient and spouse and plan is to home today, patient and spouse plan on going to outpatient PT/OT at [facility] in [place], case supervisor obtained script from physician, Patient was on nocturnal oxygen at home at 2 liters,
patient is currently off oxygen, plan home today, spouse will transport.
Original Note:
Chart reviewed and recommendation is for skilled placement referral sent to [facility], no determination from admissions at [facility], call placed to Muriel Aguilar in admissions at [facility], requesting update on available bed for
patient, patient will need Auth from insurance and updated PT/OT notes in order to obtain Auth.
Plan; To follow up with admissions at [facility].
[2025-06-29 10:00] VITALS: BP 131/59
--- NOTE | 2025-06-29 10:36 | PTCARENOTE ---
assumed care of pt from nightshift. Pt AAOx3, eager to go home. Pt to go home with and not to SNF. Full assessment is as documented in worklist. at bedside. VSS.
== END 2025-06-29 11:30 | disposition home or self-care (01) | DRG 644 ==
LOC: IMU 02:48
PROVIDERS: Nurse Practitioner Family; ADMITTING PHYSICIAN Hospitalist; ATTENDING PHYSICIAN Internal Medicine; EMERGENCY PHYSICIAN Emergency Medicine; FAMILY PHYSICIAN Internal Medicine
DX: E03.9 Hypothyroidism, unspecified (principal); E87.20 Acidosis, unspecified; I13.0 Hypertensive heart and chronic kidney disease with heart failure and stage 1 through stage 4 chronic kidney disease, or unspecified chronic kidney disease; I50.32 Chronic diastolic (congestive) heart failure; J96.11 Chronic respiratory failure with hypoxia; I48.0 Paroxysmal atrial fibrillation; J44.9 Chronic obstructive pulmonary disease, unspecified; Z86.73 Personal history of transient ischemic attack (TIA), and cerebral infarction without residual deficits; G35 Multiple sclerosis; W06.XXXA Fall from bed, initial encounter; N18.31 Chronic kidney disease, stage 3a; E11.22 Type 2 diabetes mellitus with diabetic chronic kidney disease; F32.A Depression, unspecified; F41.9 Anxiety disorder, unspecified; E66.9 Obesity, unspecified; Z68.32 Body mass index [BMI] 32.0-32.9, adult; Z89.511 Acquired absence of right leg below knee; Z87.891 Personal history of nicotine dependence; E78.00 Pure hypercholesterolemia, unspecified; E87.6 Hypokalemia; I25.10 Atherosclerotic heart disease of native coronary artery without angina pectoris; Z99.81 Dependence on supplemental oxygen; Z79.4 Long term (current) use of insulin
CPT/HCPCS: 70450; 71045; 80048; 80053; 81003; 81015; 82533; 82962; 83605; 83735; 84100; 84439; 84443; 84481; 85025; 85027; 87040; 87070; 93005; 96360; 97163; 97167; 99291

== ENCOUNTER 2025-08-12 13:25 | Observation (INO) | payer MEDICARE, SELFPAY ==
[2025-08-12] VITALS (10 sets, daily range): BP systolic 100–143; BP diastolic 58–82; BMI 34.0; BMI 32.8
[2025-08-12 07:46] LABS: Glucose - Point of Care 169 mg/dl (70-99)
--- NOTE | 2025-08-12 07:54 | ED.GENMED ---
History of Present Illness
<Bibiana White PA-C - Last Filed: 08/12/25 15:01>
General
Chief Complaint: Change in Mental Status
Source: patient and family
Exam Limitations: none
Time Seen by Provider: 08/12/25 06:27
History of Present Illness
History of Present Illness:
see MDM
Past History
<Bibiana White PA-C - Last Filed: 08/12/25 15:01>
Past History
ED Past Medical History: CVA, HTN, Hypercholesterolemia, NIDDM and Other (brain lesion, Fournge's gangrene)
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
Social History
Tobacco: Non-smoker
Alcohol: None
Drug: None
Personal:
Living: with family
Employment: Other
Family History
Family History: Other
Phy Exam
<SCOT Graham Last Filed: 08/12/25 15:01>
Physical Exam
Physical Exam:
see BELOW
Course
<SCOT Graham Last Filed: 08/12/25 15:01>
Orders/Labs/Results
Orders:
Orders
08/12/25 06:32
Electrocardiogram (*1) Urgent
Reason for Study: Fatigue / Weakness
EKG- Treatment ONCE
08/12/25 06:38
Speech Screening from [place] Routine
08/12/25 06:41
Cardiac Monitoring- Treatment ONCE
Straight cath- Treatment ONCE
CR Chest - 2 Views Urgent
Comment:
Reason For Exam: mild sob, edema, confusion
08/12/25 06:42
CT Head W/o Iv Contrast Urgent
Comment:
Reason For Exam: ams
08/12/25 07:52
Urinalysis Reflex To Culture Urgent
Date Specimen was Collected: 08/12/25
Time Specimen was Collected: 07:50
Urine Drug Abuse Screen Urgent
Date Specimen was Collected: 08/12/25
Time Specimen was Collected: 07:50
Urine Microscopic Reflex Cult Urgent
Influenza A+B Rapid Molecular Urgent
LIZZY Source: Nasal Swab
Specimen Description:
Urine Culture Urgent
LIZZY Source: U
Specimen Description:
Date Specimen was Collected: 08/12/25
Time Specimen was Collected: 07:50
08/12/25 08:36
Basic Metabolic Panel Urgent
Complete Blood Count/With Diff Urgent
Free T4 Urgent
NT-proBNP Urgent
TSH Reflex To Free T4 Urgent
Troponin I Urgent
08/12/25 09:21
COVID-19 Antigen Urgent
Source: Nasal Swab
Venous Blood Gas Urgent
%Oxygen/Room Air: 21
08/12/25 11:34
Urine Drug Abuse Screen Urgent
08/12/25 11:39
Levothyroxine [Levothroid] 25 mcg IV NOW STA
Patient requires IV dosing to begin now?: Yes
Reason to begin IV dosing now:: TSH greater than 10
08/12/25 11:40
Admit/Transfer Patient As Directed
Co-Sign Provider:
Level of Care: Observation services
Assign to:: Telemetry
Physician / Group: Rosendo
Diagnosis: confusion
Reason for Telemetry: Arrhythmia
Date to Stop Telemetry: 08/15/25
Time to Stop Telemetry: 11:00
PRN Pain Medication Management As Directed
May give lesser potent ordered pain med per pt: Yes
preference::
Protocol:: Medication orders for pain may be administered in a
manner that supports deferring to patient preference
when the pt is:
- Requesting an ordered lesser potent pain medication.
Least to most potent pain medications are defined
as: acetaminophen < NSAID < tramadol < opioids
(morphine, oxycodone, hydromorphone).
- Requesting a lesser dose of the same medication IF
ORDERED.
- Requesting a less intrusive route of administration
if both routes are prescribed by the provider (PO <
IV).
08/12/25 11:43
Code Status As Directed
Resuscitation Status: Full Code
08/12/25 11:46
CARDIOLOGY CONSULT Routine
Consulting Provider: Alan Thompson
Was physician already notified: Yes
Reason for consult: bradycardia
08/12/25 11:51
Add On- LAB Urgent
Tests Added?: uds
08/12/25 14:49
Acetaminophen [Tylenol] 650 mg PO Q8HPRN PRN mild pain
Albuterol [ProAIR HFA INHALER] 2 puff INH R Q4HPRN PRN shortness of breath
Bisacodyl [Dulcolax] 10 mg RECTAL [id number] PRN
Dextrose 50%-Water [Dextrose 50% Syringe] 12.5 grams IV [id number] PRN
Docusate W/Senna [Senokot-S] 1 tablet PO BIDPRN PRN
Glucagon [GlucaGen] 1 mg IM PRN PRN
Polyethylene Glycol Powder [Miralax] 17 grams PO DAILYPRN PRN
Sennosides [Senokot] 17.2 mg PO DAILYPRN PRN constipation
08/12/25 14:49
Activity As Directed
Activity Level: With Assistance
Bedside Glucose Monitoring As Directed
Frequency: AC&HS
Additional Instructions:: Change to q6h if pt on TPN, tube feeding or not eating
Vital Signs As Directed
Frequency: Per unit guidelines
08/12/25 Dinner
2000 calorie (17 carb) Diabetic
At Your Request: Limited, Furniture Manager Required
Does patient need a safe tray?: No
08/12/25 16:00
Ferrous Sulfate [Feosol] 325 mg PO TID
08/12/25 16:30
Insulin Aspart Corrective Mod [Novolog Flexpen-Moderate Resistance] See Protocol SC AC
08/12/25 18:00
insulin lispro [Humalog KwikPen Insulin] 12 unit SC QPM
08/12/25 20:00
Apixaban [Eliquis] 5 mg PO BID
08/12/25 22:00
Atorvastatin [Lipitor] 20 mg PO HS
08/13/25 06:00
Basic Metabolic Panel IN AM
Complete Blood Count/No Diff IN AM
Glycohemoglobin (HgbA1c) IN AM
08/13/25 08:00
Amiodarone [Pacerone] 100 mg PO DAILY
Amlodipine [Norvasc] 5 mg PO DAILY
Aspirin Low Dose EC [Aspir Low (Enteric Coated)] 81 mg PO DAILY
Cholecalciferol (Vitamin D3) [VITAMIN D3 (cholecalciferol)] 25 mcg PO DAILY
Levothyroxine [Synthroid] 200 mcg PO DAILY
Oxybutynin Chloride [Ditropan] 5 mg PO DAILY
Sertraline HCl [Zoloft] 50 mg PO DAILY
bumetanide 2 mg PO DAILY
insulin glargine [Lantus Solostar U-100 Insulin] 8 unit SC DAILY
insulin lispro [Humalog KwikPen Insulin] 14 unit SC DAILY
magnesium oxide 500 mg PO DAILY
08/15/25 11:00
DC Protocol for Telemetry ONCE
Abnormal Lab Results
08/12/25 08/12/25 08/12/25
07:44 07:52 08:36
MCHC 31.9 L g/dL
(33.0-37.0)
RDW 15.5 H %
(11.5-14.5)
VBG pCO2
VBG pO2
VBG HCO3
BUN 23 H mg/dl
(7-17)
Creatinine 1.1 H mg/dL
(0.6-1.0)
Glucose 160 H mg/dl
(70-99)
TSH (Reflex) 24.80 H uIU/ml
(0.47-4.68)
Leukocyte Esterase Rfl 2+ A
(Negative)
Urine Bacteria (Reflex) Many A
(Negative)
Urine Albumin (Reflex) 1+ A
(Neg - Trace)
POC Glucose 169 H mg/dl
(70-99)
08/12/25
09:21
MCHC
RDW
VBG pCO2 51 H mmHg
(35-48)
VBG pO2 61 H mmHg
(30-50)
VBG HCO3 30.9 H mmol/L
(22-27)
BUN
Creatinine
Glucose
TSH (Reflex)
Leukocyte Esterase Rfl
Urine Bacteria (Reflex)
Urine Albumin (Reflex)
POC Glucose
08/12/25 08:36
08/12/25 08:36
Vital Signs
Initial and Last Documented VS:
Initial Vital Signs
Temp Pulse Resp BP Pulse Ox
36.1 C 44 22 112/60 95
08/12/25 06:23 08/12/25 06:23 08/12/25 06:23 08/12/25 06:23 08/12/25 06:23
Last Documented Vital Signs
Temp Pulse Resp BP Pulse Ox
36.1 C 45 15 100/58 93
08/12/25 06:23 08/12/25 13:45 08/12/25 13:45 08/12/25 13:00 08/12/25 13:30
<Dalton Britt MD - Last Filed: 08/12/25 09:13>
Orders/Labs/Results
Orders:
Orders
08/12/25 06:32
Electrocardiogram (*1) Urgent
Reason for Study: Fatigue / Weakness
EKG- Treatment ONCE
08/12/25 06:38
Speech Screening from [place] Routine
08/12/25 06:41
Cardiac Monitoring- Treatment ONCE
Straight cath- Treatment ONCE
CR Chest - 2 Views Urgent
Comment:
Reason For Exam: mild sob, edema, confusion
08/12/25 06:42
CT Head W/o Iv Contrast Urgent
Comment:
Reason For Exam: ams
08/12/25 07:52
Urinalysis Reflex To Culture Urgent
Date Specimen was Collected: 08/12/25
Time Specimen was Collected: 07:50
Urine Drug Abuse Screen Urgent
Date Specimen was Collected: 08/12/25
Time Specimen was Collected: 07:50
Urine Microscopic Reflex Cult Urgent
Influenza A+B Rapid Molecular Urgent
LIZZY Source: Nasal Swab
Specimen Description:
Urine Culture Urgent
LIZZY Source: U
Specimen Description:
Date Specimen was Collected: 08/12/25
Time Specimen was Collected: 07:50
08/12/25 08:36
Basic Metabolic Panel Urgent
Complete Blood Count/With Diff Urgent
Free T4 Urgent
NT-proBNP Urgent
TSH Reflex To Free T4 Urgent
Troponin I Urgent
08/12/25 09:21
COVID-19 Antigen Urgent
Source: Nasal Swab
Venous Blood Gas Urgent
%Oxygen/Room Air: 21
08/12/25 11:34
Urine Drug Abuse Screen Urgent
08/12/25 11:39
Levothyroxine [Levothroid] 25 mcg IV NOW STA
Patient requires IV dosing to begin now?: Yes
Reason to begin IV dosing now:: TSH greater than 10
08/12/25 11:40
Admit/Transfer Patient As Directed
Co-Sign Provider:
Level of Care: Observation services
Assign to:: Telemetry
Physician / Group: Rosendo
Diagnosis: confusion
Reason for Telemetry: Arrhythmia
Date to Stop Telemetry: 08/15/25
Time to Stop Telemetry: 11:00
PRN Pain Medication Management As Directed
May give lesser potent ordered pain med per pt: Yes
preference::
Protocol:: Medication orders for pain may be administered in a
manner that supports deferring to patient preference
when the pt is:
- Requesting an ordered lesser potent pain medication.
Least to most potent pain medications are defined
as: acetaminophen < NSAID < tramadol < opioids
(morphine, oxycodone, hydromorphone).
- Requesting a lesser dose of the same medication IF
ORDERED.
- Requesting a less intrusive route of administration
if both routes are prescribed by the provider (PO <
IV).
08/12/25 11:43
Code Status As Directed
Resuscitation Status: Full Code
08/12/25 11:46
CARDIOLOGY CONSULT Routine
Consulting Provider: Alan Thompson
Was physician already notified: Yes
Reason for consult: bradycardia
08/12/25 11:51
Add On- LAB Urgent
Tests Added?: uds
08/12/25 14:49
Acetaminophen [Tylenol] 650 mg PO Q8HPRN PRN mild pain
Albuterol [ProAIR HFA INHALER] 2 puff INH R Q4HPRN PRN shortness of breath
Bisacodyl [Dulcolax] 10 mg RECTAL [id number] PRN
Dextrose 50%-Water [Dextrose 50% Syringe] 12.5 grams IV [id number] PRN
Docusate W/Senna [Senokot-S] 1 tablet PO BIDPRN PRN
Glucagon [GlucaGen] 1 mg IM PRN PRN
Polyethylene Glycol Powder [Miralax] 17 grams PO DAILYPRN PRN
Sennosides [Senokot] 17.2 mg PO DAILYPRN PRN constipation
08/12/25 14:49
Activity As Directed
Activity Level: With Assistance
Bedside Glucose Monitoring As Directed
Frequency: AC&HS
Additional Instructions:: Change to q6h if pt on TPN, tube feeding or not eating
Vital Signs As Directed
Frequency: Per unit guidelines
08/12/25 Dinner
2000 calorie (17 carb) Diabetic
At Your Request: Limited, Furniture Manager Required
Does patient need a safe tray?: No
08/12/25 16:00
Ferrous Sulfate [Feosol] 325 mg PO TID
08/12/25 16:30
Insulin Aspart Corrective Mod [Novolog Flexpen-Moderate Resistance] See Protocol SC AC
08/12/25 18:00
insulin lispro [Humalog KwikPen Insulin] 12 unit SC QPM
08/12/25 20:00
Apixaban [Eliquis] 5 mg PO BID
08/12/25 22:00
Atorvastatin [Lipitor] 20 mg PO HS
08/13/25 06:00
Basic Metabolic Panel IN AM
Complete Blood Count/No Diff IN AM
Glycohemoglobin (HgbA1c) IN AM
08/13/25 08:00
Amiodarone [Pacerone] 100 mg PO DAILY
Amlodipine [Norvasc] 5 mg PO DAILY
Aspirin Low Dose EC [Aspir Low (Enteric Coated)] 81 mg PO DAILY
Cholecalciferol (Vitamin D3) [VITAMIN D3 (cholecalciferol)] 25 mcg PO DAILY
Levothyroxine [Synthroid] 200 mcg PO DAILY
Oxybutynin Chloride [Ditropan] 5 mg PO DAILY
Sertraline HCl [Zoloft] 50 mg PO DAILY
bumetanide 2 mg PO DAILY
insulin glargine [Lantus Solostar U-100 Insulin] 8 unit SC DAILY
insulin lispro [Humalog KwikPen Insulin] 14 unit SC DAILY
magnesium oxide 500 mg PO DAILY
08/15/25 11:00
DC Protocol for Telemetry ONCE
Abnormal Lab Results
08/12/25 08/12/25 08/12/25
07:44 07:52 08:36
MCHC 31.9 L g/dL
(33.0-37.0)
RDW 15.5 H %
(11.5-14.5)
VBG pCO2
VBG pO2
VBG HCO3
BUN 23 H mg/dl
(7-17)
Creatinine 1.1 H mg/dL
(0.6-1.0)
Glucose 160 H mg/dl
(70-99)
TSH (Reflex) 24.80 H uIU/ml
(0.47-4.68)
Leukocyte Esterase Rfl 2+ A
(Negative)
Urine Bacteria (Reflex) Many A
(Negative)
Urine Albumin (Reflex) 1+ A
(Neg - Trace)
POC Glucose 169 H mg/dl
(70-99)
08/12/25
09:21
MCHC
RDW
VBG pCO2 51 H mmHg
(35-48)
VBG pO2 61 H mmHg
(30-50)
VBG HCO3 30.9 H mmol/L
(22-27)
BUN
Creatinine
Glucose
TSH (Reflex)
Leukocyte Esterase Rfl
Urine Bacteria (Reflex)
Urine Albumin (Reflex)
POC Glucose
08/12/25 08:36
08/12/25 08:36
Vital Signs
Initial and Last Documented VS:
Initial Vital Signs
Temp Pulse Resp BP Pulse Ox
36.1 C 44 22 112/60 95
08/12/25 06:23 08/12/25 06:23 08/12/25 06:23 08/12/25 06:23 08/12/25 06:23
Last Documented Vital Signs
Temp Pulse Resp BP Pulse Ox
36.1 C 45 15 100/58 93
08/12/25 06:23 08/12/25 13:45 08/12/25 13:45 08/12/25 13:00 08/12/25 13:30
<Bibiana White PA-C - Last Filed: 08/12/25 15:01>
MDM/Problems Addressed
Differential Diagnosis Includes:
SEE mdm
MDM/Problems Addressed:
Note:
CHIEF COMPLAINT(S)
Confusion and difficulty breathing.
HISTORY OF PRESENT ILLNESS
The patient is a 65-year-old female with a history of sleep apnea, diabetes, COPD, wears 4L O2 at night usually only, and previous strokes in 2009 here with for feeling generally not well and confused.
he thought she was having trouble breathing last night, yet she kept removing her o2 intermittently; she was restless up and down out of bed
she can transfer on her own into her wheelchair
when asked how she feels, she says 'confused.' but then cannot describe in what way she is confused
she is answering questions appropriately
she has no headache, nausea, vomiting, cp, abd pain, focal weakness.
The patient has been experiencing low heart rates chronically, historically resting in the 40s, but has never been evaluated for a pacemaker. She had a non-healing sore on her heel, leading to gangrene, resulting in a below-knee amputation in 2023.
The spouse denies diarrhea but notes that the patient has had normal bowel movements and urination. She was last seen in the emergency department for a urinary tract infection (UTI) in May, where she reportedly had three infections.
she also is on bumex and has some edema in her nonamputated leg
PAST MEDICAL AND SURGICAL HISTORY
- Sleep apnea
- Diabetes mellitus
- Chronic obstructive pulmonary disease (COPD)
- Two strokes in 2009
- Below-knee amputation due to diabetic complications in 2023
CHRONIC MEDICAL CONDITIONS SIGNIFICANTLY AFFECTING CARE
- Diabetes mellitus
- Chronic obstructive pulmonary disease (COPD)
- Past strokes
- Sleep apnea
SOCIAL DETERMINANTS AFFECTING HEALTH
Per spouse, the patient has a history of smoking, which has since ceased. The patient does not consume alcohol or abuse drugs.
REVIEW OF SYSTEMS
- General: Confusion, fatigue, restlessness, difficulty breathing
- Neurological: Reports of 'bad dreams' and feelings samantha to seizures
- Respiratory: Difficulty breathing
- Cardiac: History of low resting heart rate
- Gastrointestinal: Normal bowel movements
PHYSICAL EXAM
- Nursing notes reviewed and vital signs reviewed.
-GENERAL: Alert , in no apparent distress, generally pale, mildly fatigued
EYE: pupils equal and reactive
NECK: Supple
ENT: o/p clr, mmm.
CARDIAC: bradycardic 40s .
LUNGS: Clear breath sounds bilaterally, no acute respiratory distress, no wheezes/rales/rhonchi
ABDOMEN: Soft, without focal tenderness, no r/g, no cvat, normal bowel sounds
NEUROLOGICAL: Alert and oriented, no focal neuro deficits, cn intact, strength seems s
SKIN: Warm and dry, skin intact.
MUSCULOSKELETAL: Right BKA well-healed
Left lower extremity mild pitting edema 1+, no erythema
PSYCH: Normal and appropriate interaction.
PLAN
- Obtain a urine sample via catheterization to check for possible bladder infection.
- Perform blood work to assess current health status and underlying causes of confusion and respiratory issues.
- Consider repeating hematology studies to evaluate any changes in blood counts.
DIFFERENTIAL DIAGNOSIS
The Differential Diagnosis includes, in no particular order and is not limited to:
- Urinary tract infection
- Hypoxia due to intermittent removal of supplemental oxygen
- Sleep apnea exacerbation
- Seizure activity
- Chronic obstructive pulmonary disease exacerbation
- Adverse medication effect or interaction
- Cardiac arrhythmia (e.g., bradycardia)
- Neurological event (e.g., transient ischemic attack)
- Electrolyte imbalance
- Infection (e.g., pneumonia, systemic infection)
65 y/o F
difficult historian
at bedside
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
here for vague ams, seems confused, weak, restless last night in and out of bed, urinating more frequently
gets UTIs that are abx resistant
pt has not had any fever, cough, cp, abd pain, vomiting
she is sleepy but rises with verbal stimuli
labs show borderline UA, tsh elevated but free t4 normal and no other signs myxedema
pt will be admitted
<Bibiana White PA-C - Last Filed: 08/12/25 15:01>
*Pulse Oximetry
SaO2: 95
Oxygen Mode of Delivery: Room air
Patient hypoxic: no (93)
*Critical Care Note
Total Time (30-74mins, 75-104mins- exclusive of procedures): Not Applicable
ED Attending Note
<Bibiana White PA-C - Last Filed: 08/12/25 15:01>
-
Portions of this chart may have been created with voice recognition software.� Occasional wrong word or��sound alike� substitutions may have occurred due to the inherent limitations of voice recognition software.
<Dalton Britt MD - Last Filed: 08/12/25 09:13>
ED Attending Note
Patient seen and examined by attending physician: Yes
ED Attending Note:
I have seen and evaluated the patient with a [id number] encounter. I have spoken to the advance practicer provider and involved in the medical history, the physical exam, medical decision making.
Evaluation and management service: agree unless noted differently below.
Results interpretation: agree unless noted differently below.
Focused HPI: 65-year-old female with extensive medical history as noted presents to the ER for evaluation of change in mental status. Symptoms ongoing for 24 hours. says she has been confused, restless. Has had frequent urination
recently. She has a history of frequent UTIs growing resistant bacteria. No fever or chills noted. No vomiting. No chest pain or shortness of breath. She has chronic swelling the legs. No falls or trauma reported. No other acute complaints
noted.
Physical exam: Patient is awake, somewhat lethargic. Bradycardic, mild tachypnea. Breathing comfortably no distress with no hypoxia. Abdomen nontender. Mild edema in the legs.
Medical Decision Makin-year-old female presents for mental status changes over the past 24 hours. Vitals and exam as above. Labs were sent off including a CBC and a CMP, thyroid studies, VBG. Check urinalysis. Check viral swabs, chest
x-ray. Will check CT head. Check an EKG. Monitor closely reassess after the above. Anticipate admission.
Discharge Plan
Departure
Patient Disposition: Admit
Date of Disposition: 08/12/25
Time of Disposition: 10:12
Presentation/result/management discussed w/ accepting MD/DO: Hospitalist
Patient with high blood pressure during this ER visit?: No
Condition: Fair
Covid-19: Not Applicable
Discharge Problem:
AMS (altered mental status), Hypothyroidism, Bradycardia
Interventions
Interventions:
*Risk Screen - Suicide Last Done: 08/12/25 06:34
*General Assessment Last Done: 08/12/25 06:34
*Neglect/Abuse Screening Last Done: 08/12/25 06:34
*ED- Fall Risk Assessment Last Done: 08/12/25 06:34
*ED COVID-19 Vaccine History Last Done: 08/12/25 06:34
ED- Pulmonary Assessment Last Done: 08/12/25 06:34
ED- Neurological Assessment Last Done: 08/12/25 06:34
ED- Cardiac Assessment Last Done: 08/12/25 06:34
ED Swallowing Screen Last Done: 08/12/25 06:34
[2025-08-12 08:09] LABS: Urine Character Clear (Clear)
[2025-08-12 08:16] LABS: Urine Squamous Cell 0-2 /LPF (Few)
[2025-08-12 08:17] LABS: Urine Red Blood Cell 0-2 /HPF (0-2)
[2025-08-12 08:59] LABS: Hematocrit 38.6 % (37.0-47.0); Hemoglobin 12.3 g/dL (12.0-16.0); Mean Corp Hgb Conc. 31.9 g/dL (33.0-37.0); Mean Corpuscular Volume 87.3 fL (81.0-99.0); Nucleated Red Blood Cells % 0 %; Platelet Count 168 10^3/uL (130-400); Red Cell Dist. Width 15.5 % (11.5-14.5)
[2025-08-12 09:32] LABS: Troponin I < 0.012 ng/ml
[2025-08-12 09:36] LABS: Blood Urea Nitrogen 23 mg/dl (7-17); Estimated Creatinine Clearance 58 ml/min; Glucose 160 mg/dl (70-99); Sodium 143 mmol/L (135-145); eGFR 55.07
[2025-08-12 09:37] LABS: Calcium 9.2 mg/dl (8.4-10.2); Carbon Dioxide 29 mmol/L (22-30); Chloride 106 mmol/L (98-107)
[2025-08-12 09:41] LABS: Venous Blood Gas B.E. 4.8 mmol/L (-4 to +4); Venous Blood Gas O2 Sat % 92.4 %
[2025-08-12 09:56] LABS: COVID-19 Antigen Negative (Negative)
--- NOTE | 2025-08-12 11:02 | HPS.HSE ---
Family Physician
-
Family Physician: Tera Perez
Chief Complaint
-
Confusion
History of Present Illness
65 y/o F with PMHx:
Bradycardia (BB/Amio held at time of d/c 06/29/25)
Obesity due to excess calories
CKD3a
Chronic HFpEF
h/o CVA
PAF
L parietal love resection
MS
Chronic hypoxemic and hypercapnic respiratory failure due to COPD, on 2L NC O2 at baseline
DM2
Hypothyroidism
who p/w CC confusion. Patient's reports the patient has had confusion for approximately last 2 days but it is significantly worsened over the last 24 hours. The patient reports that this morning the patient asked to come to the ER.
Patient has been taking all her medications as prescribed. He denies that she has had any suspicious ingestions. No reports of fever, chest pain, shortness of breath, nausea, vomiting, abdominal pain, diarrhea. The patient's also reports
she had a headache recently. Currently, due to the patient's confusion, she cannot give her own history in detail.
Medical History
Past Medical History
Past Medical History: Reports Other (as per HPI)
Past Surgical History: Reports Other (N/A)
Social History
Tobacco: Former Smoker
Alcohol: None
Drug: None
Family History
Family History: Not pertinent
Allergies / Home Medications
Allergies reflects when Allergies were last updated in [employer].
Home Medications with original date entered in [employer]
Allergy/Medication List:
Allergies
Allergy/AdvReac Type Severity Reaction Status Date / Time
Penicillins Allergy Hives Verified 08/12/25 06:26
Home Medications
sertraline 50 mg tablet 50 mg PO DAILY depression/anxiety 03/05/16
acetaminophen 325 mg tablet (Tylenol) 650 mg PO Q8HPRN PRN mild pain 05/21/25
albuterol sulfate 90 mcg/actuation aerosol inhaler 2 puff inhalation R Q4HPRN PRN shortness of breath 05/21/25
atorvastatin 20 mg tablet (Lipitor) 20 mg PO HS High Cholesterol 05/21/25
bumetanide 2 mg tablet 2 mg PO DAILY Fluid Retention/Swelling 05/21/25
cholecalciferol (vitamin D3) 25 mcg (1,000 unit) tablet (Vitamin D3) 25 mcg PO DAILY Supplement 05/21/25
ferrous sulfate 325 mg (65 mg iron) tablet 325 mg PO TID Supplement 05/21/25
insulin glargine 100 unit/mL (3 mL) subcutaneous pen (Lantus Solostar U-100 Insulin) 8 unit SC DAILY Diabetes 05/21/25
insulin lispro 100 unit/mL subcutaneous pen (Humalog KwikPen (U-100) Insulin) 12 unit SC QPM Diabetes 05/21/25
insulin lispro 100 unit/mL subcutaneous pen (Humalog KwikPen (U-100) Insulin) 14 unit SC DAILY Diabetes 05/21/25
sennosides 8.6 mg tablet (senna) 17.2 mg PO DAILYPRN PRN constipation 05/21/25
amlodipine 5 mg tablet (Norvasc) 5 mg PO DAILY Blood Pressure 06/13/25
clonazepam 0.5 mg tablet 0.5 mg PO DAILYPRN PRN anxiety 06/13/25
amiodarone 200 mg tablet 100 mg PO DAILY Arrhythmia 08/12/25
apixaban 5 mg tablet (Eliquis) 5 mg PO BID Blood Clot Prevention/Tx 08/12/25
aspirin 81 mg tablet,delayed release 81 mg PO DAILY Blood Clot Prevention/Tx 08/12/25
baclofen 20 mg tablet 20 mg PO BID Muscle Spasms 08/12/25
levothyroxine 175 mcg tablet 175 mcg PO DAILY Thyroid 08/12/25
magnesium oxide 500 mg PO DAILY Electrolyte Repletion 08/12/25
metoprolol succinate 25 mg tablet,extended release 24 hr (Toprol XL) 12.5 mg PO DAILY Blood Pressure 08/12/25
oxybutynin chloride 5 mg tablet 5 mg PO DAILY Urinary Issue 08/12/25
oxycodone 5 mg tablet 5 mg PO Q6HPRN PRN SEVERE PAIN 08/12/25
Review of Systems
-
History Source: Family
A 12 point ROS was completed and negative except as noted: Yes
Physical Exam
Vital Signs
Vital Signs
Temp Pulse Resp BP Pulse Ox
97 F 47 11 128/71 94
08/12/25 06:23 08/12/25 10:15 08/12/25 10:15 08/12/25 10:00 08/12/25 10:15
Physical Exam
General: Other (.)
Laboratory Results
-
08/12/25 08:36
08/12/25 08:36
Laboratory Results
Total Bilirubin Cancelled 08/12/25 08:36
AST Cancelled 08/12/25 08:36
ALT Cancelled 08/12/25 08:36
Alkaline Phosphatase Cancelled 08/12/25 08:36
Troponin I < 0.012 ng/ml 08/12/25 08:36
Impression/Plan
-
Gen: NAD, AAOx1.
Eyes: EOMI, PERRLA, no scleral icterus.
ENMT: hursuit face
Neck: supple.
CV: arden, reg rhythm, +S1/S2, no m/r/g.
Resp: CTAB, no rales, wheezes, or rhonchi.
Abd: +BS, soft, NT, ND
Skin: No rashes. 1+ LLE edema
Neuro: CN 2-12 intact, non-focal.
Psych: Normal mood and affect.
CT brain:
1. Moderate chronic encephalomalacia in the left parietal lobe.
2. Chronic resolved intraparenchymal hemorrhage or hemorrhagic infarct in the left basal ganglia with a band of residual encephalomalacia.
3. Moderate white matter leukoaraiosis in the right parietal lobe.
4. Moderate cerebellar volume loss.
5. Mild global cerebral volume loss.
CXR: No radiographic evidence of acute cardiopulmonary abnormality. Chronic elevation of the left hemidiaphragm with small amount of scarring/atelectasis along the left lung base.
ECG (read by me): SB @ 45, L-axis, No acute ST/TW changes
Subacute confusion:
-work up in ER fairly unrevealing
-afebrile, no leukocytosis
-imaging unremarkable
-VBG shows chronic hypercapnia, unchanged. Pt is 95% on RA in ER.
-bradycardia could be affecting the patient's mentation although she is perfusing, SBP 115 at the time of my exam
-TSH 24.8, fT4 0.85. Despite free T4 being normal it is at the lower end of the normal range and could be affecting the patient's mentation. Increase Levoxyl to 200mcg.
-highly doubt UTI considering only 3-5 WBC in urine. Will monitor for urinary symptoms and fever and trend CBC.
-check UDS
-hold home narcotics
Bradycardia:
-noted history and BB/Amio held at time of d/c 06/29/25
-hold BB/Amio
-c/s cards
Other problems:
Obesity due to excess calories
CKD3a
Chronic HFpEF
h/o CVA: cont Eliquis
PAF: cont Eliquis, hold BB
L parietal lobe resection
MS, not on meds
Chronic hypoxemic and hypercapnic respiratory failure due to COPD, on 2L NC O2 at baseline
DM2: Cont Lantus/premeal Novolog/SSI/accuchecks, check a1c
Hypothyroidism: Increase levoxyl as above
FULL/Eliquis/tele/OBS
[2025-08-12] MEDS: LEVOTHROID 25 MCG IV (12:28)
--- NOTE | 2025-08-12 12:32 | EDCM ---
CM reviewed chart and met with pt bedside in ED. some inforamtion obtained from pt but most from prior recent admissions. Pt lives with her in apartment at [facility], has elevator access.
Needs assistance with ADLs and personal care. is caregiver, he does all cooking and cleaning.
Pt is an amputee, has RW, WC, commode and glucometer. Also has home O2, uses it at night, unsure of supplier.
Pt transfers to on her own, confirms she does have a walker but not clear on whether she ambulates or not. She told me her is currently at a doctor's appointment so I did not attempt to reach him.
This is her 4th admission since May.
GALLARDO reviewed but pt unable to sign. Copy left for her .
Hx [facility] and [facility] care in past, no hx SNF, has done OP PT/OT at [facility] in [place].
PCP: Tera Shabazz
Pharmacy: [facility]
CM will continue to follow for all discharge planning needs.
--- NOTE | 2025-08-12 13:22 | CON.CAR ---
Addendum entered and electronically signed by Alan Thompson MD 08/12/25 14:49:
I saw and evaluated the patient, and I provided the substantive portion of the medical decision making.
I reviewed and agree with the note by Ms Bui and it accurately reflects our care.
I personally performed the medical decision making of the this encounter and my assessment and plan is below:
Confusion: unclear cause
Bradycardia chronic and known; unlikely contributing stopped metoprolol
She should follow up with home die sizer.
We will sign off please call with questions.
Original Note:
Consultation
Consultation Request
Date/Time Consultation Requested: 08/12/25 1146
Date/Time Consultation Performed: 08/12/25 1200
Requesting Provider: Dr. Robbins
Performing Provider: Virginia ARMENTA for Dr. Thompson
Reason for Consultation: bradycardia
Medical History
-
Chief Complaint: confusion
History of Present Illness:
65 y/o female (die sizer Dr. Obando at [facility] per patient) with HFpEF, CVA, PAF on Eliquis and amiodarone, CKD, DM, hypothyroidism, MS, COPD on O2 at night, hx left partial lobe resection, right BKA, UTI's. She is here for evaluation of
confusion. We are consulted due to bradycardia. During my assessment, she is AAO to self and place. She is answering many of my questions appropriately and following commands. She denies any dizziness or syncope. She denies SOB or CP. EKG shows SB
at 45 BPM, LAD, 1st degree AVB- similar to previous. Of note, last admit amio and metoprolol held for bradycardia, but it appears she is back on both. She is in no distress at the time of my assessment.
Past Medical History
Past Medical History: Arrhythmias, CHF, CVA, Hypothyroidism, NIDDM (on insulin) and Other (as above)
Social History
Tobacco: Former Smoker
Personal:
Living: With Family
Family History
Family History: Reviewed & Not Pertinent
Allergies / Home Medications
Allergy/AdvReac Type Severity Reaction Status Date / Time
Penicillins Allergy Hives Verified 08/12/25 06:26
�Medication �Instructions �Recorded �Confirmed �Type
sertraline 50 mg tablet 50 mg PO DAILY depression/anxiety 03/05/16 08/12/25 History
acetaminophen 325 mg tablet 650 mg PO Q8HPRN PRN mild pain 05/21/25 08/12/25 History
(Tylenol)
albuterol sulfate 90 mcg/actuation 2 puff inhalation R Q4HPRN PRN 05/21/25 08/12/25 History
aerosol inhaler shortness of breath
atorvastatin 20 mg tablet (Lipitor) 20 mg PO HS High Cholesterol 05/21/25 08/12/25 History
bumetanide 2 mg tablet 2 mg PO DAILY Fluid 05/21/25 08/12/25 History
Retention/Swelling
cholecalciferol (vitamin D3) 25 25 mcg PO DAILY Supplement 05/21/25 08/12/25 History
mcg (1,000 unit) tablet (Vitamin
D3)
ferrous sulfate 325 mg (65 mg 325 mg PO TID Supplement 05/21/25 08/12/25 History
iron) tablet
insulin glargine 100 unit/mL (3 8 unit SC DAILY Diabetes 05/21/25 08/12/25 History
mL) subcutaneous pen (Lantus
Solostar U-100 Insulin)
insulin lispro 100 unit/mL 12 unit SC QPM Diabetes 05/21/25 08/12/25 History
subcutaneous pen (Humalog KwikPen
(U-100) Insulin)
insulin lispro 100 unit/mL 14 unit SC DAILY Diabetes 05/21/25 08/12/25 History
subcutaneous pen (Humalog KwikPen
(U-100) Insulin)
sennosides 8.6 mg tablet (senna) 17.2 mg PO DAILYPRN PRN 05/21/25 08/12/25 History
constipation
amlodipine 5 mg tablet (Norvasc) 5 mg PO DAILY Blood Pressure 06/13/25 08/12/25 History
clonazepam 0.5 mg tablet 0.5 mg PO DAILYPRN PRN anxiety 06/13/25 08/12/25 History
amiodarone 200 mg tablet 100 mg PO DAILY Arrhythmia 08/12/25 08/12/25 History
apixaban 5 mg tablet (Eliquis) 5 mg PO BID Blood Clot 08/12/25 08/12/25 History
Prevention/Tx
aspirin 81 mg tablet,delayed 81 mg PO DAILY Blood Clot 08/12/25 08/12/25 History
release Prevention/Tx
baclofen 20 mg tablet 20 mg PO BID Muscle Spasms 08/12/25 08/12/25 History
levothyroxine 175 mcg tablet 175 mcg PO DAILY Thyroid 08/12/25 08/12/25 History
magnesium oxide 500 mg PO DAILY Electrolyte 08/12/25 08/12/25 History
Repletion
metoprolol succinate 25 mg 12.5 mg PO DAILY Blood Pressure 08/12/25 08/12/25 History
tablet,extended release 24 hr
(Toprol XL)
oxybutynin chloride 5 mg tablet 5 mg PO DAILY Urinary Issue 08/12/25 08/12/25 History
oxycodone 5 mg tablet 5 mg PO Q6HPRN PRN SEVERE PAIN 08/12/25 08/12/25 History
Review of Systems
-
History Source: Patient and Other (and chart)
Neurological: Other (confusion)
Physical Exam
Vital Signs
Temp Pulse Resp BP Pulse Ox
97 F 40 18 115/66 94
08/12/25 06:23 08/12/25 11:15 08/12/25 11:15 08/12/25 11:00 08/12/25 11:15
Lab Results
08/12/25 08:36
08/12/25 08:36
Troponin I < 0.012 ng/ml 08/12/25 08:36
Ywe-G-Bygfuukjnwd Pept 1030 pg/ml 08/12/25 08:36
Physical Exam
General: Well Developed, Well Nourished and No Apparent Distress
HEENT: Normocephalic and Anicteric
Respiratory: Clear and Non Labored Respirations
Cardiac: Regular Rhythm
Musculoskeletal: No Edema (mild LLE edema)
Skin: Warm and Dry
Neuro: Awake, Alert and Oriented (x 2)
Psych: Calm
Impression / Plan
-
Confusion:
-w/u and management per primary team
Bradycardia: asymptomatic
-similar to previous. All sinus. In 40's. Stop metoprolol, but continue low dose amiodarone, since hx PAF.
-follow-up with Dr. Obando after d/c.
-TSH abnormal (elevated) and hospitalists adjusting medications
PAF:
-stable in SR
-stop metoprolol for bradycardia, but continue low dose amiodarone
-on Eliquis for OAC
-f/u with primary die sizer after d/c
HFpEF, chronic: stable
-on bumex. Does not appear overloaded. Repeat potassium pending, as first hemolyzed.
HTN:
-stable on meds
-monitor
Data Reviewed
-
EKG: Tracing Personally Visualized and interpreted (SB at 45 BPM, LAD, 1st degree AVB)
Radiology: Report Reviewed by me (CXR: No radiographic evidence of acute cardiopulmonary abnormality. Chronic elevation of the left hemidiaphragm with small amount of scarring/atelectasis along the left lung base.)
Medical Tests (Nuc Med, Echo etc): Report Reviewed by me (echo 06/14/25: Normal biventricular size and systolic function without regional wall motion abnormality. LV ejection fraction is 55-60% by visual assessment. No significant valvular
disease. Estimated pulmonary artery pressure of 20-25 mmHg. )
Labs: Labs Reviewed by me
--- NOTE | 2025-08-12 15:23 | PTCARENOTE ---
Pt admitted to . Patient sinus arden on tele monitor. HR 45. MD aware. Call cazares within reach. Patient oriented to floor.
[2025-08-12] MEDS: FEOSOL 325 MG PO ×2 (15:33→21:34)
[2025-08-12 15:36] LABS: Glucose - Point of Care 160 mg/dl (70-99)
[2025-08-12] MEDS: NOVOLOG FLEXPEN-MODERATE RESISTANCE 1 UNITS SC (16:00)
[2025-08-12] MEDS: NOVOLOG FLEXPEN 12 UNITS SC (17:49)
[2025-08-12 17:52] LABS: Glucose - Point of Care 197 mg/dl (70-99)
[2025-08-12] MEDS: ELIQUIS 5 MG PO (20:23)
[2025-08-12] MEDS: DESENEX/MITRAZOL/ZEASORB 1 APPLIC TOPICAL (20:24)
[2025-08-12] MEDS: LIPITOR 20 MG PO (21:34)
[2025-08-12] MEDS: MELATONIN 5 MG PO (21:34)
[2025-08-12 21:37] LABS: Glucose - Point of Care 155 mg/dl (70-99)
[2025-08-13 03:13] VITALS: BP 137/63
[2025-08-13 05:02] VITALS: BMI 32.8
[2025-08-13] MEDS: SYNTHROID 200 MCG PO (05:20)
[2025-08-13 07:10] VITALS: BP 135/58
[2025-08-13 07:31] LABS: Blood Urea Nitrogen 18 mg/dl (7-17); Calcium 9.0 mg/dl (8.4-10.2); Carbon Dioxide 30 mmol/L (22-30); Chloride 107 mmol/L (98-107); Estimated Creatinine Clearance 62 ml/min; Glucose 142 mg/dl (70-99); Potassium 3.4 mmol/L (3.5-5.1); Sodium 144 mmol/L (135-145); eGFR > 60.00
[2025-08-13 07:39] LABS: Hematocrit 38.7 % (37.0-47.0); Hemoglobin 12.3 g/dL (12.0-16.0); Mean Corp Hgb Conc. 31.8 g/dL (33.0-37.0); Mean Corpuscular Volume 88.6 fL (81.0-99.0); Platelet Count 203 10^3/uL (130-400); Red Cell Dist. Width 15.4 % (11.5-14.5)
[2025-08-13 08:26] LABS: Glucose - Point of Care 131 mg/dl (70-99)
--- NOTE | 2025-08-13 08:48 | W.PN.HOSP.TC ---
Addendum entered and electronically signed by Gil Robbins MD 08/13/25 11:48:
Total time spent on d/c = 34 min. This included today's physical exam, progress note, review of laboratory and diagnostic data, preparation of discharge documents and prescriptions, and discussions about the pt's hospital course and discharge plan
with the patient and other medical art therapist involved in the patient's care.
Original Note:
Today's Communication/Plan
-
see plan
Assessment / Plan
Assessment / Plan
Gen: NAD, Awake and alert
Eyes: EOMI, PERRLA, no scleral icterus.
ENMT: hursuit face
Neck: supple.
CV: remains arden, reg rhythm, +S1/S2, no m/r/g.
Resp: remains CTAB, no rales, wheezes, or rhonchi.
Abd: +BS, soft, NT, ND
Skin: No rashes. 1+ LLE edema
Neuro: CN 2-12 intact, non-focal.
Psych: Normal mood and affect.
CT brain:
1. Moderate chronic encephalomalacia in the left parietal lobe.
2. Chronic resolved intraparenchymal hemorrhage or hemorrhagic infarct in the left basal ganglia with a band of residual encephalomalacia.
3. Moderate white matter leukoaraiosis in the right parietal lobe.
4. Moderate cerebellar volume loss.
5. Mild global cerebral volume loss.
CXR: No radiographic evidence of acute cardiopulmonary abnormality. Chronic elevation of the left hemidiaphragm with small amount of scarring/atelectasis along the left lung base.
ECG (read by me): SB @ 45, L-axis, No acute ST/TW changes
Subacute confusion:
-work up in ER fairly unrevealing
-afebrile, no leukocytosis
-imaging unremarkable
-VBG shows chronic hypercapnia, unchanged. Pt is 95% on RA in ER.
-bradycardia could be affecting the patient's mentation although she is perfusing, SBP 115 at the time of my exam
-TSH 24.8, fT4 0.85. Despite free T4 being normal it is at the lower end of the normal range and could be affecting the patient's mentation. Levoxyl increased to 200mcg.
-highly doubt UTI considering only 3-5 WBC in urine. Will monitor for urinary symptoms and fever and trend CBC.
-UDS NEG 08/12 but on 08/13 POS for amphetamines
-holding home narcotics
Bradycardia:
-noted history and BB/Amio held at time of d/c 06/29/25
-appreciate cardiology
-cont Amio
-BB stopped
Other problems:
Obesity due to excess calories
CKD3a
Chronic HFpEF: BB stopped due to bradycardia
h/o CVA: cont Eliquis
PAF: cont Eliquis, BB stopped due to bradycardia
L parietal lobe resection
MS, not on meds
Chronic hypoxemic and hypercapnic respiratory failure due to COPD, on 2L NC O2 at baseline
DM2: Cont Lantus/premeal Novolog/SSI/accuchecks, check a1c
Hypothyroidism: Levoxyl increased as above
FULL/Eliquis/tele/OBS
Dispo: PT/OT then discharge
Anticipated Discharge: Today
Subjective/Interval History
-
Date of Service: August 13, 2025
No new complaints.
Objective Data
-
Labs:
Laboratory Results
08/12/25 08/13/25
21:43 06:19
WBC 7.1
Hgb 12.3
Hct 38.7
Plt Count 203 D
Sodium 144
Potassium Cancelled 3.4 L
Chloride 107
Carbon Dioxide 30
BUN 18 H
Creatinine 1.0
Glucose 142 H
Calcium 9.0
Vital Signs:
Vital Signs
Temp Pulse Resp BP Pulse Ox
98.3 F 46 16 135/58 92
08/13/25 07:10 08/13/25 07:10 08/13/25 07:10 08/13/25 07:10 08/13/25 07:10
I&O
08/12/25 08/13/25 08/14/25
06:59 06:59 06:59
Intake Total 550 / 550
Balance 550 / 550
[2025-08-13 09:00] LABS: Glycohemoglobin (HgbA1c) 7.1 % (4.0-5.6)
[2025-08-13] MEDS: NOVOLOG FLEXPEN-MODERATE RESISTANCE SC (09:00)
[2025-08-13] MEDS: MAGNESIUM OXIDE 400 MG PO (09:01)
[2025-08-13] MEDS: PACERONE 100 MG PO (09:02)
[2025-08-13] MEDS: BUMEX 2 MG PO (09:02)
[2025-08-13] MEDS: DITROPAN 5 MG PO (09:02)
[2025-08-13] MEDS: ZOLOFT 50 MG PO (09:03)
[2025-08-13] MEDS: ASPIR LOW (ENTERIC COATED) 81 MG PO (09:03)
[2025-08-13] MEDS: NORVASC 5 MG PO (09:03)
[2025-08-13] MEDS: ELIQUIS 5 MG PO (09:04)
[2025-08-13] MEDS: FEOSOL 325 MG PO (09:05)
[2025-08-13] MEDS: LANTUS 0.08 UNITS SC (09:05)
[2025-08-13] MEDS: DESENEX/MITRAZOL/ZEASORB 1 APPLIC TOPICAL (09:05)
[2025-08-13] MEDS: NOVOLOG FLEXPEN 14 UNITS SC (09:06)
[2025-08-13] MEDS: VITAMIN D3 (cholecalciferol) 25 MCG PO (09:08)
[2025-08-13] MEDS: KCL 40 MEQ PO (09:08)
--- NOTE | 2025-08-13 11:10 | CM ---
CM following re: discharge planning.
Reviewed pt's chart, met with pt and pt's at bedside.
According to pt is medically stable to be discharged today. Both pt and her are aware, expressed their agreement and stated he will transport his spouse home. Pt remains OBS status.
Pt's stated that pt will resume outpatient therapy at [facility] outpatient therapy.
D/C plan: home with resumptions of outpatient therapy at [facility] outpatient and family support. to transport.
--- NOTE | 2025-08-13 11:29 | W.DCSUMMARY ---
Discharge Summary
Discharge Data
Date of Admission: 08/12/25
Date of Discharge: 08/13/25
-
Pending Results: No
Hospital Course
Primary diagnoses:
Altered mental status
Possible acute toxic metabolic encephalopathy
Secondary diagnoses:
Obesity due to excess calories
Chronic kidney disease 3a
Chronic heart failure preserved ejection fraction
h/o cerebrovascular accident
Paroxysmal atrial fibrillation
Left parietal lobe resection
Multiple sclerosis
Chronic hypoxemic and hypercapnic respiratory failure due to chronic obstructive pulmonary disease, on 2L NC O2 at baseline
Type 2 diabetes mellitus
Hypothyroidism
Consultants:
Cardiology
Imaging:
CT brain:
1. Moderate chronic encephalomalacia in the left parietal lobe.
2. Chronic resolved intraparenchymal hemorrhage or hemorrhagic infarct in the left basal ganglia with a band of residual encephalomalacia.
3. Moderate white matter leukoaraiosis in the right parietal lobe.
4. Moderate cerebellar volume loss.
5. Mild global cerebral volume loss.
CXR: No radiographic evidence of acute cardiopulmonary abnormality. Chronic elevation of the left hemidiaphragm with small amount of scarring/atelectasis along the left lung base.
ECG (read by me): SB @ 45, L-axis, No acute ST/TW changes
65-year-old female presenting with a chief complaint of subacute confusion as outlined in the H&P done on admission. Hospital course per problem list:
Subacute confusion: Patient's workup in the ER was unrevealing. She was afebrile without leukocytosis in the ER and during hospitalization. Her imaging was unremarkable. VBG showed chronic hypercapnia, unchanged. She was saturating well on room
air on admission. Bradycardia could have minimally affected the patient's mentation although she maintained an adequate blood pressure while hospitalized. Cardiology saw the patient consultation. Her beta-annel was stopped. TSH 24.8, fT4 0.85.
Despite free T4 being normal it is at the lower end of the normal range and could be affecting the patient's mentation. The patient was given 25 mcg IV Synthroid on the day of admission and Levoxyl was increased to 200mcg. I did confirm that the
patient had been taking her Levoxyl 1 hour prior to breakfast every day. I also highly doubt the patient had a UTI considering only 3-5 WBC in urine and NEG nitrite. The patient remained afebrile without leukocytosis throughout hospitalization.
At the time of discharge patient's urine culture was growing gram-negative rods. I suspect that this represents asymptomatic bacteriuria. UDS NEG 08/12 but on 08/13 positive for amphetamines. The patient's home baclofen and narcotics were held and
were not restarted on discharge (possible acute toxic metabolic encephalopathy). The patient was discharged in medically stable condition.
Discharge Plan
-
Patient Disposition: Home (Routine Discharge)
Discharge Diagnosis/Procedures: Altered mental status
Condition: Fair
Diet: Diabetic, Carb Controlled
Activity: With assistance
Driving Restrictions: No driving
Blood Work: BMP and CBC in 1 week, thyroid function tests in 4 weeks, prescriptions from PCP
Referrals:
Tera Perez DO [Family Provider, Internal Medicine]
Prescriptions:
New
levothyroxine 200 mcg Tablet
200 mcg PO DAILY @ 0600 Qty: 30 0RF
Continued
sertraline 50 MG tablet
50 mg PO DAILY
sennosides [senna] 8.6 mg Tablet
17.2 mg PO DAILYPRN PRN (Reason: constipation)
acetaminophen [Tylenol] 325 mg Tablet
650 mg PO Q8HPRN PRN (Reason: mild pain)
atorvastatin [Lipitor] 20 mg Tablet
20 mg PO HS
bumetanide 2 mg Tablet
2 mg PO DAILY
ferrous sulfate 325 mg (65 mg iron) Tablet
325 mg PO TID
albuterol sulfate 90 mcg/actuation Hfa Aerosol Inhaler
2 puff INHALATION R Q4HPRN PRN (Reason: shortness of breath)
insulin lispro [Humalog KwikPen Insulin] 100 unit/mL Insulin Pen
12 unit SC QPM
insulin lispro [Humalog KwikPen Insulin] 100 unit/mL Insulin Pen
14 unit SC DAILY
cholecalciferol (vitamin D3) [Vitamin D3] 25 mcg (1,000 unit) Tablet
25 mcg PO DAILY
insulin glargine [Lantus Solostar U-100 Insulin] 100 unit/mL (3 mL) Insulin Pen
8 unit SC DAILY
clonazepam 0.5 mg Tablet
0.5 mg PO DAILYPRN PRN (Reason: anxiety)
amlodipine [Norvasc] 5 mg Tablet
5 mg PO DAILY
amiodarone 200 mg Tablet
100 mg PO DAILY
oxybutynin chloride 5 mg Tablet
5 mg PO DAILY
aspirin 81 mg Tablet,Delayed Release (Dr/Ec)
81 mg PO DAILY
magnesium oxide 500 mg magnesium tablet
500 mg PO DAILY
Eliquis 5 mg tablet
5 mg PO BID
Discontinued
metoprolol succinate [Toprol XL] 25 mg Tablet Extended Release 24 Hr
12.5 mg PO DAILY
baclofen 20 mg Tablet
20 mg PO BID
levothyroxine 175 mcg tablet
175 mcg PO DAILY
oxycodone 5 mg Tablet
5 mg PO Q6HPRN PRN (Reason: SEVERE PAIN)
Discharge Date and Time
Print Language: S[place]
[2025-08-13 11:55] VITALS: BP 143/79
[2025-08-13 12:49] LABS: Glucose - Point of Care 173 mg/dl (70-99)
[2025-08-13] MEDS: NOVOLOG FLEXPEN-MODERATE RESISTANCE 1 UNITS SC (13:22)
[2025-08-13 14:53] VITALS: BP 156/77
== END 2025-08-13 16:27 | disposition home or self-care (01) ==
LOC: 2 NORTH 13:25
PROVIDERS: Physician Assistant; ADMITTING PHYSICIAN Internal Medicine; CONSULT PHYSICIAN Internal Medicine Cardiovascular Disease; EMERGENCY PHYSICIAN Emergency Medicine; FAMILY PHYSICIAN Internal Medicine
DX: R41.82 Altered mental status, unspecified (principal); R00.1 Bradycardia, unspecified; E66.09 Other obesity due to excess calories; N18.31 Chronic kidney disease, stage 3a; I50.32 Chronic diastolic (congestive) heart failure; Z86.73 Personal history of transient ischemic attack (TIA), and cerebral infarction without residual deficits; I48.0 Paroxysmal atrial fibrillation; J96.11 Chronic respiratory failure with hypoxia; J96.12 Chronic respiratory failure with hypercapnia; E11.22 Type 2 diabetes mellitus with diabetic chronic kidney disease; G47.30 Sleep apnea, unspecified; G93.89 Other specified disorders of brain; I13.0 Hypertensive heart and chronic kidney disease with heart failure and stage 1 through stage 4 chronic kidney disease, or unspecified chronic kidney disease; J98.11 Atelectasis; J44.9 Chronic obstructive pulmonary disease, unspecified; E03.9 Hypothyroidism, unspecified; Z11.52 Encounter for screening for COVID-19; Z68.32 Body mass index [BMI] 32.0-32.9, adult; Z79.890 Hormone replacement therapy; Z79.899 Other long term (current) drug therapy; Z79.01 Long term (current) use of anticoagulants; Z99.81 Dependence on supplemental oxygen; Z79.4 Long term (current) use of insulin; Z87.440 Personal history of urinary (tract) infections; Z87.891 Personal history of nicotine dependence
CPT/HCPCS: 70450; 71046; 80048; 80306; 80307; 81003; 81015; 82805; 82962; 83036; 83880; 84439; 84443; 84484; 85025; 85027; 87070; 87077; 87086; 87186; 87502; 87811; 93005; 99285; G0378